=== PATIENT | female | born 1940 | race Caucasian/White ===

== ENCOUNTER 2017-02-22 09:25 | Inpatient (IN) | payer MEDICARE, OTHER ==
[2017-02-22 10:38] LABS: #Eosinphils 0.2 thou/uL (0.0-0.7); #Monocytes 0.7 thou/uL (0.11-0.59); #Neutrophils 6.8 thou/uL (1.40-6.50); %Basophils 0.4 % (0.0-1.0); %Eosinophils 1.9 % (0.0-10.0); %Lymphocytes 20.3 % (21.0-51.0); %Monocytes 7.4 % (0.0-10.0); Hemoglobin 12.8 g/dL (12.0-16.0); Mean Corpuscular HGB CONC 33.4 g/dL (32.0-36.0); Mean Corpuscular Hemoglobin 31.9 pg (27.0-31.0); Mean Corpuscular Volume 95.6 fl (81.0-99.0); Mean Platelet Volume 7.5 fL (7.4-10.4); Platelet Count 266 thou/uL (130-400); RBC Distribution Width 11.1 % (11.5-14.5); Red Blood Cell (RBC) Count 4.02 mill/uL (4.20-5.40); White Blood Cell (WBC) Count 9.7 thou/uL (4.8-10.8)
[2017-02-22] MEDS ORDERED: Ketorolac Tromethamine 30 MG/ML VIAL ONE (10:38)
[2017-02-22 10:54] LABS: Troponin I 0.017 ng/mL (< 0.028)
[2017-02-22 10:55] LABS: Prothrombin Time 13.7 SEC (12.0-14.7)
[2017-02-22 11:04] LABS: Lipase 3304 U/L (8-78)
[2017-02-22 11:10] LABS: PTT Less than 17.0 SEC (22.9-36.1)
[2017-02-22 11:24] LABS: Albumin 3.8 g/dL (3.4-4.8)
[2017-02-22 11:25] LABS: Chloride 108 mmol/L (98-107); Sodium 137 mmol/L (136-145)
[2017-02-22 11:26] LABS: Calcium 10.5 mg/dL (7.8-10.44); Glucose 256 mg/dL (83-110)
[2017-02-22 11:27] LABS: Globulin 3.2 g/dL (2.4-3.5)
[2017-02-22 11:28] LABS: Anion Gap 18 mmol/L (10-20); Bilirubin, Total 1.4 mg/dL (0.2-1.2); Carbon Dioxide 16 mmol/L (23-31)
[2017-02-22 11:29] LABS: Alkaline Phosphatase 72 U/L (40-150)
[2017-02-22 11:30] LABS: Calc. Creatinine Clearance 0 mL/min (70-130); Estimated GFR-MDRD 31
[2017-02-22 11:31] LABS: BUN (Urea Nitrogen) 43 mg/dL (9.8-20.1)
[2017-02-22 11:32] LABS: ALT (SGPT) 38 U/L (8-55); AST (SGOT) 70 U/L (5-34); CKMB 1.3 ng/mL (0-6.6)
[2017-02-22 11:33] LABS: CK (CPK) 33 U/L (29-168)
[2017-02-22 11:35] LABS: Bilirubin Negative (Negative); Blood, Urine Negative (Negative); Glucose, Urine (Dipstick) Negative (Negative); Leukocyte Trace (Negative); Nitrite Positive (Negative); Protein, Urine (Dipstick) 30 mg/dL (Neg-Trace); Specific Gravity, Urine 1.025 (1.005-1.030); Urobilinogen 0.2 mg/dL (0.2-1.0); pH, Urine 5.5 (5.0-9.0)
[2017-02-22 11:37] LABS: Clarity Clear (Clear)
[2017-02-22 11:47] LABS: RBC/HPF None Seen HPF (0-3)
[2017-02-22 11:48] LABS: Bacteria/HPF 4+ HPF (None Seen); Hyaline Casts/LPF 0-3 HYALINE CAST LPF (0-3 Hyaline)
--- NOTE | 2017-02-22 11:55 | RAD ---
PORTABLE UPRIGHT FRONTAL CHEST: Date: 02/22/17 COMPARISON: 06/30/16. HISTORY: Hemoptysis, hypoxia, right upper lobe pneumonia, or bronchoscopy. FINDINGS: Lungs are clear. Heart and mediastinal contours unremarkable. Stable transvenous pacing device. IMPRESSION: No acute findings. POS: [facility]
[2017-02-22] MEDS ORDERED: Iopamidol 370 76% 50 ML VIAL FS ONE (12:30)
[2017-02-22] MEDS ORDERED: ISOVUE-370 76%-LOCM 1 ML ONE (12:30)
--- NOTE | 2017-02-22 13:02 | CT ---
CT OF ABDOMEN AND PELVIS: Date: 02/22/17 COMPARISON: 07/02/16. HISTORY: Back pain and abdominal pain radiating into the legs. TECHNIQUE: Serial axial CT imaging at 5 mm intervals from lung bases through pubic symphysis with IV and oral co ntrast. Coronal reformatted imaging obtained. FINDINGS: The imaged lung bases are unremarkable. Cardiac silhouette is prominent. Incompletely imaged transven ous pacing device in place. No free intraperitoneal air or fluid. Mild intrahepatic biliary prominence is noted. The patient is status post cholecystectomy, likely acc ounting for this intrahepatic biliary prominence. CBD is dilated, also likely associated to prior cholecystectomy. Clinical correlation is required. Spleen, pancreas, and adrenal glands are unremarkable. Both kidneys are relatively atrophic and demon strate cortical thinning, a stable finding. Punctate nonobstructing stone noted in mid pole of right kidney. Neither kidney is obstructed. Extensive diverticulosis of the descending colon and sigmoid colon noted with no evidence for diverti culitis. No evidence for bowel inflammatory change or bowel obstruction. The appendix appears unremarkable. There is scattered atherosclerotic calcification of the abdominal aorta, mild. There is no pelvic, retroperitoneal, or mesenteric lymphadenopathy seen. Review of the osseous structures demonstrates multilevel significant degenerative disc disease within the lumbar spine, including disc space narrowing, degenerative end plate change, osteophyte formatio n, and vacuum disc formation at L3-4, L4-5, and L5-S1. IMPRESSION: 1. Status post cholecystectomy with prominence of the intra and extrahepatic biliary tree, likely on the basis of reservoir effect associated with prior surgery. Correlation with LFTs may be beneficial . 2. No free intraperitoneal air or evidence of bowel obstruction. 3. Subcentimeter nonobstructing stone mid pole right kidney. 4. Lumbar spine degenerative change. 5. Extensive colonic diverticulosis without evidence for diverticulitis. POS: [facility]
[2017-02-22] MEDS ORDERED: Cefepime 2 GM/10 ML SYR ONE ×2 (13:20→13:25)
[2017-02-22] MEDS ORDERED: Cefepime 2 GM, Syringe 2.5 ML in Sterile Water 10 ML SLOW IVP SCH (13:45)
--- NOTE | 2017-02-22 14:33 | HP ---
PRIMARY CARE PHYSICIAN: Dr. Jaime Rogers. REASON FOR ADMISSION: Acute pancreatitis, urinary tract infection, dehydration , acute on chronic kidney failure. HISTORY OF PRESENT ILLNESS: A 76-year-old female with a history of hypertension , diabetes type 2, and obesity who came to emergency room with complaint of midepigastric abdominal pain which is radiating to back. Patient also has lower back pain and that pain radiates to right leg. The patient was also having nausea, but no vomiting. She was feeling subjective warm. She does report that her urine was very foul smelling and discolored, but she denies any hematuria. She denies any lower abdominal pain. The patient was not able to tolerate food and her appetite has also reduced. Her pain was in the epigastric region which was intermittent and sharp in nature, about 5/10 in intensity getting worse with food. Patient's daughter gave her Tylenol #3 this morning, but her pain has not improved. She denies any chest pain. She does report mild shortness of breath. She denies any chills. She denies any hematochezia or melena. She denies any focal motor symptoms. Today in the emergency room, she had routine blood test, which showed elevated creatine to 1.62. Her lipase was elevated to 3304. Her urinalysis was suggestive of urinary tract infection. CT of the abdomen and pelvis which was done in the emergency room which showed prominence of bile duct and diverticulosis without any significant acute finding. Chest x-ray was unremarkable. In the emergency room, patient has received cefepime, IV fluid, and Toradol 15 mg. Subsequently, we are admitting this patient to medical floor for treatment of pancreatitis, urinary tract infection. I spoke with patient's daughter, Ms. Antoine on [phone] and updated about patient's presentation as well as the diagnosis and treatment plan and also history obtained from her as well. PAST MEDICAL HISTORY: Diabetes type 2, coronary artery disease, morbid obesity , hypertension, hypothyroidism, dyslipidemia, and gastroesophageal reflux disease. PAST SURGICAL HISTORY: Pacemaker placement, bilateral knee replacement, cholecystectomy, and lumbar spine surgery. PAST PSYCHIATRIC HISTORY: Anxiety and depression. FAMILY HISTORY: Diabetes runs among several family members. Father had a history of leukemia. No strong family history of stroke or coronary artery disease. SOCIAL HISTORY: The patient lives with her daughter, Elina. She denies any tobacco, alcohol or illicit drug abuse. REVIEW OF SYSTEMS: The following complete review of systems was negative, unless otherwise mentioned in the HPI or below: Constitutional: Weight loss or gain, ability to conduct usual activities. Skin: Rash, itching. Eyes: Double vision, pain. ENT/Mouth: Nose bleeding, neck stiffness, pain, tenderness. Cardiovascular: Palpitations, dyspnea on exertion, orthopnea. Respiratory: Shortness of breath, wheezing, cough, hemoptysis, fever or night sweats. Gastrointestinal: Poor appetite, abdominal pain, heartburn, nausea, vomiting, constipation, or diarrhea. Genitourinary: Urgency, frequency, dysuria, nocturia. Musculoskeletal: Pain, swelling. Neurologic/Psychiatric: Anxiety, depression. Allergy/Immunologic: Skin rash, bleeding tendency. Please see my HPI for pertinent positives and negatives. All other review of systems reviewed and negative except as mentioned in the HPI. EMERGENCY ROOM COURSE: Patient has received cefepime 2 g, normal saline 1 liter and Toradol 15 mg. CURRENT HOME MEDICATIONS: Patient did not bring her home medications, so unable to verify her home medication, but based on our previous hospitalization , the patient is on following medications: Tylenol p.r.n. basis, vitamin D3 2000 units p.o. daily, Lexapro 20 mg p.o. daily, Synthroid 125 mcg p.o. daily, losartan 100 mg p.o. daily, metoprolol succinate 50 mg p.o. daily, ranitidine 150 mg p.o. b.i.d., Zocor 20 mg p.o. at bedtime, and trospium 20 mg p.o. b.i.d. ALLERGIES: HYDROCODONE, LEVOFLOXACIN, and MORPHINE. PHYSICAL EXAMINATION: VITAL SIGNS: On arrival, blood pressure 143/64, pulse 72, respiratory rate 28, saturation 98% on room air, temperature 97.6, weight 106.6 kilograms. GENERAL: Patient is currently alert, awake, no acute distress. HEAD: Normocephalic, atraumatic. EYES: Pupils round, reactive to light. Extraocular muscle intact. No nystagmus. ENT: Oropharynx within normal limits, somewhat dry appearing mucous membranes. No oral lesions. No pharyngeal erythema, no exudate. NECK: Supple, no JVD, no thyromegaly, no carotid bruit, no meningeal signs of irritation. LUNGS: Clear to auscultation without any rhonchi or rales. CARDIAC: S1, S2 regular. No murmur, no gallop, no rub. ABDOMEN: Patient does have epigastric tenderness, but no peritoneal sign, no organomegaly, no mass, no suprapubic tenderness, no distention. Bowel sounds present. BACK: Examination unremarkable, no CVA tenderness. EXTREMITIES: Upper extremity passive movements of all joints are normal. Lower extremities: No edema. Good peripheral pulsation. SKIN: No skin rash. HEMATOLOGICAL SYSTEM: No lymphadenopathy. PSYCHIATRIC: Normal affect. NEUROLOGIC: Nonfocal examination. Her speech is normal. She moves all 4 limbs. Plantar bilateral flexor. IMAGING DATA AND SIGNIFICANT LABORATORY DATA: 1. EKG showing pacemaker rhythm. 2. Chest x-ray based on my review, no acute cardiopulmonary process. 3. CT of the abdomen and pelvis showing nonobstructive nephrolithiasis on the right side, diverticulosis, cholecystectomy, degenerative spine, medical renal disease. 4. CBC: WBC 9.7, hemoglobin 12.8, platelet 266. INR 1.0. 5. BMP: Sodium 137, potassium 5.0, chloride 108, carbon dioxide 16, anion gap 18, BUN 43, creatinine 1.62, glucose 256, calcium 10.5. 6. LFT: AST 70, ALT 38, alkaline phosphatase 72, albumin 3.8, lipase 3304, CK- MB 1.3, CK 32, troponin I 0.010. 7. Urinalysis consistent with urinary tract infection. ASSESSMENT AND PLAN/IMPRESSION: 1. Acute pancreatitis. This patient has epigastric abdominal pain which radiates to back, associated with elevated lipase 3304. Patient's CT abdomen and pelvis with contrast not showing any inflammatory changes around pancreas, but she has mild intrahepatic biliary prominence. She has cholecystectomy done , possibility of choledocholithiasis is likely, but patient does not have any elevated alkaline phosphatase. I am not certain why her lipase is this much unlimited but clinically patient has pancreatitis. We will keep this patient n.p.o. We will hydrate her with IV fluid and we will repeat lipase tomorrow and we will advance her diet from tomorrow once lipase is improving. We will also do ultrasound of gallbladder for better evaluation of any biliary stones in the bile duct. 2. Urinary tract infection. Based on previous culture and sensitivity result, I will start Rocephin 1 gram q.24 hours. Patient had received cefepime in the emergency room, patient also has foul smelling urine, but she is not febrile. She does not have any clinical evidence of pyelonephritis. She does have right- sided nephrolithiasis which is not obstructive. 3. Acute on chronic kidney failure, likely due to prerenal etiology from dehydration. This patient has underlying diabetic nephropathy with chronic kidney disease stage 3. Currently, mild metabolic acidosis and worsening renal failure. Patient will be given IV fluid and will repeat BMP tomorrow. We will avoid nephrotoxin agent. This patient has diastolic dysfunction, so we will watch for any fluid overload status. 4. Hypercalcemia, likely related with dehydration. 5. Mild metabolic acidosis likely related with dehydration and we are expecting hypercalcemia and metabolic acidosis will improve with hydration. 6. Diabetes type 2. We will continue with insulin as per sliding scale per protocol given the patient will be n.p.o., so we will hold on any specific therapy. We will monitor Accu-Chek very closely. 7. Anxiety and depression. Continue Lexapro 20 mg p.o. daily and trospium 20 mg p.o. b.i.d. after verification of dose. 8. Hypothyroidism. We will continue Synthroid 125 mcg p.o. daily. 9. Hypertension. Currently, patient is hypertensive, so we will resume losartan 100 mg p.o. daily and Toprol-XL 50 mg p.o. daily. 10. Dyslipidemia. We will check lipid profile tomorrow morning because of pancreatitis and we will continue Zocor 20 mg p.o. at bedtime. 11. Deep venous thrombosis prophylaxis, heparin 5000 units subcu twice daily. 12. Gastrointestinal prophylaxis, Protonix 40 mg IV daily. 13. Code status: The patient is FULL CODE. Patient's daughter is surrogate decision maker. Disposition plan based on clinical course. We are expecting patient's stay in hospital more than p.o. b.i.d. Plan of care discussed with the patient's daughter on the phone. MARIO
[2017-02-22] MEDS ORDERED: Ondansetron ODT 4 MG TAB SL PRN (16:29)
[2017-02-22] MEDS ORDERED: Ondansetron HCl/PF 4 MG/2 ML Vial IVP PRN ×2 (16:29→16:38)
[2017-02-22] MEDS ORDERED: Acetaminophen 325 MG TAB PO PRN (16:29)
[2017-02-22] MEDS ORDERED: Sodium Chloride 0.9% 1,000 ML IV SCH (16:29)
[2017-02-22] MEDS ORDERED: HumaLOG 300 UNITS/3 ML VIAL SC PRN (16:38)
[2017-02-22] MEDS ORDERED: Dextrose 50% Abboject 50 ML SYRINGE SLOW IVP PRN (16:38)
[2017-02-22] MEDS ORDERED: Milk Of Magnesia 30 ML UDCUP PO PRN (16:38)
[2017-02-22] MEDS ORDERED: Mag-Al 1200 mg/1200 mg/30 ML UDCUP PO PRN (16:38)
[2017-02-22] MEDS ORDERED: Sodium Chloride 0.65% Nasal 44 ML BOT EA NARE PRN (16:38)
[2017-02-22] MEDS ORDERED: Diabetic Tussin 200 MG/10 ML UDCUP PO PRN (16:38)
[2017-02-22] MEDS ORDERED: Artificial Tears 18 DROP/0.9 ML EA EYE PRN (16:38)
[2017-02-22] MEDS ORDERED: cefTRIAXone\\ROCEPHIN 1 GM in Sodium Chloride 0.9% 100 ML IVPB SCH (16:38)
[2017-02-22] MEDS ORDERED: Chloraseptic Spray 180 ml Bottle PO PRN (16:38)
[2017-02-22] MEDS ORDERED: hydrALAZINE 20 MG/ML VIAL SLOW IVP PRN (16:38)
[2017-02-22] MEDS ORDERED: Ondansetron ODT 4 MG TAB PO PRN (16:38)
[2017-02-22] MEDS ORDERED: Loperamide HCl 2 MG CAP PO PRN (16:38)
[2017-02-22] MEDS ORDERED: Dextrose 5% in Water 1,000 ML IV PRN (16:38)
[2017-02-22] MEDS ORDERED: Nystatin Powder 15 GM BOT TOP PRN (16:38)
[2017-02-22] MEDS ORDERED: Loratadine 10 MG TAB PO PRN (16:38)
[2017-02-22] MEDS ORDERED: Eucerin (Mineral Oil/Petrolatum,White) 30 gm Jar TOP PRN (16:38)
[2017-02-22] MEDS ORDERED: Senokot 8.6 MG TAB PO PRN (16:38)
[2017-02-22] MEDS ORDERED: Fentanyl 100 MCG/2 ML VIAL SLOW IVP PRN (16:38)
[2017-02-22] MEDS: Sodium Chloride 0.45% 1,000 ML IV SCH (17:18)
[2017-02-22 17:28] VITALS: BMI 39.9
[2017-02-22] MEDS: cefTRIAXone\\ROCEPHIN 1 GM, Syringe 0.4 ML in Sterile Water 9.6 ML SLOW IVP SCH (18:19)
--- NOTE | 2017-02-22 19:46 | ULT ---
RIGHT UPPER QUADRANT ULTRASOUND: History: Acute pancreatitis. Comparison: CT same day. FINDINGS: Pancreas is not well seen. The main portal vein is patent with antegrade flow. Mild extrahepatic bili shima dilatation. Right kidney is 9.2 x 3.8 x 3.2 cm without abnormal calcification. Common bile duct m easures 1.6 cm. Gallbladder has been surgically removed. IMPRESSION: Intrahepatic and extrahepatic biliary dilatation. No choledocholithiasis is appreciated. Distal stone is possible versus papillary stenosis. ERCP recommended. POS: [facility]
[2017-02-22] MEDS: Heparin 5,000 UNITS/ML VIAL SC SCH (20:44)
[2017-02-22] MEDS: Simvastatin 20 MG TAB PO SCH (20:44)
[2017-02-23] MEDS: Acetaminophen 325 MG TAB PO PRN ×4 (02:45→21:03)
[2017-02-23] MEDS: Sodium Chloride 0.45% 1,000 ML IV SCH ×3 (03:00→21:05)
[2017-02-23 05:03] LABS: #Eosinphils 0.2 thou/uL (0.0-0.7); #Lymphocytes 1.7 thou/uL (1.20-3.40); #Monocytes 0.6 thou/uL (0.11-0.59); #Neutrophils 3.9 thou/uL (1.40-6.50); %Basophils 0.1 % (0.0-1.0); %Eosinophils 3.8 % (0.0-10.0); %Lymphocytes 26.8 % (21.0-51.0); %Neutrophils 60.3 % (42.0-75.0); Hemoglobin 11.8 g/dL (12.0-16.0); Mean Corpuscular HGB CONC 33.6 g/dL (32.0-36.0); Mean Corpuscular Hemoglobin 32.1 pg (27.0-31.0); Mean Corpuscular Volume 95.6 fl (81.0-99.0); Mean Platelet Volume 7.1 fL (7.4-10.4); Platelet Count 240 thou/uL (130-400); RBC Distribution Width 10.9 % (11.5-14.5); Red Blood Cell (RBC) Count 3.68 mill/uL (4.20-5.40); White Blood Cell (WBC) Count 6.4 thou/uL (4.8-10.8)
[2017-02-23 05:17] LABS: ALT (SGPT) 116 U/L (8-55); AST (SGOT) 103 U/L (5-34); Albumin 3.4 g/dL (3.4-4.8); Alkaline Phosphatase 80 U/L (40-150); Anion Gap 12 mmol/L (10-20); BUN (Urea Nitrogen) 36 mg/dL (9.8-20.1); Bilirubin, Total 0.8 mg/dL (0.2-1.2); CRP (Inflammatory) 0.93 mg/dL (= or < 0.5); Calc. Creatinine Clearance 60 mL/min (70-130); Calcium 9.3 mg/dL (7.8-10.44); Carbon Dioxide 20 mmol/L (23-31); Cardiac Risk 5.2 (Less than 4.5); Chloride 111 mmol/L (98-107); Cholesterol 145 mg/dl (< 200 Desired); Estimated GFR-MDRD 37; Globulin 2.5 g/dL (2.4-3.5); Glucose 181 mg/dL (83-110); HDL Cholesterol 28 mg/dL (>60 Neg Risk); LDL Cholesterol, Calculated 61 mg/dL; Lipase 618 U/L (8-78); Magnesium 1.7 mg/dL (1.6-2.6); Phosphorus 3.5 mg/dL (2.3-4.7); Potassium 4.3 mmol/L (3.5-5.1); Protein, Total 5.9 g/dL (6.0-8.3); Sodium 139 mmol/L (136-145); Triglycerides 278 mg/dL (Less than 150)
[2017-02-23] MEDS: Levothyroxine Sodium 125 MCG TAB PO SCH (05:29)
[2017-02-23] MEDS: Heparin 5,000 UNITS/ML VIAL SC SCH ×2 (07:48→21:04)
[2017-02-23] MEDS ORDERED: Escitalopram Oxalate 20 mg Tablet PO SCH (09:00)
--- NOTE | 2017-02-23 11:05 | PDOC.PN ---
- Subjective Encounter Start Date: 02/23/17 Encounter Start Time: 09:00 -: old records requested/rev Patient seen and examined. No new complaints. No overnight events has less abdominal pain, no fever - Objective Resuscitation Status: Resuscitation Status FULL:Full Resuscitation MAR Reviewed: Yes Vital Signs & Weight: Vital Signs (12 hours) Temp Pulse Pulse Resp BP Pulse Ox Pulse Ox 02/23/17 09:50 58 L 98 02/23/17 08:00 97.9 F 59 L 22 H 95 02/23/17 07:59 97.9 F 59 L 22 H 126/67 95 02/23/17 04:00 97.7 F 61 18 132/69 97 02/23/17 00:00 97.9 F 58 L 20 119/77 97 Weight Weight 240 lb Result Diagrams: 02/23/17 04:14 02/23/17 04:14 Additional Labs: Accuchecks 02/23/17 02/22/17 02/22/17 05:13 22:03 16:33 POC Glucose 176 H 155 H 140 H Radiology Reviewed by me: Yes Phys Exam - Physical Examination Constitutional: NAD HEENT: PERRLA, moist MMs, sclera anicteric Neck: no JVD, supple Respiratory: no wheezing, no rales, no rhonchi Cardiovascular: RRR, no significant murmur, no rub Gastrointestinal: soft, no distention, positive bowel sounds epigastric pain Musculoskeletal: no edema, pulses present Neurological: non-focal, normal sensation Lymphatic: no nodes Psychiatric: normal affect Skin: no rash, normal turgor Dx/Plan (1) Abnormal LFTs Code(s): R79.89 - OTHER SPECIFIED ABNORMAL FINDINGS OF BLOOD CHEMISTRY Status : Acute (2) Acute pancreatitis Code(s): K85.90 - ACUTE PANCREATITIS WITHOUT NECROSIS OR INFECTION, UNSP Status: Acute (3) Acute worsening of stage 3 chronic kidney disease Code(s): N18.3 - CHRONIC KIDNEY DISEASE, STAGE 3 (MODERATE) Status: Acute Comment: resolving, almost baseline creatinine now (4) Metabolic acidosis Code(s): E87.2 - ACIDOSIS Status: Acute (5) UTI (urinary tract infection) Status: Acute Qualifiers: Comment: klebsiella (6) Anemia, normocytic normochromic Code(s): D64.9 - ANEMIA, UNSPECIFIED Status: Chronic (7) Anxiety and depression Code(s): F41.9 - ANXIETY DISORDER, UNSPECIFIED; F32.9 - MAJOR DEPRESSIVE DISORDER, SINGLE EPISODE, UNSPECIFIED Status: Chronic (8) CAD (coronary artery disease) Code(s): I25.10 - ATHSCL HEART DISEASE OF [place] CORONARY ARTERY W/O ANG PCTRS Status: Chronic Qualifiers: (9) Diabetes type 2, controlled Code(s): E11.9 - TYPE 2 DIABETES MELLITUS WITHOUT COMPLICATIONS Status: Chronic Qualifiers: (10) Dyslipidemia Code(s): E78.5 - HYPERLIPIDEMIA, UNSPECIFIED Status: Chronic (11) Hypertension Code(s): I10 - ESSENTIAL (PRIMARY) HYPERTENSION Status: Chronic Qualifiers: (12) Hypothyroidism Code(s): E03.9 - HYPOTHYROIDISM, UNSPECIFIED Status: Chronic Qualifiers: (13) Obesity (BMI 30-39.9) Code(s): E66.9 - OBESITY, UNSPECIFIED Status: Chronic - Plan cont current plan of care, continue antibiotics, PT/OT * continue rocephin * GI consult * repeat labs tomorrow * medication reviewed as below * symptomatic treatment * follow culture. Review of Systems - Review of Systems ENT: negative: Ear Pain, Ear Discharge, Nose Pain, Nose Discharge, Nose Congestion, Mouth Pain, Mouth Swelling, Throat Pain, Throat Swelling, Other Respiratory: negative: Cough, Dry, Shortness of Breath, Hemoptysis, SOB with Excertion, Pleuritic Pain, Sputum, Wheezing Cardiovascular: negative: chest pain, palpitations, orthopnea, paroxysmal nocturnal dyspnea, edema, light headedness, other Gastrointestinal: Abdominal Pain. negative: Nausea, Vomiting, Diarrhea, Constipation, Melena, Hematochezia, Other Genitourinary: negative: Dysuria, Frequency, Incontinence, Hematuria, Retention , Other Musculoskeletal: negative: Neck Pain, Shoulder Pain, Arm Pain, Back Pain, Hand Pain, Leg Pain, Foot Pain, Other Skin: negative: Rash, Lesions, Jeov[place], Bruising, Other - Medications/Allergies Allergies/Adverse Reactions: Allergies Allergy/AdvReac Type Severity Reaction Status Date / Time hydrocodone Allergy loose Verified 05/23/15 11:04 memory levofloxacin [From Levaquin] Allergy Verified 07/01/16 20:16 morphine Allergy Verified 07/02/16 18:01 Medications: Current Medications Acetaminophen (Tylenol) 650 mg PO Q4H PRN PRN Reason: Headache/Fever or Pain Last Admin: 02/23/17 06:28 Dose: 650 mg Al Hydroxide/Mg Hydroxide (Maalox) 30 ml PO Q6H PRN PRN Reason: Heartburn or Indigestion Artificial Tears (Tears Naturale) 0 drop EA EYE PRN PRN PRN Reason: Dry Eyes Cholecalciferol (Vitamin D3) 1,000 units PO [facility] Dextrose/Water (Dextrose 50%) 25 gm SLOW IVP PRN PRN PRN Reason: Hypoglycemia Fentanyl (Sublimaze) 25 mcg SLOW IVP Q4H PRN PRN Reason: Pain Glucagon (Glucagon) 1 mg IM PRN PRN PRN Reason: Hypoglycemia Guaifenesin (Robitussin Sf) 200 mg PO Q4H PRN PRN Reason: Cough Heparin Sodium (Porcine) (Heparin) 5,000 units SC BID [facility] Last Admin: 02/23/17 07:48 Dose: 5,000 units Hydralazine HCl (Apresoline) 10 mg SLOW IVP Q4H PRN PRN Reason: Systolic BP > 180 Sodium Chloride (1/2 Normal Saline) 1,000 mls @ 100 mls/hr IV .Q10H [facility] Last Admin: 02/23/17 03:00 Dose: 1,000 mls Dextrose/Water (D5w) 1,000 mls @ 0 mls/hr IV .Q0M PRN; As Directed PRN Reason: Hypoglycemia Ceftriaxone Sodium 1 gm/ (Syringe 0.4 ml/ Sterile Water) 10 mls @ 120 mls/hr SLOW IVP 1800 [facility] Last Admin: 02/22/17 18:19 Dose: 10 mls Insulin Human Lispro (Humalog) 0 units SC .MODERATE SLIDING SC PRN PRN Reason: Moderate [place]al Scale Insulin Human Lispro (Humalog) 0 units SC .BEDTIME SLIDING SC PRN PRN Reason: Bedtime Correctional Scale Levothyroxine Sodium (Synthroid) 125 mcg PO 0600 [facility] Last Admin: 02/23/17 05:29 Dose: 125 mcg Loperamide HCl (Imodium) 2 mg PO PRN PRN PRN Reason: Diarrhea/Loose Stools Last Admin: 02/23/17 11:03 Dose: 2 mg Loratadine (Claritin) 10 mg PO DAILYPRN PRN PRN Reason: Sinus Symptoms Magnesium Hydroxide (Milk Of Magnesium) 30 ml PO DAILYPRN PRN PRN Reason: Constipation Mineral Oil/White Petrolatum (Eucerin Cream) 0 gm TOP BIDPRN PRN PRN Reason: Dry Skin Non-Formulary Medication (Insulin Glargine,Hum.Rec.Anlog [Lantus]) 12 units SQ BID [facility] Nystatin (Mycostatin Powder) 1 gm TOP BID PRN PRN Reason: Topical Irritations Ondansetron HCl (Zofran Odt) 4 mg PO Q6H PRN PRN Reason: Nausea/Vomiting Ondansetron HCl (Zofran) 4 mg IVP Q6H PRN PRN Reason: Nausea/Vomiting Last Admin: 02/23/17 11:03 Dose: 4 mg Pantoprazole Sodium (Protonix) 40 mg IVP 2100 [facility] Phenol (Chloraseptic [place] 180 Ml Bot) 0 ml PO PRN PRN PRN Reason: Sore Throat Senna (Senokot) 2 tab PO HSPRN PRN PRN Reason: Constipation Simvastatin (Zocor) 20 mg PO HS [facility]ITA Last Admin: 02/22/17 20:44 Dose: 20 mg Sodium Chloride ([place] Nasal [place] 0.65%) 0 ml EA NARE QIDPRN PRN PRN Reason: Nasal Congestion
--- NOTE | 2017-02-23 16:22 | CON ---
DATE OF CONSULTATION: 02/23/2017 NEPHROLOGY CONSULTATION REASON FOR CONSULTATION: Elevated creatinine. The patient is being seen per her request. HISTORY OF PRESENT ILLNESS: This is a 76-year-old female with a baseline creatinine of 1.3, presented to the hospital with UTI like symptoms and was noted to have a creatinine of 1.62 after hydration and appropriate antibiotic therapy, patient's creatinine has improved. The patient denies headache, numbness, tingling or weakness. Denies any nausea, vomiting or chest pain. PAST MEDICAL HISTORY: Significant for hypertension, acute kidney injury with CKD, anemia, history of nephrolithiasis, diabetes mellitus, morbid obesity, hypothyroidism, GERD, history of pacemaker, knee replacement, cholecystectomy, and lumbar spine surgery. SOCIAL HISTORY: No alcohol or drug use. FAMILY HISTORY: Negative for ESRD. ALLERGIES: Reviewed. HOME MEDICATIONS: List reviewed. REVIEW OF SYSTEMS: A 15 point review of systems was performed and was negative except for positives noted above. GENERAL: Weakness- HEAD: Headache- NECK: No swelling or lumps. NOSE: No epistaxis or discharge. EYES: No diplopia or pain. RESPIRATORY: Dyspnea- CARDIOVASCULAR: Chest pain- GASTROINTESTINAL: Nausea- /GIG TENDER: Hematuria- MUSCULOSKELETAL: No joint pain. NEUROPSYCHIATIC SYSTEMS: No suicidal ideation. No ideation. SKIN: Denies any rash or ulcer. CONSTITUTIONAL: No fever or chills. PHYSICAL EXAMINATION: GENERAL: Patient is awake, alert. VITAL SIGNS: Afebrile, pulse 75, breathing at 16, blood pressure 127/77. HEAD/NECK: Normocephalic. Atraumatic. EYES: EOMI. No deformity. EARS: Clear. No ulcers. NOSE: Intact. No lesions. MOUTH: Clear. No discharge. THROAT: Clear. No exudate. LUNGS: Clear. No crackles. CARDIAC: S1, S2. No rub. ABDOMEN: Benign. BS+. GENITALIA/RECTUM: Liang absent. BACK/EXTREMITIES: Edema 0+ Ulcer- NEUROLOGICAL: Alert and motor intact. SKIN: Rash- Bruise- LYMPHATICS: Edema- Ulcer- LABORATORY DATA: Show creatinine 1.3. ASSESSMENT AND RECOMMENDATIONS: 1. Acute kidney injury, resolved. 2. Hypertension, stable. 3. Anemia, stable. 4. Medications based on glomerular filtration rate are appropriate. 5. Back pain, I would recommend CT scan of the lumbosacral spine. [facility]
[2017-02-23] MEDS: cefTRIAXone\\ROCEPHIN 1 GM, Syringe 0.4 ML in Sterile Water 9.6 ML SLOW IVP SCH (18:02)
[2017-02-23] MEDS: Insulin Detemir 100 UNITS/ML 12 UNITS in Pre-Filled Syringe 1 EACH SC SCH (20:37)
[2017-02-23] MEDS ORDERED: INSULIN GLARGINE HUM REC ANLOG 12 UNIT SQ SCH (21:00)
[2017-02-23] MEDS: Pantoprazole 40 MG VIAL IVP SCH (21:04)
[2017-02-23] MEDS: Simvastatin 20 MG TAB PO SCH (21:04)
--- NOTE | 2017-02-23 22:52 | CON ---
DATE OF CONSULTATION: 02/23/2017 REASON FOR CONSULTATION: Pancreatitis. HISTORY OF PRESENT ILLNESS: Ms. Ford is a 76-year-old female, who was admitted to the hospital yest erday secondary to abdominal pain and was found to have acute pancreatitis. She reports she has not had any pancreatitis in the past. She does not recall a lot of her history. She has become more for getful recently she states. In any event, she reports that she became ill yesterday morning with piyush n in the epigastric and abdominal area to the right mid back. She also is complaining of back pain t hat was radiating to her legs, starting in her lumbar area and radiating to both the right and left l eg, but more so on the right. Also, she will get pain in her left arm at times. Her back pain has b een chronic on and off since last year, but the abdominal pain was new on the day of admission yester day. It started around when she got up. She also was found to have elevated lipase over 1000, mildl y elevated LFTs. An ultrasound showed ductal dilatation, but no gallstones, and she had no gallbladd er. She states she has never had pancreatitis before. She denies alcohol use and her lipase is norm al. Now, she is feeling a little bit better, although still complains of her back pain and her leg p ain and nurses note she is voiding. She is n.p.o. PAST MEDICAL HISTORY: Notable for cardiomyopathy and she has a pacemaker. This apparently had been placed in [place], where she lived prior in 2016. She has type 2 diabetes, possible coronary artery disease, obesity, hypertension, hypothyroidism, dyslipidemia, and reflux. PAST SURGICAL HISTORY: Includes pacemaker placement, bilateral knee replacement, cholecystectomy, an d lumbar spine surgery. PAST PSYCHIATRIC HISTORY: Includes anxiety and depression. FAMILY HISTORY: No pancreatitis. SOCIAL HISTORY: The patient lives with daughter, Elina. She does not smoke, drink, or use drugs. I t ried to call Elina this evening, but I was not able to get through. Apparently, the hospitalist did ta lk to them. HOME MEDICATIONS: The patient has a bag of medicines here and she is on p.r.n. Tylenol, B12 complex, simvastatin, losartan, levothyroxine, insulin, docusate, vitamin D, and Tylenol p.r.n. PRESENT MEDICATIONS: Tylenol, hydrocortisone, Rocephin, D5W, fentanyl, glucagon, heparin, hydralazin e, insulin, levothyroxine, loperamide, magnesium, mineral oil, Zofran, Protonix, half normal saline a t 100 an hour. PHYSICAL EXAMINATION: GENERAL: The patient knows she is in the hospital. She does not have much recall for distant memory . She does not know her sister's or daughter's number. VITAL SIGNS: Temperature is 97, blood pressure is 126/67, pulse 58. She is a little bit anxious. P ulse is palpable, probably about in the 60s or 70s. LUNGS: Clear. HEART: Regular rate and rhythm without clicks or murmurs. ABDOMEN: Has positive bowel sounds. There is no rebound. There is no guarding. EXTREMITIES: No clubbing, cyanosis, or edema. She has got scars over both knees. Reflexes are norm al. SKIN: There is no rash or lesions. There is no ecchymosis around the umbilicus or flanks. LABORATORY STUDIES: White count is 6.4, it was 9.7 yesterday; hemoglobin was 12.8 yesterday, it is 1 1.8 today; platelet count was 266 yesterday and 240 today. Chemistry is notable for a BUN and creati nine of 36 and 1.39. She is about her baseline. She has a creatinine of 1.62 yesterday and a BUN of 43 yesterday. Sodium was 139, potassium 3.4. Bilirubin is 0.8, it was 1.4 yesterday. AST and ALT are 103 and 116, they were 70 and 38 yesterday. Alkaline phosphatase is 80. C-reactive protein is 0 .93. Triglycerides 278. Lipase is 618 today, yesterday it was 3304. An ultrasound was performed, showed intrahepatic and extrahepatic ductal dilatation with no choledoch olithiasis appreciated and no gallbladder. CAT scan showed the same with no notation of pancreatitis or pancreatic inflammation in the radiologist's report. Chest x-ray was normal. My review of radiologic films or CAT scan, I see no definite pancreatic mass, possibly some inflammat ion around the head of the pancreas. Tail of the pancreas appears clear. Pancreas was generally mil dly atrophic. ASSESSMENT: Suspected pancreatitis. Etiology is unclear. She could have passed a small stone or sl udge. She has had a previous cholecystectomy. She does not drink. She started no new medication re cently. She has had no viral illnesses recently and her lipase was normal. PLAN: I agree with continuing IV fluids. She does not need any antibiotics. These were not indicat ed in acute pancreatitis. We would repeat a liver function test and lipase tomorrow. If she continu es to improve, we can start to advance diet tomorrow and consider an MRCP to rule out any signs of ch oledocholithiasis if LFTs did not return to normal.
[2017-02-24 05:12] LABS: #Eosinphils 0.2 thou/uL (0.0-0.7); #Monocytes 0.7 thou/uL (0.11-0.59); #Neutrophils 5.4 thou/uL (1.40-6.50); %Basophils 0.2 % (0.0-1.0); %Lymphocytes 24.2 % (21.0-51.0); %Monocytes 7.9 % (0.0-10.0); %Neutrophils 64.8 % (42.0-75.0); Hemoglobin 12.2 g/dL (12.0-16.0); Mean Corpuscular HGB CONC 35.3 g/dL (32.0-36.0); Mean Corpuscular Hemoglobin 33.6 pg (27.0-31.0); Mean Corpuscular Volume 95.2 fl (81.0-99.0); Mean Platelet Volume 7.2 fL (7.4-10.4); Platelet Count 248 thou/uL (130-400); RBC Distribution Width 10.9 % (11.5-14.5); Red Blood Cell (RBC) Count 3.62 mill/uL (4.20-5.40); White Blood Cell (WBC) Count 8.4 thou/uL (4.8-10.8)
[2017-02-24 05:23] LABS: ALT (SGPT) 81 U/L (8-55); AST (SGOT) 42 U/L (5-34); Albumin 3.5 g/dL (3.4-4.8); Alkaline Phosphatase 82 U/L (40-150); Anion Gap 12 mmol/L (10-20); BUN (Urea Nitrogen) 28 mg/dL (9.8-20.1); Bilirubin, Total 0.6 mg/dL (0.2-1.2); Calc. Creatinine Clearance 60 mL/min (70-130); Calcium 9.5 mg/dL (7.8-10.44); Carbon Dioxide 21 mmol/L (23-31); Chloride 110 mmol/L (98-107); Estimated GFR-MDRD 37; Globulin 2.8 g/dL (2.4-3.5); Glucose 162 mg/dL (83-110); Lipase 137 U/L (8-78); Potassium 4.5 mmol/L (3.5-5.1); Protein, Total 6.3 g/dL (6.0-8.3); Sodium 138 mmol/L (136-145)
[2017-02-24] MEDS: Levothyroxine Sodium 125 MCG TAB PO SCH (05:35)
[2017-02-24] MEDS: Acetaminophen 325 MG TAB PO PRN (05:35)
[2017-02-24] MEDS: Insulin Detemir 100 UNITS/ML 12 UNITS in Pre-Filled Syringe 1 EACH SC SCH ×2 (07:40→20:09)
[2017-02-24] MEDS: Heparin 5,000 UNITS/ML VIAL SC SCH ×2 (07:40→20:00)
--- NOTE | 2017-02-24 10:22 | PDOC.PN ---
- Subjective Encounter Start Date: 02/24/17 Encounter Start Time: 08:40 Patient seen and examined. No new complaints. No overnight events - Objective Resuscitation Status: Resuscitation Status FULL:Full Resuscitation MAR Reviewed: Yes Vital Signs & Weight: Vital Signs (12 hours) Temp Pulse Resp BP Pulse Ox 02/24/17 08:00 97.5 F L 59 L 16 97 02/24/17 07:39 97.5 F L 59 L 16 145/74 H 97 02/24/17 04:00 97.4 F L 59 L 20 127/62 93 L 02/24/17 00:00 97.7 F 60 20 145/79 H 97 Weight Weight 240 lb Result Diagrams: 02/24/17 04:44 02/24/17 04:44 Additional Labs: Accuchecks 02/24/17 02/23/17 02/23/17 04:12 19:58 16:40 POC Glucose 148 H 164 H 173 H 02/23/17 11:21 POC Glucose 194 H Phys Exam - Physical Examination Constitutional: NAD HEENT: PERRLA, moist MMs, sclera anicteric Neck: no JVD, supple Respiratory: no wheezing, no rales, no rhonchi Cardiovascular: RRR, no significant murmur, no rub Gastrointestinal: soft, non-tender, no distention, positive bowel sounds Musculoskeletal: no edema, pulses present Neurological: non-focal, normal sensation Psychiatric: normal affect, A&O x 3 Skin: no rash, normal turgor Dx/Plan (1) Abnormal LFTs Code(s): R79.89 - OTHER SPECIFIED ABNORMAL FINDINGS OF BLOOD CHEMISTRY Status : Acute (2) Acute pancreatitis Code(s): K85.90 - ACUTE PANCREATITIS WITHOUT NECROSIS OR INFECTION, UNSP Status: Acute (3) Acute worsening of stage 3 chronic kidney disease Code(s): N18.3 - CHRONIC KIDNEY DISEASE, STAGE 3 (MODERATE) Status: Acute Comment: resolving, almost baseline creatinine now (4) Metabolic acidosis Code(s): E87.2 - ACIDOSIS Status: Acute (5) UTI (urinary tract infection) Status: Acute Qualifiers: Comment: klebsiella (6) Anemia, normocytic normochromic Code(s): D64.9 - ANEMIA, UNSPECIFIED Status: Chronic (7) Anxiety and depression Code(s): F41.9 - ANXIETY DISORDER, UNSPECIFIED; F32.9 - MAJOR DEPRESSIVE DISORDER, SINGLE EPISODE, UNSPECIFIED Status: Chronic (8) CAD (coronary artery disease) Code(s): I25.10 - ATHSCL HEART DISEASE OF [place] CORONARY ARTERY W/O ANG PCTRS Status: Chronic Qualifiers: (9) Diabetes type 2, controlled Code(s): E11.9 - TYPE 2 DIABETES MELLITUS WITHOUT COMPLICATIONS Status: Chronic Qualifiers: (10) Dyslipidemia Code(s): E78.5 - HYPERLIPIDEMIA, UNSPECIFIED Status: Chronic (11) Hypertension Code(s): I10 - ESSENTIAL (PRIMARY) HYPERTENSION Status: Chronic Qualifiers: (12) Hypothyroidism Code(s): E03.9 - HYPOTHYROIDISM, UNSPECIFIED Status: Chronic Qualifiers: (13) Obesity (BMI 30-39.9) Code(s): E66.9 - OBESITY, UNSPECIFIED Status: Chronic - Plan cont current plan of care, continue antibiotics * today MRCP * based on culture result, will change to meropenam * pt is on antibiotics for UTI * will consult dr kulkarni to decide about treatment for MDR UTI vs colonization * medication reviewed as below * symptomatic treatment. Review of Systems - Review of Systems ENT: negative: Ear Pain, Ear Discharge, Nose Pain, Nose Discharge, Nose Congestion, Mouth Pain, Mouth Swelling, Throat Pain, Throat Swelling, Other Respiratory: negative: Cough, Dry, Shortness of Breath, Hemoptysis, SOB with Excertion, Pleuritic Pain, Sputum, Wheezing Cardiovascular: negative: chest pain, palpitations, orthopnea, paroxysmal nocturnal dyspnea, edema, light headedness, other Gastrointestinal: negative: Nausea, Vomiting, Abdominal Pain, Diarrhea, Constipation, Melena, Hematochezia, Other Genitourinary: negative: Dysuria, Frequency, Incontinence, Hematuria, Retention , Other Musculoskeletal: negative: Neck Pain, Shoulder Pain, Arm Pain, Back Pain, Hand Pain, Leg Pain, Foot Pain, Other - Medications/Allergies Allergies/Adverse Reactions: Allergies Allergy/AdvReac Type Severity Reaction Status Date / Time hydrocodone Allergy loose Verified 05/23/15 11:04 memory levofloxacin [From Levaquin] Allergy Verified 07/01/16 20:16 morphine Allergy Verified 07/02/16 18:01 Medications: Current Medications Acetaminophen (Tylenol) 650 mg PO Q4H PRN PRN Reason: Headache/Fever or Pain Last Admin: 02/24/17 05:35 Dose: 650 mg Al Hydroxide/Mg Hydroxide (Maalox) 30 ml PO Q6H PRN PRN Reason: Heartburn or Indigestion Artificial Tears (Tears Naturale) 0 drop EA EYE PRN PRN PRN Reason: Dry Eyes Cholecalciferol (Vitamin D3) 1,000 units PO HS [facility] Last Admin: 02/23/17 21:03 Dose: 1,000 units Dextrose/Water (Dextrose 50%) 25 gm SLOW IVP PRN PRN PRN Reason: Hypoglycemia Fentanyl (Sublimaze) 25 mcg SLOW IVP Q4H PRN PRN Reason: Pain Glucagon (Glucagon) 1 mg IM PRN PRN PRN Reason: Hypoglycemia Guaifenesin (Robitussin Sf) 200 mg PO Q4H PRN PRN Reason: Cough Heparin Sodium (Porcine) (Heparin) 5,000 units SC BID [facility] Last Admin: 02/24/17 07:40 Dose: 5,000 units Hydralazine HCl (Apresoline) 10 mg SLOW IVP Q4H PRN PRN Reason: Systolic BP > 180 Sodium Chloride (1/2 Normal Saline) 1,000 mls @ 100 mls/hr IV .Q10H [facility] Last Admin: 02/23/17 21:05 Dose: 1,000 mls Dextrose/Water (D5w) 1,000 mls @ 0 mls/hr IV .Q0M PRN; As Directed PRN Reason: Hypoglycemia Insulin Detemir 12 units/ (Miscellaneous Medication) 0.12 mls @ 0 mls/hr SC BID [facility] Last Admin: 02/24/17 07:40 Dose: Not Given Meropenem 1 gm/ Sterile Water 20 mls @ 240 mls/hr SLOW IVP Q8HR [facility] Insulin Human Lispro (Humalog) 0 units SC .MODERATE SLIDING SC PRN PRN Reason: Moderate Correctional Scale Insulin Human Lispro (Humalog) 0 units SC .BEDTIME SLIDING SC PRN PRN Reason: Bedtime Correctional Scale Levothyroxine Sodium (Synthroid) 125 mcg PO 0600 [facility] Last Admin: 02/24/17 05:35 Dose: 125 mcg Loperamide HCl (Imodium) 2 mg PO PRN PRN PRN Reason: Diarrhea/Loose Stools Last Admin: 02/23/17 11:03 Dose: 2 mg Loratadine (Claritin) 10 mg PO DAILYPRN PRN PRN Reason: Sinus Symptoms Magnesium Hydroxide (Milk Of Magnesium) 30 ml PO DAILYPRN PRN PRN Reason: Constipation Mineral Oil/White Petrolatum (Eucerin Cream) 0 gm TOP BIDPRN PRN PRN Reason: Dry Skin Nystatin (Mycostatin Powder) 1 gm TOP BID PRN PRN Reason: Topical Irritations Ondansetron HCl (Zofran Odt) 4 mg PO Q6H PRN PRN Reason: Nausea/Vomiting Ondansetron HCl (Zofran) 4 mg IVP Q6H PRN PRN Reason: Nausea/Vomiting Last Admin: 02/23/17 11:03 Dose: 4 mg Pantoprazole Sodium (Protonix) 40 mg IVP 2100 [facility] Last Admin: 02/23/17 21:04 Dose: 40 mg Phenol (Chloraseptic [place] 180 Ml Bot) 0 ml PO PRN PRN PRN Reason: Sore Throat Senna (Senokot) 2 tab PO HSPRN PRN PRN Reason: Constipation Simvastatin (Zocor) 20 mg PO HS [facility] Last Admin: 02/23/17 21:04 Dose: 20 mg Sodium Chloride ([place] Nasal [place] 0.65%) 0 ml EA NARE QIDPRN PRN PRN Reason: Nasal Congestion
[2017-02-24] MEDS: Sodium Chloride 0.45% 1,000 ML IV SCH ×2 (10:59→20:08)
--- NOTE | 2017-02-24 12:29 | PRG ---
DATE OF SERVICE: 02/24/2017 Ms. Ford states she feels about the way she did yesterday. She is in no distress. PHYSICAL EXAMINATION: VITAL SIGNS: She was afebrile overnight. Temperature is 97.5, pulse 69, blood pressure 145/74. LUNGS: Clear. HEART: Regular rate and rhythm. ABDOMEN: Soft, nontender. LABORATORY STUDIES: White count 8.4, hemoglobin 12.2, platelet count 248. BUN and creatinine are 28 and 1.4, AST and ALT now down to 42 and 81, lipase down to 137. ASSESSMENT: 1. Pancreatitis, unclear etiology. The possibility of choledocholithiasis or passed stone is someth ing to be considered. She has had a previous cholecystectomy and did have transient elevation of tina er function test. 2. Normal renal function. 3. No signs of fever or infection. RECOMMENDATIONS: I would get an MRCP and if she has any signs of filling defects she will need an ER CP later. I will go ahead and order this. Dr. Espinoza to return and resume management from a GI standp oint tomorrow.
[2017-02-24] MEDS ORDERED: Meropenem 1 GM in Sodium Chloride 0.9% 100 ML IVPB SCH (14:00)
[2017-02-24] MEDS ORDERED: Meropenem 1 GM in Sterile Water 20 ML SLOW IVP SCH (14:00)
--- NOTE | 2017-02-24 16:00 | CON ---
DATE OF CONSULTATION: 02/24/2017 REASON FOR CONSULTATION: Abdominal pain, elevated lipase and right lower extremity pain. HISTORY OF PRESENT ILLNESS: A 76-year-old who has history of some form of cardiomyopathy with prior pacemaker placement, type 2 diabetes mellitus, and hypertension who has moved from [place] to live with family members, I believe in 2015. She had an admission in May because of hypoglycemia a nd confusional state. She underwent colonoscopy which only demonstrated diverticulosis. The patient had another admission one year later in 2017 because of nausea and vomiting, and diarrhea, mostly li quid. She also had cramps and diffuse abdominal pain. Reportedly, other family members had similar symptoms at that time. The discharge diagnoses included gastroenteritis, presumably infectious. She also had a positive urine culture for Klebsiella pneumonia with a very broad susceptibility profile. At that time, the urinalysis showed greater than 50 wbcs. This time, patient was admitted with new onset of upper abdominal pain in a band-like fashion from right to left side across the epigastrium. She at this time denies any referral pain from this original site, although in the admitting physic patricia's note reported that she did have back radiation of the pain. She also was having some nausea, b ut no episodes of vomiting. She does not recall any respiratory symptoms, no headaches, sore throat, odynophagia, or dysphagia. A little bit of neck pain. She also has this chronic recurring pain in the right pelvic/paravertebral/hip region which has been recurring for the past few months reportedly . Upon the development of this abdominal pain, the patient was brought to the emergency room by her daughter. Initial findings included BP 140/64, pulse 72, respirations 28, O2 saturation 98%, tempera ture 97.6. Initial exam, Neck supple. Lungs clear. Heart exam normal. Abdomen with some epigastri c tenderness, but no evidence of peritonitis. Initial lab results included white cell count 9.7, hemoglobin 12.8, MCV 95, platelets 266, and 70% ne utrophils. Sodium 137, creatinine 1.62 which is a bit higher than her baseline. Carbon dioxide 16 a nd calcium 10.5. Bilirubin 1.4, AST was 70, albumin 3.8. Lipase was elevated at 3300. Urinalysis w ith 7-10 wbcs. Currently, Ms. Ford is in the room. She was a bit confused. She has quite signific ant cognitive impairment, particularly in reference to memory and she has a hard time remembering seq uence of events. She could not remember the name of the city where she came from and so on. REVIEW OF SYSTEMS: A 10-point review of systems is as above. PAST MEDICAL HISTORY: She has some form of cardiomyopathy, probably ischemic, prior pacemaker placem ent, type 2 diabetes, hypothyroidism, obesity, and bilateral knee replacements. ALLERGIES: HYDROCODONE, LEVAQUIN, and MORPHINE. CURRENT MEDICATIONS: Include Tylenol, Maalox, vitamin D, Sublimaze, glucagon, Robitussin, heparin, A presoline, insulin, Synthroid, Imodium, meropenem, ondansetron, and pantoprazole. PHYSICAL EXAMINATION: VITAL SIGNS: T-max 98, blood pressure 140/70, pulse 59, respirations 16, O2 sat 97%. GENERAL: Appears somewhat bewildered, but no acute distress. SKIN: Essentially normal. She has a peripheral IV access. No Liang catheter. No lymphadenopathy. HEENT: Ocular movements are conjugate. Oral cavity normal. NECK: Supple. LUNGS: With symmetric clear breath sounds. HEART: S1, S2, regular rate. ABDOMEN: Soft. Pacer pocket site normal abdomen and there is some tenderness which is moderate acro ss the upper abdomen. She has quite a bit of tenderness in the right sacroiliac area and lower lumbo sacral spine area. Range of motion of right and left hip does not elicit any pain. No edema. Pulse s 1+ in dorsalis pedis. NEUROLOGIC: Plantar responses are flexor. She moves all extremities equally. Cognitive function ap pears to be somewhat impaired, particularly in reference to memory and short and long-term recall. LABORATORY DATA AND X-RAY FINDINGS: Subsequent labs with a white cell count 8.4, hemoglobin 12, and platelets 248. Creatinine has come down to 1.39 and AST up to 103, ALT 116. CRP is 0.93. Lipase do wn to 618. Abdomen and pelvis CT from admission, there is prominence of intrahepatic and extrahepati c biliary tree. No evidence of bowel obstruction. Chest x-ray with no acute findings. ASSESSMENT: 1. Type 2 diabetes. 2. Ischemic cardiomyopathy with pacemaker. 3. Fairly sudden onset of abdominal pain, which has improved, associated with elevation in lipase, w hich seems to be receding at this time. 4. Abnormal urinalysis with positive urine culture. DISCUSSION: Differential diagnoses include choledocholithiasis with transient obstruction associated with elevation of lipase, possibly from residual stone in the biliary tree. There is no evidence of pancreatitis in the imaging study. Other possibility would include ischemic bowel disease, which is not yet ruled out, although less likely. I do not believe that the urinary findings are responsible for the clinical presentation. I would recommend discontinuation of antimicrobial therapy at this p oint in time.
[2017-02-24] MEDS: HumaLOG 300 UNITS/3 ML VIAL SC PRN (17:21)
[2017-02-24] MEDS: Simvastatin 20 MG TAB PO SCH (20:01)
[2017-02-24] MEDS: Pantoprazole 40 MG VIAL IVP SCH (20:01)
[2017-02-25] MEDS: Levothyroxine Sodium 125 MCG TAB PO SCH (05:39)
[2017-02-25] MEDS: Sodium Chloride 0.45% 1,000 ML IV SCH (05:39)
[2017-02-25] MEDS: Insulin Detemir 100 UNITS/ML 12 UNITS in Pre-Filled Syringe 1 EACH SC SCH (08:54)
[2017-02-25] MEDS: Heparin 5,000 UNITS/ML VIAL SC SCH (08:56)
--- NOTE | 2017-02-25 10:07 | PRG ---
DATE OF SERVICE: 02/25/2017. GI INPATIENT DAILY PROGRESS NOTE SUBJECTIVE: Mrs. Ford says she is doing well. She has no further abdominal pain. No nausea or vom iting. She tolerated the solid food yesterday evening. OBJECTIVE: VITAL SIGNS: Temperature 97.9, pulse 58, blood pressure 146/76, 98% oxygen saturation on room air. GENERAL: No acute distress. HEART: Regular rate and rhythm. LUNGS: Clear to auscultation bilaterally. ABDOMEN: Soft and nontender to palpation throughout. EXTREMITIES: No peripheral edema. LABORATORY STUDIES: From this morning, glucose 147. Yesterday's CMP showed LFT improvement with tot al bilirubin 0.6, alkaline phosphatase 82, AST 42, ALT 81. Lipase down to 137. ASSESSMENT AND PLAN: 1. Acute pancreatitis, mild, clinically resolved. 2. Elevated liver function tests, transient, improving. Clinically, her pancreatitis appears to hav e resolved. I discussed with her again possible etiologies of pancreatitis. Imaging on admission di d show biliary dilation, but she is post-cholecystectomy. There was no clear stone or sludge in the bile duct based on CT or ultrasound. Dr. Magallon ordered an MRCP and I agree with this. This is stil l pending. If for some reason, the MRCP is unable to be performed today, I think she could be safely discharged from the hospital for outpatient followup. Please call any time with questions or concerns. ADDENDUM: It came to my attention that Ms. Ford is not going to be able to have an MRCP because she has a pace maker. That being the case, I would advise that she could be discharged from the hospital from a GI standpoint. We will follow up with her in a few weeks in clinic to see how she is doing. At that ti me, we could consider outpatient referral for endoscopic ultrasound to rule out biliary sludge in the bile duct. No plan for ERCP at this time given her clinical improvement and downtrend of the LFTs.
--- NOTE | 2017-02-25 10:35 | PDOC.PN ---
- Subjective Encounter Start Date: 02/25/17 Encounter Start Time: 08:10 Patient seen and examined. No new complaints. No overnight events - Objective Resuscitation Status: Resuscitation Status FULL:Full Resuscitation MAR Reviewed: Yes Vital Signs & Weight: Vital Signs (12 hours) Temp Pulse Resp BP Pulse Ox 02/25/17 07:26 97.9 F 58 L 16 146/76 H 98 02/25/17 05:07 97.7 F 59 L 20 143/70 H 97 Weight Weight 240 lb I&O: 02/24/17 02/25/17 02/26/17 06:59 06:59 06:59 Intake Total 1650 Balance 1650 Result Diagrams: 02/24/17 04:44 02/24/17 04:44 Additional Labs: Accuchecks 02/25/17 02/24/17 02/24/17 05:07 20:08 16:46 POC Glucose 147 H 161 H 240 H 02/24/17 11:48 POC Glucose 137 H Phys Exam - Physical Examination Constitutional: NAD HEENT: PERRLA, moist MMs, sclera anicteric Neck: no JVD, supple Respiratory: no wheezing, no rales, no rhonchi Cardiovascular: RRR, no significant murmur, no rub Gastrointestinal: soft, non-tender, no distention, positive bowel sounds Musculoskeletal: no edema, pulses present Neurological: non-focal, normal sensation Lymphatic: no nodes Psychiatric: normal affect, A&O x 3 Skin: no rash, normal turgor Dx/Plan (1) Abnormal LFTs Code(s): R79.89 - OTHER SPECIFIED ABNORMAL FINDINGS OF BLOOD CHEMISTRY Status : Acute (2) Acute pancreatitis Code(s): K85.90 - ACUTE PANCREATITIS WITHOUT NECROSIS OR INFECTION, UNSP Status: Acute (3) Acute worsening of stage 3 chronic kidney disease Code(s): N18.3 - CHRONIC KIDNEY DISEASE, STAGE 3 (MODERATE) Status: Acute Comment: resolving, almost baseline creatinine now (4) Metabolic acidosis Code(s): E87.2 - ACIDOSIS Status: Acute (5) UTI (urinary tract infection) Status: Acute Qualifiers: Comment: klebsiella (6) Anemia, normocytic normochromic Code(s): D64.9 - ANEMIA, UNSPECIFIED Status: Chronic (7) Anxiety and depression Code(s): F41.9 - ANXIETY DISORDER, UNSPECIFIED; F32.9 - MAJOR DEPRESSIVE DISORDER, SINGLE EPISODE, UNSPECIFIED Status: Chronic (8) CAD (coronary artery disease) Code(s): I25.10 - ATHSCL HEART DISEASE OF [place] CORONARY ARTERY W/O ANG PCTRS Status: Chronic Qualifiers: (9) Diabetes type 2, controlled Code(s): E11.9 - TYPE 2 DIABETES MELLITUS WITHOUT COMPLICATIONS Status: Chronic Qualifiers: (10) Dyslipidemia Code(s): E78.5 - HYPERLIPIDEMIA, UNSPECIFIED Status: Chronic (11) Hypertension Code(s): I10 - ESSENTIAL (PRIMARY) HYPERTENSION Status: Chronic Qualifiers: (12) Hypothyroidism Code(s): E03.9 - HYPOTHYROIDISM, UNSPECIFIED Status: Chronic Qualifiers: (13) Obesity (BMI 30-39.9) Code(s): E66.9 - OBESITY, UNSPECIFIED Status: Chronic - Plan cont current plan of care * as per ID-no need of antibiotics * MRCP not possible due to pacemaker * GI will arrange EUS * pt does not need SNU * medication reviewed as below * symptomatic treatment * will dc home * see discharge conner. Review of Systems - Review of Systems ENT: negative: Ear Pain, Ear Discharge, Nose Pain, Nose Discharge, Nose Congestion, Mouth Pain, Mouth Swelling, Throat Pain, Throat Swelling, Other Respiratory: negative: Cough, Dry, Shortness of Breath, Hemoptysis, SOB with Excertion, Pleuritic Pain, Sputum, Wheezing Cardiovascular: negative: chest pain, palpitations, orthopnea, paroxysmal nocturnal dyspnea, edema, light headedness, other Gastrointestinal: negative: Nausea, Vomiting, Abdominal Pain, Diarrhea, Constipation, Melena, Hematochezia, Other Genitourinary: negative: Dysuria, Frequency, Incontinence, Hematuria, Retention , Other Musculoskeletal: negative: Neck Pain, Shoulder Pain, Arm Pain, Back Pain, Hand Pain, Leg Pain, Foot Pain, Other - Medications/Allergies Allergies/Adverse Reactions: Allergies Allergy/AdvReac Type Severity Reaction Status Date / Time hydrocodone Allergy loose Verified 05/23/15 11:04 memory levofloxacin [From Levaquin] Allergy Verified 07/01/16 20:16 morphine Allergy Verified 07/02/16 18:01 Medications: Current Medications Acetaminophen (Tylenol) 650 mg PO Q4H PRN PRN Reason: Headache/Fever or Pain Last Admin: 02/24/17 05:35 Dose: 650 mg Al Hydroxide/Mg Hydroxide (Maalox) 30 ml PO Q6H PRN PRN Reason: Heartburn or Indigestion Artificial Tears (Tears Naturale) 0 drop EA EYE PRN PRN PRN Reason: Dry Eyes Cholecalciferol (Vitamin D3) 1,000 units PO HS [facility] Last Admin: 02/24/17 20:19 Dose: 1,000 units Dextrose/Water (Dextrose 50%) 25 gm SLOW IVP PRN PRN PRN Reason: Hypoglycemia Fentanyl (Sublimaze) 25 mcg SLOW IVP Q4H PRN PRN Reason: Pain Glucagon (Glucagon) 1 mg IM PRN PRN PRN Reason: Hypoglycemia Guaifenesin (Robitussin Sf) 200 mg PO Q4H PRN PRN Reason: Cough Heparin Sodium (Porcine) (Heparin) 5,000 units SC BID [facility] Last Admin: 02/25/17 08:56 Dose: 5,000 units Hydralazine HCl (Apresoline) 10 mg SLOW IVP Q4H PRN PRN Reason: Systolic BP > 180 Sodium Chloride (1/2 Normal Saline) 1,000 mls @ 100 mls/hr IV .Q10H [facility] Last Admin: 02/25/17 05:39 Dose: 1,000 mls Dextrose/Water (D5w) 1,000 mls @ 0 mls/hr IV .Q0M PRN; As Directed PRN Reason: Hypoglycemia Insulin Detemir 12 units/ (Miscellaneous Medication) 0.12 mls @ 0 mls/hr SC BID [facility] Last Admin: 02/25/17 08:54 Dose: 0.12 mls Insulin Human Lispro (Humalog) 0 units SC .MODERATE SLIDING SC PRN PRN Reason: Moderate Correctional Scale Last Admin: 02/24/17 17:21 Dose: 4 unit Insulin Human Lispro (Humalog) 0 units SC .BEDTIME SLIDING SC PRN PRN Reason: Bedtime Correctional Scale Levothyroxine Sodium (Synthroid) 125 mcg PO 0600 [facility] Last Admin: 02/25/17 05:39 Dose: 125 mcg Loperamide HCl (Imodium) 2 mg PO PRN PRN PRN Reason: Diarrhea/Loose Stools Last Admin: 02/23/17 11:03 Dose: 2 mg Loratadine (Claritin) 10 mg PO DAILYPRN PRN PRN Reason: Sinus Symptoms Magnesium Hydroxide (Milk Of Magnesium) 30 ml PO DAILYPRN PRN PRN Reason: Constipation Mineral Oil/White Petrolatum (Eucerin Cream) 0 gm TOP BIDPRN PRN PRN Reason: Dry Skin Nystatin (Mycostatin Powder) 1 gm TOP BID PRN PRN Reason: Topical Irritations Ondansetron HCl (Zofran Odt) 4 mg PO Q6H PRN PRN Reason: Nausea/Vomiting Ondansetron HCl (Zofran) 4 mg IVP Q6H PRN PRN Reason: Nausea/Vomiting Last Admin: 02/23/17 11:03 Dose: 4 mg Pantoprazole Sodium (Protonix) 40 mg IVP 2100 RITA Last Admin: 02/24/17 20:01 Dose: 40 mg Phenol (Chloraseptic [place] 180 Ml Bot) 0 ml PO PRN PRN PRN Reason: Sore Throat Senna (Senokot) 2 tab PO HSPRN PRN PRN Reason: Constipation Simvastatin (Zocor) 20 mg PO HS RITA Last Admin: 02/24/17 20:01 Dose: 20 mg Sodium Chloride ([place] Nasal [place] 0.65%) 0 ml EA NARE QIDPRN PRN PRN Reason: Nasal Congestion
--- NOTE | 2017-02-25 11:43 | DIS ---
PRIMARY CARE PHYSICIAN: Dr. Jaime Rogers DATE OF ADMISSION: 02/22/2017 DATE OF DISCHARGE: 02/25/2017 DISCHARGE DISPOSITION: Home. PRIMARY DISCHARGE DIAGNOSES: 1. Acute pancreatitis. 2. Abnormal liver function tests. 3. Acute on chronic kidney disease stage 3. 4. Metabolic acidosis. 5. Urinary tract infection ruled out. SECONDARY DISCHARGE DIAGNOSES: Obesity, with a BMI of 39, hypothyroidism, hypertension, dyslipidemia, diabetes type 2, coronary artery disease, anxiety and depression. PRIMARY PROCEDURE/OPERATION: None. RADIOLOGICAL INVESTIGATION: Chest x-ray showed no acute cardiopulmonary process. Abdomen and pelvis CT scan showed cholecystectomy, prominence of the intra and extrahepatic biliary tree, diverticulosis, degenerative spine changes. Abdominal ultrasound showed distal stone is possible with suspected early stenosis. SIGNIFICANT LABORATORY DATA: WBC 8.4, hemoglobin 12.2, platelet 248. INR 1.0. Sodium 138, potassium 4.5, BUN 28, creatinine 1.40, calcium 9.5, AST 42, ALT 81, alkaline phosphatase 82, albumin 3.5, lipase 137. Urinalysis suspected for UTI. Urine culture grew E. coli. DISCHARGE MEDICATIONS: Tylenol 1 gram p.o. b.i.d. p.r.n., vitamin D3 1000 units p.o. daily, Colace 100 mg p.o. b.i.d., Lantus insulin 12 units subq b.i.d. , Synthroid 125 mcg p.o. daily, Losartan 100 mg p.o. daily, Zocor 40 mg p.o. at bedtime, vitamin B complex 1 tablet p.o. daily. CONTRAINDICATIONS: None. CODE STATUS: Full code. INPATIENT CONSULTANTS: Dr. To saw this patient while in hospital. Dr. Magallon was consulted for pancreatitis. Dr. Sanders was consulted for MDR UTI. TEST RESULTS PENDING ON DISCHARGE: None. ALLERGIES: HYDROCODONE, LEVAQUIN and MORPHINE. DISCHARGE PLAN: Post hospital, the patient will follow up with primary care physician, Dr. Magallon and Dr. Sanders as instructed. HOSPITAL COURSE: A 76-year-old female who was admitted by me on 02/23/2016. Please see my HPI for further details. She presented to the emergency room with acute abdominal pain. She had elevated lipase. She was clinically diagnosed with acute pancreatitis. Initially her LFTs were normal, but the next day, her LFTs got abnormal, but over time LFTs were improving. Dr. Magallon was consulted. We did ultrasound of gallbladder which suspected distal stone versus papillary stenosis. An ERCP was recommended. Dr. Magallon was planning to do MRCP, but this patient has pacemaker and that is why MRCP was not possible. Dr. Espinoza saw this patient and he recommended that the ERCP is not needed at this point given the improving LFTs, but the patient will need an endoscopic ultrasound which will be arranged by them after discharge on an outpatient basis. While in the hospital, she had CT of the abdomen and pelvis which was unremarkable. Regarding urinary tract infection, initially was started with Rocephin, but based on culture results, we changed to meropenem. She never had any fever or leukocytosis while in hospital and that is why suspicion for UTI was very low and that is why we consulted Dr. Sanders. He also recommended not to give her any antibiotic therapy upon discharge. While in hospital, the patient was hydrated with IV fluid and her acute on chronic kidney failure was improved. Overall, this patient is doing very well. She does not want to go for any kind of correction home or any rehab, rather she wanted to go home. All consultants cleared her for discharge. The patient is seen and examined at bedside today. Please see my progress note from today for further details. walker is prescribed as per PT recommendation, Total time spent on discharge more than 30 minutes. MTDD
[2017-02-25] MEDS: HumaLOG 300 UNITS/3 ML VIAL SC PRN (11:56)
[2017-02-25 15:24] VITALS: BP 165/84; TEMP 97.3
== END 2017-02-25 14:23 | disposition home or self-care (01) | DRG 439 ==
LOC: ERS 09:25 → T4-A 13:28
PROVIDERS: ADMIT Internal Medicine; ATTEND Internal Medicine
DX: K85.90 Acute pancreatitis without necrosis or infection, unspecified (principal); N17.9 Acute kidney failure, unspecified; E87.2 Acidosis; E11.22 Type 2 diabetes mellitus with diabetic chronic kidney disease; E66.01 Morbid (severe) obesity due to excess calories; K91.86 Retained cholelithiasis following cholecystectomy; N18.3 Chronic kidney disease, stage 3 (moderate); I12.9 Hypertensive chronic kidney disease with stage 1 through stage 4 chronic kidney disease, or unspecified chronic kidney disease; E03.9 Hypothyroidism, unspecified; Z68.39 Body mass index [BMI] 39.0-39.9, adult; F41.9 Anxiety disorder, unspecified; F32.9 Major depressive disorder, single episode, unspecified; I25.10 Atherosclerotic heart disease of native coronary artery without angina pectoris; E78.5 Hyperlipidemia, unspecified; R79.89 Other specified abnormal findings of blood chemistry; Z95.0 Presence of cardiac pacemaker; I25.5 Ischemic cardiomyopathy; D64.9 Anemia, unspecified; E86.0 Dehydration; E83.52 Hypercalcemia; Z53.09 Procedure and treatment not carried out because of other contraindication
CPT/HCPCS: 36415; 36416; 71045; 74177; 76705; 80053; 80061; 81003; 81015; 82553; 83690; 83735; 84100; 84484; 85025; 85610; 85730; 86140; 87077; 87086; 87186; 93005; 96361; 96374; 96375; A4216; C9113; G8978-GP-CK; G8979-GP-CJ; G8987-GO-CI; G8988-GO-CI; G8989-GO-CI; J0692; J0696; J1644; J1815; J1885; J2405

== ENCOUNTER 2017-03-04 09:46 | Outpatient (CLI) | payer MEDICARE, OTHER | END 2017-03-04 09:47 | disposition home or self-care (01) | LOC: EEG 09:46 | PROVIDERS: ATTEND Student in an Organized Health Care Education/Training Program | DX: R41.3 Other amnesia (principal) | CPT/HCPCS: 95816 ==

== ENCOUNTER 2017-06-22 14:35 | Emergency (ER) | payer MEDICARE, OTHER ==
[2017-06-22 17:56] LABS: Bilirubin Negative (Negative); Blood, Urine Negative (Negative); Clarity CLEAR (Clear); Glucose, Urine (Dipstick) Negative (Negative); Leukocyte Small (Negative); Nitrite Positive (Negative); Protein, Urine (Dipstick) 30 mg/dL (Neg-Trace); Specific Gravity, Urine 1.019 (1.002-1.036); Urobilinogen 0.2 mg/dL (0.2-1.0); pH, Urine 5.5 (5.0-9.0)
[2017-06-22 17:57] LABS: Bacteria/HPF 4+ HPF (None Seen); Hyaline Casts/LPF 0-3 HYALINE CAST LPF (0-3 Hyaline); Pathc Cast-AUWi Flag 0.29 (0-2.49); RBC/HPF 0-3 HPF (0-3); Squamous Epithelial None Seen HPF (0-3)
== END 2017-06-22 18:34 | disposition home or self-care (01) ==
LOC: ERS 14:35
DX: N39.0 Urinary tract infection, site not specified (principal); E11.9 Type 2 diabetes mellitus without complications; E78.5 Hyperlipidemia, unspecified; I10 Essential (primary) hypertension; E66.9 Obesity, unspecified
CPT/HCPCS: 81003; 81015; 87077; 87086; 87186; 99283

== ENCOUNTER 2018-03-07 12:50 | Emergency (ER) | payer MEDICARE, OTHER ==
[2018-03-07 14:58] LABS: #Basophils 0.1 thou/uL (0.0-0.2); #Eosinphils 0.3 thou/uL (0.0-0.7); #Lymphocytes 2.8 thou/uL (1.20-3.40); #Monocytes 0.7 thou/uL (0.11-0.59); #Neutrophils 6.9 thou/uL (1.40-6.50); %Basophils 0.8 % (0.0-1.0); %Eosinophils 2.7 % (0.0-10.0); %Lymphocytes 26.1 % (21.0-51.0); %Monocytes 6.6 % (0.0-10.0); %Neutrophils 63.9 % (42.0-75.0); Hemoglobin 12.8 g/dL (12.0-16.0); Mean Corpuscular HGB CONC 33.3 g/dL (32.0-36.0); Mean Corpuscular Volume 93.2 fL (78.0-98.0); Mean Platelet Volume 7.3 fL (7.4-10.4); Platelet Count 304 thou/uL (130-400); RBC Distribution Width 11.9 % (11.5-14.5); Red Blood Cell (RBC) Count 4.13 mill/uL (4.20-5.40); White Blood Cell (WBC) Count 10.9 thou/uL (4.8-10.8)
[2018-03-07 15:19] LABS: Bilirubin Negative (Negative); Blood, Urine Trace (Negative); Clarity CLOUDY (Clear); Glucose, Urine (Dipstick) 100 mg/dL (Negative); Leukocyte Small (Negative); Nitrite Positive (Negative); Protein, Urine (Dipstick) 300 mg/dL (Neg-Trace); Specific Gravity, Urine 1.023 (1.002-1.036); Urobilinogen 0.2 mg/dL (0.2-1.0)
[2018-03-07 15:21] LABS: Bacteria/HPF 4+ HPF (None Seen); Pathc Cast-AUWi Flag 0.79 (0-2.49); RBC/HPF 0-3 HPF (0-3)
[2018-03-07 15:24] LABS: ALT (SGPT) 10 U/L (8-55); AST (SGOT) 14 U/L (5-34); Alkaline Phosphatase 79 U/L (40-150); Anion Gap 12 mmol/L (10-20); BUN (Urea Nitrogen) 29 mg/dL (9.8-20.1); Bilirubin, Total 0.4 mg/dL (0.2-1.2); Calc. Creatinine Clearance 0 mL/min (70-130); Calcium 9.7 mg/dL (7.8-10.44); Carbon Dioxide 25 mmol/L (23-31); Chloride 108 mmol/L (98-107); Estimated GFR-MDRD 28; Globulin 3.4 g/dL (2.4-3.5); Glucose 143 mg/dL (83-110); Potassium 3.9 mmol/L (3.5-5.1); Protein, Total 7.4 g/dL (6.0-8.3); Sodium 141 mmol/L (136-145)
[2018-03-07 15:30] LABS: Hyaline Casts/LPF 0-3 HYALINE CAST LPF (0-3 Hyaline)
[2018-03-07 15:31] LABS: Transitional Epithelial 0-3 HPF (0-3)
--- NOTE | 2018-03-07 17:51 | CT ---
CT HEAD NONCONTRAST: History: Fall. Head injury. Weakness. FINDINGS: No comparison. There is no evidence of acute intracranial hemorrhage or infarct. Diffuse cortical atr ophy and chronic ischemic small vessel disease. No mass effect or shift of midline structures. Promin ent mucosal thickening right maxillary sinus. IMPRESSION: 1. Prominent chronic ischemic small vessel disease. 2. Right maxillary sinusitis. POS: [facility]
== END 2018-03-07 18:24 | disposition home or self-care (01) ==
LOC: ERS 12:50
DX: M54.5 Low back pain (principal); R53.1 Weakness; N39.0 Urinary tract infection, site not specified; E11.9 Type 2 diabetes mellitus without complications; E78.5 Hyperlipidemia, unspecified; I10 Essential (primary) hypertension; E66.9 Obesity, unspecified; W19.XXXA Unspecified fall, initial encounter
CPT/HCPCS: 36415; 51701; 70450; 80053; 81003; 81015; 84484; 85025; 87077; 87086; 87186; 93005; A4353

== ENCOUNTER 2018-04-23 17:20 | Emergency (ER) | payer MEDICARE, OTHER ==
[2018-04-23 18:09] LABS: Bilirubin Negative (Negative); Blood, Urine Small (Negative); Clarity CLOUDY (Clear); Glucose, Urine (Dipstick) Negative (Negative); Leukocyte Small (Negative); Nitrite Negative (Negative); Protein, Urine (Dipstick) 300 mg/dL (Neg-Trace); Specific Gravity, Urine 1.021 (1.002-1.036); Urobilinogen 0.2 mg/dL (0.2-1.0)
[2018-04-23 18:11] LABS: Bacteria/HPF 4+ HPF (None Seen); Hyaline Casts/LPF 4-6 HYALINE CAST LPF (0-3 Hyaline); Pathc Cast-AUWi Flag 0.27 (0-2.49); RBC/HPF 0-3 HPF (0-3); Squamous Epithelial None Seen HPF (0-3); WBC/HPF 21-50 HPF (0-3)
[2018-04-23 20:23] LABS: #Eosinphils 0.3 thou/uL (0.0-0.7); #Lymphocytes 2.6 thou/uL (1.20-3.40); #Monocytes 0.8 thou/uL (0.11-0.59); #Neutrophils 9.4 thou/uL (1.40-6.50); %Basophils 0.3 % (0.0-1.0); %Monocytes 6.1 % (0.0-10.0); %Neutrophils 71.6 % (42.0-75.0); Mean Corpuscular HGB CONC 33.3 g/dL (32.0-36.0); Mean Corpuscular Hemoglobin 30.9 pg (27.0-31.0); Mean Corpuscular Volume 92.8 fL (78.0-98.0); Mean Platelet Volume 7.4 fL (7.4-10.4); Platelet Count 298 thou/uL (130-400); RBC Distribution Width 12.2 % (11.5-14.5); Red Blood Cell (RBC) Count 4.19 mill/uL (4.20-5.40); White Blood Cell (WBC) Count 13.2 thou/uL (4.8-10.8)
[2018-04-23 20:41] LABS: ALT (SGPT) 14 U/L (8-55); AST (SGOT) 23 U/L (5-34); Alkaline Phosphatase 74 U/L (40-150); Anion Gap 11 mmol/L (10-20); BUN (Urea Nitrogen) 50 mg/dL (9.8-20.1); Bilirubin, Total 0.7 mg/dL (0.2-1.2); Calc. Creatinine Clearance 0 mL/min (70-130); Carbon Dioxide 27 mmol/L (23-31); Chloride 105 mmol/L (98-107); Estimated GFR-MDRD 24; Globulin 3.2 g/dL (2.4-3.5); Glucose 108 mg/dL (83-110); Potassium 3.9 mmol/L (3.5-5.1); Protein, Total 7.2 g/dL (6.0-8.3); Sodium 139 mmol/L (136-145)
[2018-04-23] MEDS ORDERED: Sulfameth/Trimethoprim DS 800-160mg TAB ONE (22:16)
== END 2018-04-23 22:40 | disposition home or self-care (01) ==
LOC: ERS 17:20
DX: E86.0 Dehydration (principal); R19.7 Diarrhea, unspecified; R11.2 Nausea with vomiting, unspecified; N39.0 Urinary tract infection, site not specified; E03.9 Hypothyroidism, unspecified; E11.9 Type 2 diabetes mellitus without complications; E78.5 Hyperlipidemia, unspecified; I10 Essential (primary) hypertension; E66.9 Obesity, unspecified; Z79.899 Other long term (current) drug therapy; Z79.4 Long term (current) use of insulin
CPT/HCPCS: 36415; 80053; 81003; 81015; 85025; 87077; 87086; 87186; 99284

== ENCOUNTER 2018-06-27 13:16 | Emergency (ER) | payer MEDICARE, OTHER ==
[2018-06-27 14:19] LABS: #Basophils 0.1 thou/uL (0.0-0.2); #Eosinphils 0.1 thou/uL (0.0-0.7); #Lymphocytes 2.4 thou/uL (1.20-3.40); #Monocytes 0.8 thou/uL (0.11-0.59); #Neutrophils 8.8 thou/uL (1.40-6.50); %Basophils 0.5 % (0.0-1.0); %Eosinophils 1.1 % (0.0-10.0); %Lymphocytes 19.5 % (21.0-51.0); %Monocytes 6.5 % (0.0-10.0); %Neutrophils 72.4 % (42.0-75.0); Hemoglobin 12.1 g/dL (12.0-16.0); Mean Corpuscular HGB CONC 32.9 g/dL (32.0-36.0); Mean Corpuscular Hemoglobin 30.7 pg (27.0-31.0); Mean Corpuscular Volume 93.4 fL (78.0-98.0); Mean Platelet Volume 7.2 fL (7.4-10.4); Platelet Count 334 thou/uL (130-400); RBC Distribution Width 11.7 % (11.5-14.5); Red Blood Cell (RBC) Count 3.94 mill/uL (4.20-5.40); White Blood Cell (WBC) Count 12.1 thou/uL (4.8-10.8)
[2018-06-27 14:23] LABS: Actual Bicarbonate (HCO3a) 17.7 mEq/L (22-28); Analyzer IN Cardio ER; Calcium, Ionized 1.21 mmol/L (1.12-1.30); Carboxyhemoglobin (COHb) 0.3 gm% (0.0-3.0); Hemoglobin (Hb) 12.6 g/dL (12.0-16.0); O2 Tension (PaO2) 101.1 mmHg (> 70.0); Potassium - ABG Lab 4.09 mmol/L (3.70-5.30)
[2018-06-27 14:24] LABS: CO2 Tension 19.4 mmHg (35.0-45.0); Puncture Site LBA; pH, Arterial 7.58 (7.35-7.45)
[2018-06-27 14:40] LABS: ALT (SGPT) 9 U/L (8-55); AST (SGOT) 15 U/L (5-34); Acetaminophen Less than 6.0 mcg/mL (10.0-30.0); Alcohol Less than 10 mg/dL (Less than 10); Alkaline Phosphatase 70 U/L (40-150); Anion Gap 14 mmol/L (10-20); BUN (Urea Nitrogen) 37 mg/dL (9.8-20.1); Bilirubin, Total 0.6 mg/dL (0.2-1.2); CK (CPK) 70 U/L (29-168); Calc. Creatinine Clearance 0 mL/min (70-130); Calcium 9.9 mg/dL (7.8-10.44); Carbon Dioxide 23 mmol/L (23-31); Chloride 110 mmol/L (98-107); Estimated GFR-MDRD 28; Globulin 3.1 g/dL (2.4-3.5); Glucose 127 mg/dL (83-110); Potassium 4.3 mmol/L (3.5-5.1); Protein, Total 7.1 g/dL (6.0-8.3); Salicylate Less than 8.0 mg/dL (15.0-30.0); Sodium 143 mmol/L (136-145)
--- NOTE | 2018-06-27 14:43 | RAD ---
PORTABLE CHEST: HISTORY: Mental status change. COMPARISON: 02/22/2017. FINDINGS: Lung fry are clear5. Heart size upper normal and stable. Pacemaker leads unchanged. IMPRESSION: No acute process. POS: OFF
--- NOTE | 2018-06-27 14:49 | CT ---
CT HEAD WITHOUT CONTRAST: Multiple axial tomograms obtained through the head without IV enhancement. HISTORY: Mental status change. COMPARISON: Head CT of 03/07/2018. FINDINGS: Cortical volume loss is again noted, especially prominent in the left temporal region. Chronic ische jennifer white matter changes again noted. No evidence of mass, edema, or acute infarct. Sinuses and mas toids remain aerated and clear. IMPRESSION: No acute finding. Stable head CT when compared to prior studies. POS: OFF
[2018-06-27 15:01] LABS: Bilirubin Negative (Negative); Blood, Urine Trace (Negative); Clarity CLEAR (Clear); Glucose, Urine (Dipstick) 100 mg/dL (Negative); Leukocyte Small (Negative); Nitrite Positive (Negative); Protein, Urine (Dipstick) 300 mg/dL (Neg-Trace); Urobilinogen 0.2 mg/dL (0.2-1.0)
[2018-06-27 15:03] LABS: Bacteria/HPF 4+ HPF (None Seen); Hyaline Casts/LPF 7-10 HYALINE CAST LPF (0-3 Hyaline); Pathc Cast-AUWi Flag 1.76 (0-2.49); RBC/HPF 0-3 HPF (0-3); Squamous Epithelial 0-3 HPF (0-3)
[2018-06-27 15:10] LABS: Amphetamine Not Detected (NotDetected); Barbiturates Screen Not Detected (NotDetected); Benzodiazepine Screen Not Detected (NotDetected); Cocaine Metabolite Screen Not Detected (NotDetected); Medtox Control Line Valid? VALID (VALID); Medtox Reader # READER 4; Methadone Not Detected (NotDetected); Methamphetamine Not Detected (NotDetected); Opiate Screen Detected (NotDetected); Oxycodone Screen Not Detected (NotDetected); Phencyclidine (PCP) Not Detected (NotDetected); THC/Cannabinoid Screen Not Detected (NotDetected); Tricyclic Screen Not Detected (NotDetected)
[2018-06-27] MEDS ORDERED: hydrALAZINE 20 MG/ML VIAL ONE (16:41)
[2018-06-27] MEDS ORDERED: cloNIDine 0.1 MG TAB ONE (17:41)
[2018-06-27] MEDS ORDERED: Sulfameth/Trimethoprim DS 800-160mg TAB ONE (17:41)
== END 2018-06-27 18:45 | disposition home or self-care (01) ==
LOC: ERS 13:16
DX: N39.0 Urinary tract infection, site not specified (principal); R41.82 Altered mental status, unspecified; E03.9 Hypothyroidism, unspecified; E11.9 Type 2 diabetes mellitus without complications; E78.5 Hyperlipidemia, unspecified; E66.9 Obesity, unspecified; I10 Essential (primary) hypertension; Z86.19 Personal history of other infectious and parasitic diseases; Z79.899 Other long term (current) drug therapy
CPT/HCPCS: 70450; 71045; 80053; 80306; 80307; 81003; 81015; 82550; 82805; 83605; 83880; 84484; 85025; 87077; 87086; 87186; 93005; 96374; J0360

== ENCOUNTER 2018-07-07 16:06 | Inpatient (IN) | payer MEDICARE, OTHER ==
[2018-07-07 16:55] LABS: #Basophils 0.1 thou/uL (0.0-0.2); #Eosinphils 0.5 thou/uL (0.0-0.7); #Lymphocytes 2.4 thou/uL (1.20-3.40); #Monocytes 0.8 thou/uL (0.11-0.59); #Neutrophils 6.2 thou/uL (1.40-6.50); %Basophils 0.9 % (0.0-1.0); %Eosinophils 4.6 % (0.0-10.0); %Lymphocytes 23.8 % (21.0-51.0); %Monocytes 7.6 % (0.0-10.0); Mean Corpuscular HGB CONC 33.2 g/dL (32.0-36.0); Mean Corpuscular Volume 93.3 fL (78.0-98.0); Mean Platelet Volume 7.8 fL (7.4-10.4); Platelet Count 303 thou/uL (130-400); RBC Distribution Width 11.7 % (11.5-14.5); Red Blood Cell (RBC) Count 3.86 mill/uL (4.20-5.40); White Blood Cell (WBC) Count 9.9 thou/uL (4.8-10.8)
[2018-07-07 17:24] LABS: ALT (SGPT) 12 U/L (8-55); AST (SGOT) 13 U/L (5-34); Albumin 3.8 g/dL (3.4-4.8); Alkaline Phosphatase 75 U/L (40-150); Anion Gap 13 mmol/L (10-20); BUN (Urea Nitrogen) 32 mg/dL (9.8-20.1); Bilirubin, Total 0.3 mg/dL (0.2-1.2); Calc. Creatinine Clearance 0 mL/min (70-130); Calcium 9.6 mg/dL (7.8-10.44); Carbon Dioxide 21 mmol/L (23-31); Chloride 108 mmol/L (98-107); Estimated GFR-MDRD 27; Globulin 3.3 g/dL (2.4-3.5); Glucose 218 mg/dL (83-110); Potassium 5.1 mmol/L (3.5-5.1); Protein, Total 7.1 g/dL (6.0-8.3); Sodium 137 mmol/L (136-145)
[2018-07-07] MEDS ORDERED: Meropenem 2 GM in Sodium Chloride 0.9% 100 ML IVPB SCH (17:30)
[2018-07-07] MEDS ORDERED: Ondansetron PF 4 MG/2 ML Vial IVP PRN (18:35)
[2018-07-07] MEDS ORDERED: Acetaminophen 650 MG Suppository PR PRN (18:35)
[2018-07-07] MEDS ORDERED: Ondansetron ODT 4 MG TAB PO PRN (18:35)
[2018-07-07] MEDS ORDERED: Acetaminophen 325 MG TAB PO PRN (18:35)
[2018-07-07] MEDS ORDERED: Dextrose 50% Abboject 50 ML SYRINGE SLOW IVP PRN (18:38)
[2018-07-07] MEDS ORDERED: Dextrose 5% in Water 1,000 ML IV PRN (18:38)
[2018-07-07] MEDS ORDERED: HumaLOG 300 UNITS/3 ML VIAL SC PRN ×2 (18:38)
[2018-07-07] MEDS ORDERED: Meropenem 1 GM in Sodium Chloride 0.9% 100 ML IVPB SCH (19:30)
[2018-07-07] MEDS: Sodium Chloride 0.9% 1,000 ML IV SCH (19:54)
[2018-07-07 20:32] LABS: Bilirubin Negative (Negative); Blood, Urine Negative (Negative); Clarity CLEAR (Clear); Glucose, Urine (Dipstick) Negative (Negative); Leukocyte Negative (Negative); Nitrite Positive (Negative); Protein, Urine (Dipstick) 100 mg/dL (Neg-Trace); Specific Gravity, Urine 1.014 (1.002-1.036); Urobilinogen 0.2 mg/dL (0.2-1.0)
[2018-07-07 20:45] LABS: Bacteria/HPF Rare-Few HPF (None Seen); Hyaline Casts/LPF 0-3 HYALINE CAST LPF (0-3 Hyaline); RBC/HPF 0-3 HPF (0-3); Squamous Epithelial 0-3 HPF (0-3); WBC/HPF 0-3 HPF (0-3)
[2018-07-07 20:47] LABS: Urine Culture Reflex Yes Yes
[2018-07-07] MEDS: MEROPENEM 1 GM/50 ML 1 GM in Premix Bag 1 BAG IVPB SCH (20:47)
[2018-07-07] MEDS ORDERED: Famotidine/PF 20 mg/2ml Vial SLOW IVP SCH (21:00)
[2018-07-07 21:10] VITALS: BMI 35.1
--- NOTE | 2018-07-07 22:08 | HP ---
CHIEF COMPLAINT: Confusion. HISTORY OF PRESENT ILLNESS: Ms. Ford is a pleasant 77-year-old woman, who was recently seen earlier this month and treated for a urinary tract infection. She was given a prescription for ciprofloxacin. The patient has developed some increased confusion in recent days. Upon review of previous urine culture and sensitivities, the ER physician has noted that she in fact has multidrug-resistant UTI with culture positive for E coli. She also has acute on chronic renal insufficiency. Her renal function is worse than baseline and her creatinine is currently 1.86. The only oral antibiotic she is sensitive to is nitrofurantoin. She was started on meropenem in the ER and admitted for IV antibiotics and gentle hydration. The patient is pleasantly confused. She is able to answer questions appropriately in regard to her review of systems. She denies having any nausea or vomiting. Denies having any headaches or dizziness. She denies having any recent fevers, chills, or sweats. No cough or hemoptysis. She has not had any abdominal pain. She does report urinary frequency, but denies any dysuria. She has not had any changes with her bowels. No other complaints. PAST MEDICAL HISTORY: 1. Hypothyroidism. 2. Hepatitis A. 3. Coronary artery disease. 4. Pacemaker. 5. Diabetes. 6. Hyperlipidemia. 7. Hypertension. 8. Obesity. 9. Frequent UTIs. PAST SURGICAL HISTORY: 1. Bilateral knee surgery. 2. Carpal tunnel surgery. 3. Spinal surgery. 4. Lumbar spine surgery. 5. Pacemaker replaced in June 2018. SOCIAL HISTORY: She denies any alcohol use or tobacco use. Denies any illicit drug use. ALLERGIES: NO KNOWN DRUG ALLERGIES. CURRENT MEDICATIONS: 1. Memantine. 2. Gabapentin. 3. Cephalexin. 4. Benzonatate. 5. Levothyroxine. 6. Simvastatin. 7. Zyrtec. 8. Tylenol with Codeine. PHYSICAL EXAMINATION: GENERAL: The patient appears obese, well developed and in no acute distress. VITAL SIGNS: Temperature 97.7, pulse 60, respirations 18, O2 saturation 95% on room air. HEENT: Normocephalic and atraumatic. Pupils are equal, round, and reactive to light. Sclerae are without icterus. Extraocular movements intact. Oropharynx is clear. NECK: Supple. LUNGS: Clear to auscultation bilaterally without any wheezes, rales, or rhonchi. CARDIAC: Regular rate and rhythm. ABDOMEN: Soft, nontender, nondistended. Normoactive bowel sounds present. No guarding or rigidity. No renal angle tenderness. EXTREMITIES: Without any lower leg edema or swelling. No calf tenderness. NEUROLOGIC: Alert and oriented x2, very pleasant, able to answer most questions appropriately; however, with difficulty recalling events that brought her to the hospital. She does know where she is. Able to follow commands appropriately. Speech normal. SKIN: No rash or jaundice. LABORATORY DATA: White blood count 9.9, hemoglobin 12, hematocrit 36, platelets 303. Sodium 137, potassium 5.1, chloride 108, carbon dioxide 21, anion gap 13, BUN 32, creatinine 1.84, GFR 27, glucose 218, calcium 9.6. LFTs unremarkable. Urinalysis, protein 100, nitrite positive. Previous urine culture done on 06/27/2018, positive for E coli. Resistant to multiple drugs. Sensitive to amikacin, gentamicin, meropenem, nitrofurantoin, and tobramycin. IMAGING DATA: None. IMPRESSION AND PLAN: Ms. Ford is a very pleasant 77-year-old woman, who is being admitted for management of the following. 1. Confusion. The patient does have underlying dementia. We will resume home medications and continue to monitor. No focal neurology. Likely exacerbated by underlying urinary tract infection. 2. Multidrug-resistant urinary tract infection. Culture done on 06/27/2018, positive for Escherichia coli and resistant to cephalosporins, which she was discharged on. Has been started on meropenem in the ER. We will continue. Repeat UA and urine culture are pending. The patient is asymptomatic at present. 3. Diabetes. Initiate insulin sliding scale. Monitor glucose. 4. Hypothyroidism. Resume home medication. 5. Hypertension. Monitor blood pressure and resume home medications. 6. Gastrointestinal prophylaxis. 7. Deep venous thrombosis prophylaxis with mechanical SCDs. 8. Full code status. Surrogate decision maker is her daughter, Laura Ford. The patient's case was discussed with Dr. Astorga, who agrees with plan of care as described above. Job ID: [id number]
[2018-07-08] MEDS: MEROPENEM 1 GM/50 ML 1 GM in Premix Bag 1 BAG IVPB SCH ×3 (04:10→19:34)
[2018-07-08] MEDS: Levothyroxine Sodium 125 MCG TAB PO SCH (05:31)
[2018-07-08 05:54] LABS: #Basophils 0.1 thou/uL (0.0-0.2); #Eosinphils 0.6 thou/uL (0.0-0.7); #Lymphocytes 2.6 thou/uL (1.20-3.40); #Monocytes 0.7 thou/uL (0.11-0.59); %Basophils 0.7 % (0.0-1.0); %Eosinophils 6.3 % (0.0-10.0); %Monocytes 8.2 % (0.0-10.0); %Neutrophils 55.9 % (42.0-75.0); Hemoglobin 11.1 g/dL (12.0-16.0); Mean Corpuscular HGB CONC 32.5 g/dL (32.0-36.0); Mean Corpuscular Hemoglobin 30.5 pg (27.0-31.0); Mean Corpuscular Volume 93.8 fL (78.0-98.0); Mean Platelet Volume 7.5 fL (7.4-10.4); Platelet Count 257 thou/uL (130-400); RBC Distribution Width 11.6 % (11.5-14.5); Red Blood Cell (RBC) Count 3.64 mill/uL (4.20-5.40); White Blood Cell (WBC) Count 8.9 thou/uL (4.8-10.8)
[2018-07-08 06:14] LABS: Anion Gap 11 mmol/L (10-20); BUN (Urea Nitrogen) 27 mg/dL (9.8-20.1); Calc. Creatinine Clearance 47 mL/min (70-130); Calcium 9.4 mg/dL (7.8-10.44); Carbon Dioxide 25 mmol/L (23-31); Chloride 110 mmol/L (98-107); Estimated GFR-MDRD 33; Glucose 140 mg/dL (83-110); Potassium 4.5 mmol/L (3.5-5.1); Sodium 141 mmol/L (136-145)
[2018-07-08] MEDS: Losartan 25 MG TAB PO SCH (07:32)
[2018-07-08] MEDS: Gabapentin 300 MG CAP PO SCH ×3 (07:33→19:40)
[2018-07-08] MEDS: Cetirizine HCl 10 MG TAB PO SCH (08:25)
--- NOTE | 2018-07-08 10:40 | PDOC.PN ---
- Subjective Encounter Start Date: 07/08/18 Encounter Start Time: 10:38 Patient reports she has been "exposed to some things" and has difficulty walking as a result. Denies any specific concerns except being cold. - Objective Resuscitation Status - Order Detail: 07/07/18 18:35 Resuscitation Status Routine Co-Sign Provider: Resuscitation Status: FULL: Full Resuscitation Vital Signs & Weight: Vital Signs (12 hours) Temp Pulse Resp BP Pulse Ox 07/08/18 08:00 96 07/08/18 07:46 97.4 F L 60 16 164/82 H 96 07/08/18 05:55 97.5 F L 61 20 183/93 H 96 07/07/18 23:32 98.2 F 60 20 142/72 H 97 Weight Weight 211 lb I&O: 07/07/18 07/08/18 07/09/18 06:59 06:59 06:59 Intake Total 400 Balance 400 Result Diagrams: 07/08/18 05:32 07/08/18 05:32 Additional Labs: Accuchecks 07/08/18 07/07/18 05:56 20:29 POC Glucose 166 H 165 H Phys Exam - Physical Examination Constitutional: NAD Respiratory: no wheezing, no rales, no rhonchi, clear to auscultation bilateral Cardiovascular: RRR, no significant murmur, no rub Gastrointestinal: soft, non-tender, no distention, positive bowel sounds Musculoskeletal: no edema Neurological: non-focal, normal sensation, moves all 4 limbs Psychiatric: normal affect Skin: no rash, normal turgor, cap refill <2 seconds Dx/Plan (1) Encephalopathy Code(s): G93.40 - ENCEPHALOPATHY, UNSPECIFIED Status: Acute (2) Dementia Code(s): F03.90 - UNSPECIFIED DEMENTIA WITHOUT BEHAVIORAL DISTURBANCE Status: Acute (3) Acute worsening of stage 3 chronic kidney disease Code(s): N18.3 - CHRONIC KIDNEY DISEASE, STAGE 3 (MODERATE) Status: Acute Comment: resolving, almost baseline creatinine now (4) UTI (urinary tract infection) Status: Acute Qualifiers: Comment: klebsiella (5) CAD (coronary artery disease) Code(s): I25.10 - ATHSCL HEART DISEASE OF [place] CORONARY ARTERY W/O ANG PCTRS Status: Chronic Qualifiers: (6) Diabetes type 2, controlled Code(s): E11.9 - TYPE 2 DIABETES MELLITUS WITHOUT COMPLICATIONS Status: Chronic Qualifiers: (7) Dyslipidemia Code(s): E78.5 - HYPERLIPIDEMIA, UNSPECIFIED Status: Chronic (8) Hypertension Code(s): I10 - ESSENTIAL (PRIMARY) HYPERTENSION Status: Chronic Qualifiers: - Plan * Was seen in the ED on the with AMS. Had evidence of UTI and was treated with po Bactrim as OP. * Has apparently become more confused over several days. * Urine culture grew MDR E. coli not sensitive to Bactrim. * Admitted for treatment of MDR E. coli UTI, but UA does not look bad. * On meropenem. * Has hx of dementia based on home meds. * Not clear that the AMS is related to UTI or that UTI currently exists. * She has grown MDR E. coli several times in the past and may be colonized. * No fever, but borderline hypothermic (as she has been before). * No leukocytosis. * Will get an opinion from ID.
[2018-07-08] MEDS: Sodium Chloride 0.9% 1,000 ML IV SCH (12:07)
[2018-07-08] MEDS ORDERED: ALPRAZolam 0.25 MG TAB PO PRN (16:01)
[2018-07-08] MEDS ORDERED: Lorazepam 2 MG/ML VIAL SLOW IVP PRN (16:01)
[2018-07-08] MEDS ORDERED: Donepezil HCl 5 MG TAB PO SCH (21:00)
[2018-07-08] MEDS ORDERED: Simvastatin 20 MG TAB PO SCH (21:00)
[2018-07-08] MEDS ORDERED: Famotidine/PF 20 mg/2ml Vial SLOW IVP SCH (21:00)
--- NOTE | 2018-07-08 23:52 | CON ---
DATE OF CONSULTATION: 07/08/2018 REASON FOR CONSULTATION: Resistant Escherichia coli urinary tract infection. HISTORY OF PRESENT ILLNESS: A 77-year-old with history of hypertension, renal insufficiency stage 4, 2 diabetes mellitus, and one previous episode of acute pancreatitis, admitted because of altered mental status. She had previously been treated for bacteriuria with ciprofloxacin, was found to have an ESBL E coli, so therefore she was admitted. She is described as pleasantly confused on admission. Review of systems was negative. Initial findings; temperature 97.7, pulse 60, respirations 18, O2 saturation 95%. The exam was fairly unremarkable except for neurological exam when she was oriented to self and place, but no time orientation. Initial labs; white cell count 9.9, hemoglobin 12, platelets 303 with a normal differential. Sodium 137, creatinine 1.84 and now 1.54. Liver profile normal. Urinalysis with 0 to 3 wbc's. Initial impression was confusional state with underlying dementia and urinary tract infection with resistant pathogen. Thus far in the hospital, she has remained afebrile, elevation in systolic blood pressure. Currently, Ms. Ford is awake. She does not appear in distress, a bit confused, but better than before. No headaches. No respiratory symptoms. No abdominal pain. She did report some dysuria earlier. No diarrhea. No joint symptoms. PAST MEDICAL HISTORY: Type 2 diabetes, coronary artery disease with pacemaker placement, hyperlipidemia, hypertension, obesity, previous urinary tract infections. PAST SURGICAL HISTORY: Knee replacements, lumbar spine laminectomy, pacemaker. SOCIAL HISTORY: Never smoker. Lives at home with family. ALLERGIES: NONE. CURRENT MEDICATIONS: 1. Tylenol. 2. Xanax. 3. Zyrtec. 4. . 5. Pepcid. 6. Neurontin. 7. Glucagon insulin. 8. Lorazepam. 9. Cozaar. 10. Namenda. PHYSICAL EXAMINATION: VITAL SIGNS: Normal except for elevation of systolic blood pressure. SKIN: Normal. The patient is voiding in the toilet. No lymphadenopathy. HEENT: Ocular movements conjugate. Oral cavity with no remarkable findings. NECK: Supple. No jugular vein distention. LUNGS: Symmetric. Clear breath sounds. HEART: S1 and S2. Regular rate. No S3 or S4. ABDOMEN: Soft, not distended or tender. No ascites. No bladder distention. EXTREMITIES: Moves extremities equally. Plantar responses are flexor. NEURO: Awake, oriented, follows commands, could not tell me the date though. DIAGNOSTIC STUDIES: White cell count has been reviewed above. Urine culture, repeat, no growth at 12 hours. Chest x-ray, no acute process. Abdomen ultrasound from February, biliary dilatation. Her liver functions were normal. ASSESSMENT: Type 2 diabetes with coronary artery disease, episode of confusional state, bacteriuria without symptoms. DISCUSSION: The patient did have some dysuria, but I am not sure about the reliability of the report. Even in that case, a short course treatment for cystitis would be sufficient. She has received meropenem since the . I think tomorrow she can be sent home off antimicrobial therapy. Verify postvoid residual. In her case, it would be important to avoid over treating asymptomatic bacteriuria in the future. Job ID: [id number]
[2018-07-09] MEDS: MEROPENEM 1 GM/50 ML 1 GM in Premix Bag 1 BAG IVPB SCH ×2 (03:45→11:47)
[2018-07-09] MEDS: Levothyroxine Sodium 125 MCG TAB PO SCH (05:44)
[2018-07-09] MEDS: Sodium Chloride 0.9% 1,000 ML IV SCH (08:07)
[2018-07-09] MEDS: Losartan 25 MG TAB PO SCH (08:25)
[2018-07-09] MEDS: Gabapentin 300 MG CAP PO SCH ×2 (08:25→15:17)
[2018-07-09] MEDS ORDERED: Trospium 20 MG TAB PO SCH (09:00)
[2018-07-09] MEDS: Cetirizine HCl 10 MG TAB PO SCH (10:21)
--- NOTE | 2018-07-09 11:12 | PQF ---
VADIM CENTENO DAVID R MD [id number] CLINICAL DOCUMENTATION IMPROVEMENT CLARIFICATION FORM: ICD-10 Updated PLEASE DO AN ADDENDUM TO THE PROGRESS NOTE WITH ANY DOCUMENTATION UPDATES OR ADDITIONS AND CARRY THROUGH TO DC SUMMARY. THANK YOU. DATE: 07/09 ATTN: DR. VICENTE CROW Please exercise your independent, professional judgment in responding to the clarification form. Clinical indicators are provided on the bottom of this form for your review. Please check appropriate box(s): [ ] Acute Renal Failure (ARF) / Acute Kidney Injury (PAOLA) [ x ] Acute on Chronic Renal Failure Stage 3 [ ] CKD 3 without ARF/PAOLA [ ] Other diagnosis [ ] Unable to determine In addition, please specify: Present on Admission (POA): [ x ] Yes [ ] No [ ] Unable to determine National Kidney Foundation Guidelines for CKD Staging Stage I Kidney damage with normal or increased GFR GFR > 90 Stage II Kidney damage with mildly decreased GFR GFR 60-89 Stage III Kidney damage with moderately decreased GFR GFR 30-59 Stage IV Kidney damage with severely decreased GFR GFR 16-29 Stage V Kidney failure GFR<15 ESRD End Stage Renal Disease On dialysis For continuity of documentation, please document condition throughout progress notes and discharge summary. Thank You. CLINICAL INDICATORS - SIGNS / SYMPTOMS / LABS H&P 07/07 (KIANA): HX OF PRESENT ILLNESS: ...SHE ALSO HAS ACUTE ON CHRONIC RENAL INSUFFICIENCY. HER RENAL FUNCTION IS WORSE THAN BASELINE & HER CREATININE IS CURRENTLY 1.86 PN 07/08 (TRISTIN): DX/PLAN: 3) ACUTE WORSENING OF STAGE 3 CKD, RESOLVING, ALMOST BASELINE CREATININE NOW BUN: 32 CR: 1.84 GFR: 27 (07/07) 27 1.54 33 (07/08) RISKS: CKD 3 MDR UTI TREATMENT: IVF (NS 07/07 - PRESENT) IV MEROPENEM (07/07 - PRESENT) THANK YOU! Evelin (This form is maintained as a part of the permanent medical record) 2014 [employer]. All Rights Reserved Evelin Crews RN, BSN [email or web address] Office: [phone] [facility]
[2018-07-09 18:04] VITALS: BP 171/69; TEMP 97.3
--- NOTE | 2018-07-10 01:49 | DIS ---
DATE OF ADMISSION: 07/07/2018 DATE OF DISCHARGE: 07/09/2018 DISCHARGE DIAGNOSES: 1. Possible urinary tract infection. 2. Acute encephalopathy. 3. Diabetes. 4. Hypothyroidism. 5. Hypertension. 6. Chronic dementia. HISTORY OF PRESENT ILLNESS: This patient is a 77-year-old female with a history of dementia and recurrent urinary tract infections by history. The patient had recently been seen in the emergency department with decreased mental status and thought to be related to urinary tract infection. She had been given a prescription of p.o. antibiotics and subsequently was discharged to home. The patient apparently had some progressive mental status issues and was subsequently brought back to the emergency department. At that time, culture from the previous visit indicated a multidrug resistant Escherichia coli and the patient was therefore admitted to the hospital and started on IV meropenem. HOSPITAL COURSE: The patient's cultures remain negative. She continued on the meropenem the following day. There was no leukocytosis. The patient remained afebrile. Her mental status appeared to be at baseline. Given the recurrent nature of multidrug resistance and lack of supporting evidence for infection, Dr. Sanders was consulted. He felt the patient was okay to discharge on the day of discharge with no additional antibiotics and recommended a postvoid residual. This was performed and the residual was around 175, which was felt to be borderline but within reasonable normal range for the patient of her age with that. The patient's temperature was 97.5, pulse 60, respirations 18, O2 saturation 100% on room air , BP 160/85. She appeared to be age appropriate. She was in no distress. She was awake, alert and conversant, but slightly confused. HEART: Regular rate and rhythm. LUNGS: Clear. ABDOMEN: Benign. DISPOSITION: The patient is discharged to home. ACTIVITY: As tolerated. DIET: She will remain on a diabetic diet. DISCHARGE MEDICATIONS: She will be on: 1. Levothyroxine. 2. Zocor. 3. Losartan. 4. Acetaminophen. 5. Lantus. 6. Tylenol No. 3. 7. Memantine. 8. Gabapentin. 9. Cetirizine. 10. Benzonatate. 11. Donepezil. FOLLOWUP: She is to follow up with Josr Toth, her PCP, in 7 days and she can return to the hospital should she have any problems prior to that time. Time spent in discharge activities, including face to face time with the patient , was 35 min. Job ID: [id number] MTDD
== END 2018-07-09 18:19 | DRG 690 ==
LOC: ERS 16:06 → T4-B 19:22
PROVIDERS: ADMIT Emergency Medicine; ATTEND Emergency Medicine
DX: N39.0 Urinary tract infection, site not specified (principal); G93.40 Encephalopathy, unspecified; N17.9 Acute kidney failure, unspecified; E03.9 Hypothyroidism, unspecified; I25.10 Atherosclerotic heart disease of native coronary artery without angina pectoris; E78.5 Hyperlipidemia, unspecified; E66.9 Obesity, unspecified; F03.90 Unspecified dementia, unspecified severity, without behavioral disturbance, psychotic disturbance, mood disturbance, and anxiety; I12.9 Hypertensive chronic kidney disease with stage 1 through stage 4 chronic kidney disease, or unspecified chronic kidney disease; E11.22 Type 2 diabetes mellitus with diabetic chronic kidney disease; N18.3 Chronic kidney disease, stage 3 (moderate); B96.20 Unspecified Escherichia coli [E. coli] as the cause of diseases classified elsewhere; Z96.653 Presence of artificial knee joint, bilateral; Z95.0 Presence of cardiac pacemaker; Z98.890 Other specified postprocedural states; Z68.35 Body mass index [BMI] 35.0-35.9, adult
CPT/HCPCS: 36415; 36416; 80048; 80053; 81001; 85025; 87040; 87086; 96374; J2060; J2185; J3490; S0028

== ENCOUNTER 2018-07-13 04:08 | Inpatient (IN) | payer MEDICARE, OTHER ==
[2018-07-13 05:03] LABS: Hemoglobin 13.9 g/dL (12.0-16.0); Mean Corpuscular Hemoglobin 30.8 pg (27.0-31.0); Mean Corpuscular Volume 93.2 fL (78.0-98.0); Mean Platelet Volume 8.3 fL (7.4-10.4); Platelet Count 214 thou/uL (130-400); RBC Distribution Width 11.8 % (11.5-14.5); Red Blood Cell (RBC) Count 4.51 mill/uL (4.20-5.40); White Blood Cell (WBC) Count 14.6 thou/uL (4.8-10.8)
[2018-07-13 05:16] LABS: ALT (SGPT) 17 U/L (8-55); AST (SGOT) 16 U/L (5-34); Albumin 4.4 g/dL (3.4-4.8); Alkaline Phosphatase 84 U/L (40-150); Anion Gap 18 mmol/L (10-20); BUN (Urea Nitrogen) 35 mg/dL (9.8-20.1); Bilirubin, Total 0.6 mg/dL (0.2-1.2); Calc. Creatinine Clearance 0 mL/min (70-130); Calcium 10.9 mg/dL (7.8-10.44); Carbon Dioxide 17 mmol/L (23-31); Chloride 109 mmol/L (98-107); Estimated GFR-MDRD 22; Globulin 3.8 g/dL (2.4-3.5); Glucose 296 mg/dL (83-110); Magnesium 1.9 mg/dL (1.6-2.6); Potassium 4.4 mmol/L (3.5-5.1); Protein, Total 8.2 g/dL (6.0-8.3); Sodium 140 mmol/L (136-145)
[2018-07-13 05:21] LABS: Band 3 % (5-11); Lymphocytes 12 % (21-51); MDiff Complete? YES; Monocytes 3 % (0-10); Neutrophil 82 % (42-75); Platelet Morphology Comment Appears Adequate
[2018-07-13 07:29] LABS: Bilirubin Negative (Negative); Blood, Urine Trace (Negative); Clarity CLOUDY (Clear); Glucose, Urine (Dipstick) 250 mg/dL (Negative); Leukocyte Negative (Negative); Nitrite Negative (Negative); Protein, Urine (Dipstick) > or equal to 300 mg/dL (Neg-Trace); Specific Gravity, Urine 1.024 (1.002-1.036); Urobilinogen 0.2 mg/dL (0.2-1.0); pH, Urine 5.5 (5.0-9.0)
[2018-07-13 07:32] LABS: RBC/HPF 0-3 HPF (0-3)
[2018-07-13 07:36] LABS: Pathc Cast-AUWi Flag 5.03 (0-2.49); Yeast-AUWi Flag 33.8 (0-25.0)
[2018-07-13 07:46] LABS: Bacteria/HPF 1+ HPF (None Seen)
[2018-07-13 07:47] LABS: Yeast-All Forms 1+ HPF (None Seen)
[2018-07-13 07:49] LABS: Other Casts/LPF 0-3 FINELY GRAN LPF (0-3 Hyaline)
[2018-07-13 08:14] LABS: Troponin I 0.017 ng/mL (< 0.028)
[2018-07-13] MEDS ORDERED: HumaLOG 300 UNITS/3 ML VIAL SC PRN ×2 (09:42)
[2018-07-13] MEDS ORDERED: Ondansetron ODT 4 MG TAB PO PRN (09:42)
[2018-07-13] MEDS ORDERED: Dextrose 50% Abboject 50 ML SYRINGE SLOW IVP PRN (09:42)
[2018-07-13] MEDS ORDERED: Dextrose 5% in Water 1,000 ML IV PRN (09:42)
[2018-07-13] MEDS ORDERED: Ondansetron PF 4 MG/2 ML Vial IVP PRN (09:42)
[2018-07-13] MEDS ORDERED: Acetaminophen 325 MG TAB PO PRN (09:42)
[2018-07-13] MEDS ORDERED: hydrALAZINE 20 MG/ML VIAL SLOW IVP PRN (10:09)
[2018-07-13] MEDS ORDERED: hydrALAZINE 20 MG/ML VIAL ONE (10:34)
--- NOTE | 2018-07-13 10:59 | HP ---
PRIMARY CARE PHYSICIAN: Dr. Josr Toth. CHIEF COMPLAINT: Frequent loose stools and worsening confusion. HISTORY OF PRESENT ILLNESS: A 77-year-old female with known history of dementia, hypothyroidism, recurrent UTIs, who was recently discharged from the hospital on July 09 after admission for acute encephalopathy due to UTI. The patient reportedly was noted by daughter to be weak as well as having worsening confusion. The patient was noted to be defecating around the house. She also was noted to have frequent loose stools. The patient was unable to provide any history due to her mental status as well as chronic dementia. The patient and daughter were unable to provide the acuity to tell us when the diarrhea started. There was no history of fever, bloody stool, nausea, vomiting, chest pain, abdominal pain, or leg swelling. The patient was treated with IV fluid in the ER and was subsequently admitted for further evaluation and treatment. PAST MEDICAL HISTORY: 1. Hypothyroidism. 2. Coronary artery disease. 3. Type 2 diabetes. 4. Hyperlipidemia. 5. Hypertension. 6. Obesity. 7. Recurrent UTI. 8. Dementia. PAST SURGICAL HISTORY: 1. Bilateral knee surgery. 2. Carpal tunnel release. 3. Spinal surgery. 4. Pacemaker placement and replacement in 2019. FAMILY HISTORY: This could not be obtained due to the patient's condition. SOCIAL HISTORY: The patient lives with daughter. Denied alcohol, tobacco, or recreational drug use. ALLERGIES: HYDROCODONE, LEVOFLOXACIN, AND MORPHINE, WHICH IS NOTED TO BE ADVERSE REACTION RELATED TO THE PATIENT'S DEMENTIA. CURRENT HOME MEDICATIONS: 1. Tylenol 1000 mg p.o. b.i.d. 2. Acetaminophen with codeine 300/30 mg tablet, one tablet t.i.d. p.r.n. 3. Benzonatate 100 mg t.i.d. p.r.n. for cough. 4. Zyrtec 10 mg p.o. daily. 5. Aricept 5 mg p.o. daily at p.m. 6. Gabapentin 300 mg p.o. t.i.d. 7. Insulin 12 units subcutaneously b.i.d. 8. Levothyroxine 125 mcg p.o. daily. 9. Losartan 100 mg p.o. daily. 10. Memantine 10 mg p.o. b.i.d. 11. Simvastatin 20 mg p.o. daily at bedtime. REVIEW OF SYSTEMS: Pertinent positives and negatives included in the history of present illness. This was greatly limited due to the patient's condition. However, other components were negative. PHYSICAL EXAMINATION: VITAL SIGNS: BP 144/85, pulse 92, respiratory rate 18, SpO2 of 97 on room air, and temperature 97.8. GENERAL: Obese, elderly female, in no obvious distress. Afebrile. Anicteric. Acyanotic. HEENT: Normocephalic and atraumatic. Pupils are reacting to light. Oral mucosa is moist. NECK: Supple, nontender with full range of motion. No obvious masses were appreciated. CARDIOVASCULAR: Regular rhythm and rate with normal heart sounds 1 and 2. RESPIRATORY: Good air entry bilaterally with no obvious crackle or rhonchi or use of accessory muscles. GI: Abdomen is obese, soft, nontender, nondistended with normal bowel sounds. EXTREMITIES: Grossly normal looking, atraumatic, with no obvious edema, erythema, or cyanosis. Distal pulses are palpable. The patient has rather thick legs, but no obvious edema could be discerned. NEUROLOGIC: Conscious and alert. Oriented to person at least. Memory lapses noted. The patient was unable to provide any significant history due to memory lapses. Obeys simple commands. Moves all extremities. DIAGNOSTIC DATA: CBC showed WBC count of 14.6, hemoglobin of 13.9, platelets of 214, MCV of 93. Of note, on July 08, 2018, hemoglobin was 11.1. CMP showed sodium of 140, potassium 4.4, chloride 109, CO2 of 17, anion gap 18, BUN 35, creatinine 2.16, glucose 296, calcium 10.9, total bilirubin 0.6, AST 16, ALT 19, alkaline phosphatase 84, total protein 8.2, albumin 4.4, globulin 3.8. TSH is 2.5. Cardiac enzymes showed troponin less than 0.01 on initial assay with repeat of 0.017. Of note, creatinine was 1.54 on July 08, 2018. Urinalysis today showed yellow cloudy urine with pH of 5.5 and specific gravity of 1.024. Glucose and protein were positive, while blood was trace. Ketones, nitrite, bilirubin, and leukocyte esterase were negative. Microscopy showed 0 to 3 red blood cells, 7 to 10 white blood cells, as well as 7 to 10 squamous epithelial cells. EKG showed normal sinus rhythm with rate of 77. No obvious ischemic changes were noted. ASSESSMENT: 1. Acute encephalopathy: This most likely is due to metabolic from acute kidney injury, metabolic acidosis, and diarrhea illness as well as dehydration. 2. Acute mental status change: Due to acute encephalopathy superimposed on baseline dementia. 3. Frequent loose stools: Etiology is unclear, but Clostridium difficile is a concern, given recent antibiotic therapy for urinary tract infection. 4. Dehydration: Moderate. The patient has clear evidence of hemoconcentration. Hemoglobin was 11.1 on July 08 and is currently 13.9. The patient also has features of acute kidney injury with creatinine going up from 1.54 on July 08 to 2.16. 5. Acute kidney injury superimposed on chronic kidney disease, stage 3: This is most likely due to volume depletion and dehydration. 6. Anion gap metabolic acidosis: Due to alkaline losses in diarrhea illness. 7. Hypercalcemia: Mild. This is most likely due to dehydration. 8. Physical deconditioning. PLAN: 1. We will admit the patient to medical floor. 2. We will start IV fluid therapy with bicarb containing IV fluid. 3. We get C diff assay. 4. We will also continue the patient on insulin therapy. 5. Carb controlled diet will be commenced. 6. Fall precaution as well as PT and OT will be started. We will also restart the patient on dementia medications. 7. Further treatment and recommendation to follow depending on hospital course. 8. Code status: Full code for now. We will discuss with the patient's daughter when she is available. The patient is currently altered and cannot provide any significant history, hence considered incompetent. 9. The patient will be made inpatient, given acute medical problems which unlikely will be resolved in less than 48 hours. Job ID: [id number]
[2018-07-13] MEDS: Amlodipine 5 MG TAB PO SCH ×2 (11:26→11:32)
[2018-07-13] MEDS: Sodium Bicarbonate 75 MEQ in Sodium Chloride 0.45% 1,000 ML IV SCH ×2 (11:32→22:15)
[2018-07-13 12:14] VITALS: BMI 38.9
[2018-07-13 12:18] LABS: Troponin I 0.021 ng/mL (< 0.028)
[2018-07-13] MEDS ORDERED: Prevnar 13-Val Conj/PF 0.5 ML SYRINGE IM ONE (12:45)
[2018-07-13] MEDS: HumaLOG 300 UNITS/3 ML VIAL SC SCH ×2 (13:56→16:31)
[2018-07-13] MEDS: Atorvastatin Calcium 10 MG TAB PO SCH (20:09)
[2018-07-13] MEDS: Donepezil HCl 5 MG TAB PO SCH (20:09)
[2018-07-14] MEDS: Levothyroxine Sodium 125 MCG TAB PO SCH (05:21)
[2018-07-14 06:47] LABS: #Basophils 0.1 thou/uL (0.0-0.2); #Eosinphils 0.4 thou/uL (0.0-0.7); #Lymphocytes 2.6 thou/uL (1.20-3.40); #Monocytes 0.5 thou/uL (0.11-0.59); #Neutrophils 5.2 thou/uL (1.40-6.50); %Basophils 0.6 % (0.0-1.0); %Eosinophils 4.5 % (0.0-10.0); %Lymphocytes 30.1 % (21.0-51.0); %Monocytes 5.6 % (0.0-10.0); %Neutrophils 59.2 % (42.0-75.0); Mean Corpuscular HGB CONC 34.5 g/dL (32.0-36.0); Mean Corpuscular Hemoglobin 31.2 pg (27.0-31.0); Mean Corpuscular Volume 90.4 fL (78.0-98.0); Mean Platelet Volume 7.4 fL (7.4-10.4); Platelet Count 246 thou/uL (130-400); RBC Distribution Width 11.7 % (11.5-14.5); Red Blood Cell (RBC) Count 3.84 mill/uL (4.20-5.40); White Blood Cell (WBC) Count 8.7 thou/uL (4.8-10.8)
[2018-07-14 07:06] LABS: Albumin 3.6 g/dL (3.4-4.8); Anion Gap 14 mmol/L (10-20); BUN (Urea Nitrogen) 26 mg/dL (9.8-20.1); BUN/Creatinine Ratio 18.18; Calc. Creatinine Clearance 53 mL/min (70-130); Calcium 9.1 mg/dL (7.8-10.44); Carbon Dioxide 22 mmol/L (23-31); Chloride 107 mmol/L (98-107); Estimated GFR-MDRD 36; Glucose 138 mg/dL (83-110); Phosphorus 3.6 mg/dL (2.3-4.7); Potassium 3.7 mmol/L (3.5-5.1); Sodium 139 mmol/L (136-145)
[2018-07-14] MEDS: Amlodipine 5 MG TAB PO SCH (08:24)
[2018-07-14] MEDS: Enoxaparin Sodium 40 MG/0.4 ML SYRINGE SC SCH (08:25)
[2018-07-14] MEDS: Loratadine 10 MG TAB PO SCH (08:25)
[2018-07-14] MEDS: HumaLOG 300 UNITS/3 ML VIAL SC SCH ×3 (08:25→17:01)
--- NOTE | 2018-07-14 12:40 | PDOC.PN ---
- Subjective Encounter Start Date: 07/14/18 Encounter Start Time: 12:38 Subjective: alert, no complaints, oriented to person - Objective Resuscitation Status - Order Detail: 07/13/18 09:42 Resuscitation Status Routine Resuscitation Status: FULL: Full Resuscitation MAR Reviewed: Yes Vital Signs & Weight: Vital Signs (12 hours) Temp Pulse Resp BP BP Pulse Ox 07/14/18 08:39 97.5 F L 85 20 171/101 H 95 07/14/18 08:24 85 171/101 H 07/14/18 08:00 95 07/14/18 04:00 97.6 F 69 20 148/78 H 100 Weight Weight 219 lb 15.988 oz I&O: 07/13/18 07/14/18 07/15/18 06:59 06:59 06:59 Intake Total 1979 240 Balance 1979 240 Result Diagrams: 07/14/18 06:11 07/14/18 06:11 Additional Labs: Accuchecks 07/14/18 07/14/18 07/13/18 11:24 04:32 19:26 POC Glucose 128 H 141 H 105 07/13/18 12:57 POC Glucose 186 H Phys Exam - Physical Examination Neck: no JVD Respiratory: clear to auscultation bilateral Cardiovascular: RRR, no significant murmur Gastrointestinal: soft, positive bowel sounds Musculoskeletal: edema present Dx/Plan (1) Metabolic encephalopathy Code(s): G93.41 - METABOLIC ENCEPHALOPATHY Status: Acute (2) Dementia Code(s): F03.90 - UNSPECIFIED DEMENTIA WITHOUT BEHAVIORAL DISTURBANCE Status: Chronic Qualifiers: Alzheimer's disease onset: unspecified onset (3) Metabolic acidosis Code(s): E87.2 - ACIDOSIS Status: Resolved (4) UTI (urinary tract infection) Status: Acute Qualifiers: Comment: klebsiella (5) Anxiety and depression Code(s): F41.9 - ANXIETY DISORDER, UNSPECIFIED; F32.9 - MAJOR DEPRESSIVE DISORDER, SINGLE EPISODE, UNSPECIFIED Status: Chronic (6) CAD (coronary artery disease) Code(s): I25.10 - ATHSCL HEART DISEASE OF [place] CORONARY ARTERY W/O ANG PCTRS Status: Chronic Qualifiers: Coronary Disease-Associated Artery/Lesion type: [place] artery [place] vs. transplanted heart: [place] heart Associated angina: without angina Qualified Code(s): I25.10 - Atherosclerotic heart disease of [place] coronary artery without angina pectoris (7) Diabetes type 2, controlled Code(s): E11.9 - TYPE 2 DIABETES MELLITUS WITHOUT COMPLICATIONS Status: Chronic Qualifiers: Diabetes mellitus snf insulin use: with snf use Diabetes mellitus complication status: with kidney complications (8) Dyslipidemia Code(s): E78.5 - HYPERLIPIDEMIA, UNSPECIFIED Status: Chronic (9) Hypertension Code(s): I10 - ESSENTIAL (PRIMARY) HYPERTENSION Status: Chronic Qualifiers: (10) Hypothyroidism Code(s): E03.9 - HYPOTHYROIDISM, UNSPECIFIED Status: Chronic Qualifiers: - Plan more alert, acodosis resolved, renal fcn improved -: no results from stool or urine C&S -: cont accu/ss -: cont off ARB, serial lab -: reduce IV fluida * .
[2018-07-14] MEDS: Sodium Chloride 0.9% 1,000 ML IV SCH ×2 (13:03→20:42)
[2018-07-14] MEDS: Donepezil HCl 5 MG TAB PO SCH (20:32)
[2018-07-14] MEDS: Atorvastatin Calcium 10 MG TAB PO SCH (20:32)
[2018-07-15] MEDS: Levothyroxine Sodium 125 MCG TAB PO SCH (05:06)
[2018-07-15 05:40] LABS: Anion Gap 14 mmol/L (10-20); BUN (Urea Nitrogen) 24 mg/dL (9.8-20.1); Calc. Creatinine Clearance 55 mL/min (70-130); Calcium 8.9 mg/dL (7.8-10.44); Carbon Dioxide 18 mmol/L (23-31); Chloride 110 mmol/L (98-107); Estimated GFR-MDRD 38; Glucose 142 mg/dL (83-110); Potassium 3.4 mmol/L (3.5-5.1); Sodium 139 mmol/L (136-145)
[2018-07-15] MEDS: Amlodipine 5 MG TAB PO SCH (08:20)
[2018-07-15] MEDS: Loratadine 10 MG TAB PO SCH (08:20)
[2018-07-15] MEDS: Enoxaparin Sodium 40 MG/0.4 ML SYRINGE SC SCH (08:21)
[2018-07-15] MEDS: HumaLOG 300 UNITS/3 ML VIAL SC SCH ×3 (08:23→17:14)
--- NOTE | 2018-07-15 10:38 | PDOC.PN ---
- Subjective Encounter Start Date: 07/15/18 Encounter Start Time: 10:36 Subjective: feels well, no nausea, diarrhea - Objective Resuscitation Status - Order Detail: 07/13/18 09:42 Resuscitation Status Routine Resuscitation Status: FULL: Full Resuscitation MAR Reviewed: Yes Vital Signs & Weight: Vital Signs (12 hours) Temp Pulse Resp BP BP Pulse Ox 07/15/18 08:20 68 189/77 H 07/15/18 08:14 97.8 F 68 20 189/77 H 95 07/15/18 08:07 95 07/15/18 05:00 98.6 F 18 170/71 H 94 L Weight Weight 219 lb 15.988 oz I&O: 07/14/18 07/15/18 07/16/18 06:59 06:59 06:59 Intake Total 1979 1959 240 Balance 1979 1959 240 Result Diagrams: 07/14/18 06:11 07/15/18 05:11 Additional Labs: Accuchecks 07/15/18 07/14/18 07/14/18 05:50 19:43 11:24 POC Glucose 138 H 135 H 128 H Phys Exam - Physical Examination Neck: no JVD Respiratory: clear to auscultation bilateral Cardiovascular: RRR, no significant murmur Gastrointestinal: soft, positive bowel sounds Musculoskeletal: no edema Dx/Plan (1) Metabolic encephalopathy Code(s): G93.41 - METABOLIC ENCEPHALOPATHY Status: Resolved (2) Dementia Code(s): F03.90 - UNSPECIFIED DEMENTIA WITHOUT BEHAVIORAL DISTURBANCE Status: Chronic Qualifiers: Alzheimer's disease onset: unspecified onset (3) UTI (urinary tract infection) Status: Acute Qualifiers: Comment: E coli (4) Anxiety and depression Code(s): F41.9 - ANXIETY DISORDER, UNSPECIFIED; F32.9 - MAJOR DEPRESSIVE DISORDER, SINGLE EPISODE, UNSPECIFIED Status: Chronic (5) CAD (coronary artery disease) Code(s): I25.10 - ATHSCL HEART DISEASE OF [place] CORONARY ARTERY W/O ANG PCTRS Status: Chronic Qualifiers: Coronary Disease-Associated Artery/Lesion type: [place] artery [place] vs. transplanted heart: [place] heart Associated angina: without angina Qualified Code(s): I25.10 - Atherosclerotic heart disease of [place] coronary artery without angina pectoris (6) Diabetes type 2, controlled Code(s): E11.9 - TYPE 2 DIABETES MELLITUS WITHOUT COMPLICATIONS Status: Chronic Qualifiers: Diabetes mellitus termite control servicer insulin use: with termite control servicer use Diabetes mellitus complication status: with kidney complications Chronic kidney disease stage: stage 3 (moderate) (7) Dyslipidemia Code(s): E78.5 - HYPERLIPIDEMIA, UNSPECIFIED Status: Chronic (8) Hypertension Code(s): I10 - ESSENTIAL (PRIMARY) HYPERTENSION Status: Chronic Qualifiers: (9) Hypothyroidism Code(s): E03.9 - HYPOTHYROIDISM, UNSPECIFIED Status: Chronic Qualifiers: Hypothyroidism type: unspecified - Plan omnicef po for UTI -: BP uncontrolled , add metoprolol -: renal fcn at baseline -: placement * .
[2018-07-15] MEDS: Cefdinir 300 MG CAP PO SCH (20:15)
[2018-07-15] MEDS: Donepezil HCl 5 MG TAB PO SCH (20:15)
[2018-07-15] MEDS: Atorvastatin Calcium 10 MG TAB PO SCH (20:15)
[2018-07-15] MEDS: Metoprolol Tartrate 25 MG TAB PO SCH (20:16)
[2018-07-16 05:19] LABS: Anion Gap 13 mmol/L (10-20); BUN (Urea Nitrogen) 27 mg/dL (9.8-20.1); Calc. Creatinine Clearance 51 mL/min (70-130); Calcium 9.3 mg/dL (7.8-10.44); Carbon Dioxide 20 mmol/L (23-31); Chloride 110 mmol/L (98-107); Estimated GFR-MDRD 34; Glucose 145 mg/dL (83-110); Sodium 139 mmol/L (136-145)
[2018-07-16] MEDS: Levothyroxine Sodium 125 MCG TAB PO SCH (05:53)
[2018-07-16] MEDS: Metoprolol Tartrate 25 MG TAB PO SCH (08:02)
[2018-07-16] MEDS: Loratadine 10 MG TAB PO SCH (08:02)
[2018-07-16] MEDS: Cefdinir 300 MG CAP PO SCH (08:02)
[2018-07-16] MEDS: Enoxaparin Sodium 40 MG/0.4 ML SYRINGE SC SCH (08:03)
[2018-07-16] MEDS: Amlodipine 5 MG TAB PO SCH (08:03)
[2018-07-16] MEDS: HumaLOG 300 UNITS/3 ML VIAL SC SCH ×2 (08:07→12:51)
[2018-07-16 10:41] LABS: HIV (1/2) Antibody/Antigen Non-Reactive (NonReactive); HIV 1/2 INDEX 0.15 S/CO (<1.00); Hep C IgG Ab Non-Reactive (NonReactive); Hep C Index 0.07 S/CO (0-0.79)
--- NOTE | 2018-07-16 11:07 | PDOC.PN ---
- Subjective Encounter Start Date: 07/16/18 Encounter Start Time: 11:20 -: old records requested/rev Patient seen and examined. No new complaints. No overnight events - Objective Resuscitation Status - Order Detail: 07/13/18 09:42 Resuscitation Status Routine Resuscitation Status: FULL: Full Resuscitation MAR Reviewed: Yes Vital Signs & Weight: Vital Signs (12 hours) Temp Pulse Resp BP BP BP Pulse Ox 07/16/18 10:02 98.1 F 60 20 135/79 96 07/16/18 08:03 60 152/74 H 07/16/18 08:01 98 F 60 20 152/74 H 99 07/16/18 07:59 99 07/16/18 05:01 97.4 F L 60 20 166/85 H 95 07/16/18 00:30 97.5 F L 60 16 147/78 H 94 L Weight Weight 219 lb 15.988 oz I&O: 07/15/18 07/16/18 07/17/18 06:59 06:59 06:59 Intake Total 1959 2059 240 Balance 1959 2059 240 Result Diagrams: 07/14/18 06:11 07/16/18 04:07 Additional Labs: Accuchecks 07/16/18 07/15/18 07/15/18 04:49 20:18 16:44 POC Glucose 140 H 201 H 103 07/15/18 11:56 POC Glucose 105 Phys Exam - Physical Examination Constitutional: NAD HEENT: PERRLA, moist MMs, sclera anicteric Neck: no JVD, supple Respiratory: no wheezing, no rales, no rhonchi Cardiovascular: RRR, no significant murmur, no rub Gastrointestinal: soft, non-tender, no distention, positive bowel sounds Musculoskeletal: no edema, pulses present Neurological: non-focal, normal sensation, moves all 4 limbs Lymphatic: no nodes Psychiatric: normal affect Skin: no rash, normal turgor Dx/Plan (1) Acute worsening of stage 3 chronic kidney disease Code(s): N18.3 - CHRONIC KIDNEY DISEASE, STAGE 3 (MODERATE) Status: Acute Comment: resolving, almost baseline creatinine now (2) UTI (urinary tract infection) Status: Acute Qualifiers: Comment: E coli (3) Anemia, normocytic normochromic Code(s): D64.9 - ANEMIA, UNSPECIFIED Status: Chronic (4) Anxiety and depression Code(s): F41.9 - ANXIETY DISORDER, UNSPECIFIED; F32.9 - MAJOR DEPRESSIVE DISORDER, SINGLE EPISODE, UNSPECIFIED Status: Chronic (5) CAD (coronary artery disease) Code(s): I25.10 - ATHSCL HEART DISEASE OF [place] CORONARY ARTERY W/O ANG PCTRS Status: Chronic Qualifiers: Coronary Disease-Associated Artery/Lesion type: [place] artery [place] vs. transplanted heart: [place] heart Associated angina: without angina Qualified Code(s): I25.10 - Atherosclerotic heart disease of [place] coronary artery without angina pectoris (6) Dementia Code(s): F03.90 - UNSPECIFIED DEMENTIA WITHOUT BEHAVIORAL DISTURBANCE Status: Chronic Qualifiers: Alzheimer's disease onset: unspecified onset (7) Diabetes type 2, controlled Code(s): E11.9 - TYPE 2 DIABETES MELLITUS WITHOUT COMPLICATIONS Status: Chronic Qualifiers: Diabetes mellitus penitentiary insulin use: with penitentiary use Diabetes mellitus complication status: with kidney complications Chronic kidney disease stage: stage 3 (moderate) (8) Dyslipidemia Code(s): E78.5 - HYPERLIPIDEMIA, UNSPECIFIED Status: Chronic (9) Hypertension Code(s): I10 - ESSENTIAL (PRIMARY) HYPERTENSION Status: Chronic Qualifiers: (10) Hypothyroidism Code(s): E03.9 - HYPOTHYROIDISM, UNSPECIFIED Status: Chronic Qualifiers: Hypothyroidism type: unspecified Qualified Code(s): E03.9 - Hypothyroidism , unspecified (11) Obesity (BMI 30-39.9) Code(s): E66.9 - OBESITY, UNSPECIFIED Status: Chronic (12) Metabolic encephalopathy Code(s): G93.41 - METABOLIC ENCEPHALOPATHY Status: Resolved - Plan cont current plan of care, continue antibiotics * macrobid on discharge * medication reviewed as below * symptomatic treatment * see discharge summertiff. Review of Systems - Review of Systems ENT: negative: Ear Pain, Ear Discharge, Nose Pain, Nose Discharge, Nose Congestion, Mouth Pain, Mouth Swelling, Throat Pain, Throat Swelling, Other Respiratory: negative: Cough, Dry, Shortness of Breath, Hemoptysis, SOB with Excertion, Pleuritic Pain, Sputum, Wheezing Cardiovascular: negative: chest pain, palpitations, orthopnea, paroxysmal nocturnal dyspnea, edema, light headedness, other Gastrointestinal: negative: Nausea, Vomiting, Abdominal Pain, Diarrhea, Constipation, Melena, Hematochezia, Other Genitourinary: negative: Dysuria, Frequency, Incontinence, Hematuria, Retention , Other Musculoskeletal: negative: Neck Pain, Shoulder Pain, Arm Pain, Back Pain, Hand Pain, Leg Pain, Foot Pain, Other - Medications/Allergies Allergies/Adverse Reactions: Allergies Allergy/AdvReac Type Severity Reaction Status Date / Time hydrocodone Allergy lose memory Verified 07/15/18 10:41 levofloxacin [From Levaquin] Allergy Verified 07/01/16 20:16 morphine Allergy Verified 07/02/16 18:01 Medications: Current Medications Acetaminophen (Tylenol) 650 mg PO Q4H PRN PRN Reason: Headache/Fever/Mild Pain (1-3) Last Admin: 07/13/18 16:31 Dose: 650 mg Amlodipine Besylate (Norvasc) 5 mg PO DAILY [facility] Last Admin: 07/16/18 08:03 Dose: 5 mg Atorvastatin Calcium (Lipitor) 10 mg PO HS [facility] Last Admin: 07/15/18 20:15 Dose: 10 mg Cefdinir (Omnicef) 300 mg PO BID [facility] Last Admin: 07/16/18 08:02 Dose: 300 mg Dextrose/Water (Dextrose 50%) 25 gm SLOW IVP PRN PRN PRN Reason: Hypoglycemia Donepezil HCl (Aricept) 5 mg PO QPM [facility] Last Admin: 07/15/18 20:15 Dose: 5 mg Enoxaparin Sodium (Lovenox) 40 mg SC 0900 [facility] Last Admin: 07/16/18 08:03 Dose: 40 mg Glucagon (Glucagon) 1 mg IM PRN PRN PRN Reason: Hypoglycemia Hydralazine HCl (Apresoline) 10 mg SLOW IVP Q4H PRN PRN Reason: SBP > 180 and/or DBP > 100 Dextrose/Water (D5w) 1,000 mls @ 0 mls/hr IV .Q0M PRN PRN Reason: Hypoglycemia Insulin Human Lispro (Humalog) 3 units SC 0800 [facility] Last Admin: 07/16/18 08:07 Dose: 3 unit Insulin Human Lispro (Humalog) 3 units SC 1200 [facility] Last Admin: 07/15/18 12:35 Dose: 3 unit Insulin Human Lispro (Humalog) 3 units SC 1700 [facility] Last Admin: 07/15/18 17:14 Dose: 3 unit Insulin Human Lispro (Humalog) 0 units SC .MILD SLIDING SCALE PRN PRN Reason: Mild Correctional Scale Insulin Human Lispro (Humalog) 0 units SC .BEDTIME SLIDING SC PRN PRN Reason: Bedtime Correctional Scale Levothyroxine Sodium (Synthroid) 125 mcg PO 0600 [facility] Last Admin: 07/16/18 05:53 Dose: 125 mcg Loratadine (Claritin) 10 mg PO DAILY [facility] Last Admin: 07/16/18 08:02 Dose: 10 mg Memantine (Namenda) 10 mg PO BID [facility] Last Admin: 07/16/18 08:02 Dose: 10 mg Metoprolol Tartrate (Lopressor) 25 mg PO BID [facility] Last Admin: 07/16/18 08:02 Dose: 25 mg Ondansetron HCl (Zofran Odt) 4 mg PO Q6H PRN PRN Reason: Nausea/Vomiting Ondansetron HCl (Zofran) 4 mg IVP Q6H PRN PRN Reason: Nausea/Vomiting Quetiapine Fumarate (Seroquel) 12.5 mg PO HS [facility] Last Admin: 07/15/18 20:16 Dose: 12.5 mg Sodium Chloride (Flush - Normal Saline) 10 ml IVF Q12HR [facility] Last Admin: 07/16/18 08:05 Dose: 10 ml Sodium Chloride (Flush - Normal Saline) 10 ml IVF PRN PRN PRN Reason: Saline Flush
--- NOTE | 2018-07-16 11:21 | DIS ---
DATE OF ADMISSION: 07/13/2018 DATE OF DISCHARGE: 07/16/2018 PRIMARY CARE PHYSICIAN: Dr. Josr Toth. DISCHARGE DISPOSITION: [facility]. PRIMARY DISCHARGE DIAGNOSES: [id number] kidney failure; baseline chronic kidney disease, stage 3; urinary tract infection; acute metabolic encephalopathy , resolved. SECONDARY DISCHARGE DIAGNOSES: Obesity with BMI 33; hypertension; hypothyroidism; dyslipidemia; diabetes, type 2; dementia; coronary artery disease; anxiety and depression; normocytic normochromic anemia; and chronic kidney disease, stage 3. PRIMARY PROCEDURE/OPERATION: None. RADIOLOGICAL INVESTIGATION: None. SIGNIFICANT LABORATORY DATA: WBC 8.7, hemoglobin 12.0, platelet 246. Sodium 139, potassium 4.0, BUN 27, creatinine 1.49, calcium 9.3. LFT, normal. HIV and hepatitis, negative. Urine culture grew E. coli. DISCHARGE MEDICATIONS: 1. Cetirizine 10 mg p.o. daily. 2. Aricept 5 mg p.o. daily. 3. Gabapentin 300 mg p.o. t.i.d. 4. Lantus 12 units subcutaneously b.i.d. 5. Synthroid 125 mcg p.o. daily. 6. Losartan 100 mg p.o. daily. 7. Namenda 10 mg b.i.d. 8. Zocor 20 mg p.o. at bedtime. 9. Omnicef 300 mg p.o. b.i.d. 10. Florastor 250 mg p.o. daily for 7 days. CONTRAINDICATION: None. CODE STATUS: Full code. INPATIENT CASER: None. ALLERGIES: 1. HYDROCODONE. 2. LEVOFLOXACIN. 3. MORPHINE. DISCHARGE PLAN: Posthospital, the patient is discharged to [facility]. Subsequently, the patient will follow up with primary care physician. HOSPITAL COURSE: A 77-year-old female, who was admitted by Dr. Chamberlain. Please see his H and P for further details. The patient was admitted on July 13, 2018. At that time, the patient was having worsening confusion and loose stool. She was found with urinary tract infection. She was also found with acute kidney injury. She was dehydrated. She was given IV fluid. Her mental status improved back to normal and baseline level. Hepatitis C and HIV were negative. The patient was treated with antibiotic therapy with Rocephin and on discharge changed to Omnicef therapy. The patient's diarrhea resolved, and her renal function improved to normal, to baseline level. Her urine culture is growing E. coli. The patient has already responded to Omnicef therapy, and that is why we continued Omnicef therapy. The patient was having physical weakness, and that is why family member interested in sending her to snf home, and that is why with help of correctional case records supervisor, we arranged snf home upon discharge. Paperwork for discharge done. Discharge medication reconciliation done. Overall, the patient is medically stable for discharge today. Plan of care discussed with the patient. Total time spent on discharge day 31 minutes Job ID: [id number] MTDD
--- NOTE | 2018-07-16 11:32 | DIS ---
DATE OF ADMISSION: 07/13/2018 DATE OF DISCHARGE: 07/16/2018 ADDENDUM: This patient was discharged initially when I dictated. At that time, she was given Omnicef 300 mg p.o. b.i.d., but today, we got culture result after dictation. Though the patient has responded to Omnicef, we decided to change to appropriate antibiotic therapy upon discharge with Macrobid for 7 days. At this point, the patient is doing clinically much better. I have seen and examined the patient at bedside today. PHYSICAL EXAMINATION: VITAL SIGNS: Currently, temperature 98.1, pulse 60, respiratory rate 20, saturation 96% on room air, blood pressure 135/79, and weight 219 pounds. GENERAL: The patient is currently alert, awake, no obvious acute distress. HEENT: Head, normocephalic and atraumatic. Eyes; pupils round and reactive to light. Extraocular muscles intact. ENT, oropharynx within normal limits. Moist mucous membranes. No oral lesion. No pharyngeal erythema. No exudate. NECK: Supple. No JVD. No thyromegaly. No carotid bruit. LUNGS: Clear to auscultation without any rhonchi. CARDIAC: S1 and S2, regular without any murmur. ABDOMEN: Soft and benign. EXTREMITIES: No edema. NEUROLOGIC: Nonfocal examination. Paper work for discharge done. Discharge medication reconciliation done. The patient is medically stable for discharge today. time spent total 31 minutes Job ID: [id number] MTDD
[2018-07-16 11:48] LABS: HBSAg Index 0.28 S/CO (0-0.99); Hep B Surf Ag NonReactive S/CO (NonReactive)
[2018-07-16 14:15] VITALS: BP 168/78; TEMP 97.6
== END 2018-07-16 14:25 | DRG 682 ==
LOC: ERS 04:08 → ERHOLD 06:52 → OBSVTOIN 09:42 → T4-B 11:08
PROVIDERS: ADMIT Internal Medicine; ATTEND Internal Medicine
DX: N17.9 Acute kidney failure, unspecified (principal); G93.41 Metabolic encephalopathy; E87.2 Acidosis; N39.0 Urinary tract infection, site not specified; E11.22 Type 2 diabetes mellitus with diabetic chronic kidney disease; I12.9 Hypertensive chronic kidney disease with stage 1 through stage 4 chronic kidney disease, or unspecified chronic kidney disease; N18.3 Chronic kidney disease, stage 3 (moderate); E86.0 Dehydration; E78.5 Hyperlipidemia, unspecified; B18.2 Chronic viral hepatitis C; E66.9 Obesity, unspecified; E03.9 Hypothyroidism, unspecified; E83.52 Hypercalcemia; F03.90 Unspecified dementia, unspecified severity, without behavioral disturbance, psychotic disturbance, mood disturbance, and anxiety; I25.10 Atherosclerotic heart disease of native coronary artery without angina pectoris; F41.9 Anxiety disorder, unspecified; F32.9 Major depressive disorder, single episode, unspecified; B96.20 Unspecified Escherichia coli [E. coli] as the cause of diseases classified elsewhere; Z79.4 Long term (current) use of insulin; Z95.0 Presence of cardiac pacemaker; Z79.899 Other long term (current) drug therapy; Z68.33 Body mass index [BMI] 33.0-33.9, adult; Z88.1 Allergy status to other antibiotic agents; Z88.5 Allergy status to narcotic agent; Z88.8 Allergy status to other drugs, medicaments and biological substances
CPT/HCPCS: 36415; 36416; 80048; 80053; 80069; 81003; 81015; 83735; 84443; 84484; 85025; 86803; 87077; 87086; 87186; 87340; 87389; 93005; J0360; J1650

== ENCOUNTER 2018-08-07 16:47 | Inpatient (IN) | payer MEDICARE, OTHER ==
--- NOTE | 2018-08-07 17:15 | RAD ---
Exam: Chest one view HISTORY:Altered mental status Comparison: 06/27/2018 FINDINGS: Cardiac silhouette:Enlarged. Stable right-sided defibrillator. Pulmonary vessels: Mildly prominent Costophrenic angles: Clear LUNGS: No masses or consolidation. Chronic changes of the lung parenchyma are noted. Pneumothorax: None Osseous abnormalities: None IMPRESSION: 1. Cardiomegaly, with pulmonary vascular prominence. Correlate for volume overload.
[2018-08-07] MEDS ORDERED: Piperacillin/Tazobactam 3.375 GM VIAL ONE ×2 (17:45→18:54)
[2018-08-07 18:03] LABS: #Eosinphils 0.1 thou/uL (0.0-0.7); #Lymphocytes 0.7 thou/uL (1.20-3.40); #Monocytes 0.7 thou/uL (0.11-0.59); #Neutrophils 9.8 thou/uL (1.40-6.50); %Basophils 0.4 % (0.0-1.0); %Eosinophils 0.7 % (0.0-10.0); %Lymphocytes 6.3 % (21.0-51.0); %Monocytes 6.6 % (0.0-10.0); %Neutrophils 86.1 % (42.0-75.0); Hemoglobin 11.9 g/dL (12.0-16.0); Mean Corpuscular HGB CONC 33.3 g/dL (32.0-36.0); Mean Corpuscular Hemoglobin 31.3 pg (27.0-31.0); Mean Platelet Volume 7.6 fL (7.4-10.4); Platelet Count 237 thou/uL (130-400); RBC Distribution Width 12.2 % (11.5-14.5); White Blood Cell (WBC) Count 11.3 thou/uL (4.8-10.8)
[2018-08-07 18:24] LABS: ALT (SGPT) 22 U/L (8-55); AST (SGOT) 20 U/L (5-34); Albumin 3.8 g/dL (3.4-4.8); Alkaline Phosphatase 98 U/L (40-150); Anion Gap 14 mmol/L (10-20); BUN (Urea Nitrogen) 27 mg/dL (9.8-20.1); Bilirubin, Total 0.8 mg/dL (0.2-1.2); Calc. Creatinine Clearance 0 mL/min (70-130); Calcium 9.7 mg/dL (7.8-10.44); Carbon Dioxide 24 mmol/L (23-31); Chloride 107 mmol/L (98-107); Estimated GFR-MDRD 31; Globulin 3.4 g/dL (2.4-3.5); Glucose 157 mg/dL (83-110); Magnesium 1.6 mg/dL (1.6-2.6); Potassium 4.5 mmol/L (3.5-5.1); Protein, Total 7.2 g/dL (6.0-8.3); Sodium 140 mmol/L (136-145)
[2018-08-07 20:16] LABS: Bilirubin Negative (Negative); Blood, Urine Moderate (Negative); Clarity CLEAR (Clear); Glucose, Urine (Dipstick) Negative (Negative); Leukocyte Negative (Negative); Nitrite Negative (Negative); Protein, Urine (Dipstick) 300 mg/dL (Neg-Trace); Urobilinogen 0.2 mg/dL (0.2-1.0)
[2018-08-07 20:19] LABS: Bacteria/HPF Rare-Few HPF (None Seen); Hyaline Casts/LPF 0-3 HYALINE CAST LPF (0-3 Hyaline); RBC/HPF 0-3 HPF (0-3); Squamous Epithelial 0-3 HPF (0-3); WBC/HPF 0-3 HPF (0-3)
[2018-08-07] MEDS ORDERED: cefTRIAXone\\ROCEPHIN 1 GM VIAL ONE (21:28)
[2018-08-07] MEDS ORDERED: Lidocaine 1% PF 5 ML VIAL ONE (21:29)
--- NOTE | 2018-08-07 22:21 | CT ---
CHEST CT WITHOUT CONTRAST ABDOMEN CT WITHOUT CONTRAST PELVIC CT WITHOUT CONTRAST 08/07/18 HISTORY: Evaluate for infection. Urinary tract infection. COMPARISON: Abdomen and pelvic CT 02/22/17. FINDINGS: CHEST CT: Limited evaluation of the mediastinum due to lack of IV contrast. No mass, lymphadenopathy, or hemat carlos. Heart is enlarged. Small amount of pericardial fluid. The visualized aorta has a normal caliber. No periaortic fat stranding. Dependent atelectatic changes in the lung bases. No suspicious masses or consolidation. No pneumothor ax or pleural effusion. Trachea and central bronchi are patent. ABDOMEN CT: Limited evaluation of the solid organs due to lack of IV contrast. Right hepatic lobe is enlarged. Gr ossly, no abnormality in the solid organs. Gallbladder is surgically absent. Symmetric attenuation of the kidneys. Bilaterally, no obstructive u ropathy. Punctate nonobstructing 1 mm calculus in the right intrarenal collecting system. No gastrohepatic, retrocrural or periportal lymphadenopathy. No mesenteric mass, lymphadenopathy, free air or free fluid. Limited evaluation of the alimentary canal by the lack of oral contrast. There are a few slightly pro minent proximal small bowel loops which are nonspecific. Distal small bowel loops are decompressed. I leocecal junction is normal. There is a normal caliber appendix emanating from the cecal apex. Note, the cecal apex is somewhat medial in location. Scattered fecal material in a nondistended, nondilated colon. Diverticulosis, without evidence of diverticulitis. There is a grossly prominent common bile duct likely due to reservoir effect from previous cholecystectomy. CT PELVIS: Uterus and adnexal structures are unremarkable. Urinary bladder is unremarkable. No pelvic mass, lymp hadenopathy, free air or free fluid. There is mild stranding of the left inguinal fat with mild hypertrophy of the associated lymph nodes. Correlate for focal infection. No lytic or blastic lesions within the osseous structures. IMPRESSION: 1. No acute abnormality in the chest, abdomen or pelvis. 2. Nonobstructing punctate calculus in the right intrarenal collecting system. Bilaterally, no o bstructive uropathy. 3. Slightly prominent proximal small bowel loop. Correlate for early obstructive process versus a focal ileus. Normal caliber appendix. 4. Diverticulosis, without evidence of diverticulitis. 5. Inflammatory changes in the left inguinal region. POS: PPP
[2018-08-07 23:56] VITALS: BMI 36.8
[2018-08-08] MEDS ORDERED: Sodium Chloride 0.45% 1,000 ML IV SCH (00:15)
[2018-08-08] MEDS ORDERED: Senokot S 8.6-50 MG TAB PO PRN (01:42)
[2018-08-08] MEDS ORDERED: Acetaminophen 650 MG Suppository PR PRN (01:42)
[2018-08-08] MEDS: Sodium Chloride 0.9% 1,000 ML IV SCH ×2 (02:25→16:48)
[2018-08-08 02:26] LABS: Lactic Acid 1.2 mmol/L (0.5-2.2)
[2018-08-08] MEDS ORDERED: Dextrose 5% in Water 1,000 ML IV PRN (02:31)
[2018-08-08] MEDS ORDERED: Dextrose 50% Abboject 50 ML SYRINGE SLOW IVP PRN (02:31)
--- NOTE | 2018-08-08 02:48 | HP ---
CHIEF COMPLAINT: Abdominal pain. HISTORY OF PRESENT ILLNESS: Esther Ford is a 77-year-old woman who presents with abdominal pain, and per ED notes altered mental status. The patient was brought here from [facility] with a mention that she had altered mental status since this morning with no improvement. The patient recently treated for UTI. Difficulty obtaining history from the patient as she is not able to describe the pain. She states her discomfort is all over. At this time, she states her main complaint is feeling very cold and she is visibly shivering. Temperature checked by the nurse and is normal at 98.5. She had a temp of 101.5 in the ER. The room does feel very cold and additional blankets will be placed on her. Again, difficulty obtaining history from the patient. She is insisting that she is cold and not answering many questions. She did deny having any chest pain or shortness of breath. She also denies any vomiting. Patient started on IV Abx in ER for empiric coverage, as source unknown. PAST MEDICAL HISTORY: 1. Hepatitis C. 2. Hypothyroidism 3. Pacemaker 4. Diabetes 5. Hypertension 6. Obesity PAST SURGICAL HISTORY: 1. Bilateral knee replacement 2. Carpal tunnel surgery 3. Lumbar spine surgery 4. Pacemaker replaced 06/2018 SOCIAL HISTORY: Lives in [place]. No alcohol use, tobacco use or drug use. ALLERGIES: No known drug allergies. CURRENT MEDICATIONS: 1. Memantine. 2. Gabapentin. 3. Simvastatin. 4. Tylenol #3. 5. Norvasc. 6. Lactobacillus acidophilus. 7. Losartan. 8. Levothyroxine. LABORATORY STUDIES: Laboratories done in the emergency department were notable for white blood count of 11.3, hemoglobin 11.9, hematocrit 35.7. Her BUN slightly elevated from her baseline at 27 and creatinine at 1.62, GFR 31. Glucose was 157. LFTs unremarkable. Lipase not done. Urinalysis is notable for protein and blood with rare to few bacteria, negative nitrites, and negative leukocyte esterase. IMAGING DATA: CT imaging was done of the chest, abdomen, and pelvis showing no acute abnormality in the chest, abdomen, or pelvis. There was a nonobstructing punctate calculus in the right intrarenal collecting system, bilaterally no obstructive uropathy, slightly prominent proximal small bowel loop, to be correlated for early obstructive process versus focal ileus. Normal caliber appendix. Diverticulosis without evidence of diverticulitis. Inflammatory change in the left inguinal region. IMPRESSION/PLAN: Ms. Ford is being referred for management of the followin. Sepsis, unknown source. Patient recently treated for UTI. Started on IV Abx in ED. CXR clear. UA negative. Continue to monitor. 2. Abdominal pain. Diffuse, unable to localize. CT A/P showed possible ileus vs. early signs of obstruction. KUB in the morning. Unclear when last bowel movement was. No n/v. LFTs normal. Lipase added on as well as lactic acid. Consider general surgery consult if persists. 3. Hypertension. Resume home medications and monitor BP. 4. Diabetes Mellitus. Insulin sliding scale, monitor glucose. 5. CAD. Resume home medications. 6. GI Prophylaxis. 7. DVT Prophylaxis. Mechanical SCDs. 8. FULL CODE STATUS. Unable to verify surrogate decision maker. Patients case discussed with Dr. Mcclain who agrees with plan as above. Job ID: [id number] MTDD
[2018-08-08] MEDS: Acetaminophen 325 MG TAB PO PRN ×2 (04:26→12:32)
[2018-08-08] MEDS: Piperacillin/Tazobactam 3.375 GM in Sodium Chloride 0.9% 100 ML IVPB SCH ×4 (05:32→22:38)
[2018-08-08] MEDS: Levothyroxine Sodium 125 MCG TAB PO SCH (05:33)
[2018-08-08] MEDS: HumaLOG 300 UNITS/3 ML VIAL SC PRN ×4 (05:43→20:15)
[2018-08-08 07:04] LABS: #Lymphocytes 1.1 thou/uL (1.20-3.40); #Monocytes 0.9 thou/uL (0.11-0.59); #Neutrophils 10.5 thou/uL (1.40-6.50); %Basophils 0.1 % (0.0-1.0); %Eosinophils 0.1 % (0.0-10.0); %Lymphocytes 8.7 % (21.0-51.0); %Monocytes 7.2 % (0.0-10.0); Hemoglobin 10.8 g/dL (12.0-16.0); Mean Corpuscular HGB CONC 33.4 g/dL (32.0-36.0); Mean Corpuscular Hemoglobin 31.3 pg (27.0-31.0); Mean Corpuscular Volume 93.8 fL (78.0-98.0); Mean Platelet Volume 7.6 fL (7.4-10.4); Platelet Count 224 thou/uL (130-400); RBC Distribution Width 12.3 % (11.5-14.5); Red Blood Cell (RBC) Count 3.43 mill/uL (4.20-5.40); White Blood Cell (WBC) Count 12.5 thou/uL (4.8-10.8)
[2018-08-08 07:21] LABS: Anion Gap 12 mmol/L (10-20); BUN (Urea Nitrogen) 25 mg/dL (9.8-20.1); Calc. Creatinine Clearance 47 mL/min (70-130); Calcium 8.7 mg/dL (7.8-10.44); Carbon Dioxide 23 mmol/L (23-31); Chloride 107 mmol/L (98-107); Estimated GFR-MDRD 31; Glucose 194 mg/dL (83-110); Sodium 138 mmol/L (136-145)
--- NOTE | 2018-08-08 09:16 | RAD ---
Exam: Abdomen one view HISTORY: Evaluate for obstruction versus ileus. FINDINGS: Nonspecific bowel gas pattern. No evidence of bowel distention or dilatation. Air and scatt ered fecal material in a nondistended, nondilated colon. No pneumoperitoneum supine projection. Surgical clip in the left hemipelvis and right upper quadrant IMPRESSION: Nonspecific bowel gas pattern.
[2018-08-08] MEDS: Losartan 25 MG TAB PO SCH (09:48)
[2018-08-08] MEDS: cefTRIAXone\\ROCEPHIN 1 GM in Sodium Chloride 0.9% 100 ML IVPB SCH ×2 (09:49→20:56)
[2018-08-08] MEDS: Amlodipine 5 MG TAB PO SCH (09:49)
[2018-08-08] MEDS: Famotidine/PF 20 mg/2ml Vial SLOW IVP SCH (09:49)
--- NOTE | 2018-08-08 14:01 | PDOC.PN ---
- Subjective Encounter Start Date: 08/08/18 Encounter Start Time: 01:00 No significant abdominal pain. Complains of pain around the left side of her rastafari, pre-auricular area and occipital insertion. - Objective Resuscitation Status - Order Detail: 08/08/18 01:42 Resuscitation Status Routine Co-Sign Provider: Resuscitation Status: FULL: Full Resuscitation Vital Signs & Weight: Vital Signs (12 hours) Temp Pulse Resp BP BP Pulse Ox 08/08/18 09:49 60 150/73 H 08/08/18 08:00 98.3 F 60 16 150/73 H 150/73 H 92 L 08/08/18 05:42 172/70 H 08/08/18 04:26 100 F H 08/08/18 04:00 98.1 F 69 18 180/77 H 96 Weight Weight 221 lb 12.8 oz I&O: 08/07/18 08/08/18 08/09/18 06:59 06:59 06:59 Intake Total 1200 Output Total 350 Balance 850 Result Diagrams: 08/08/18 06:23 08/08/18 06:23 Additional Labs: Accuchecks 08/08/18 08/08/18 11:08 04:15 POC Glucose 219 H 217 H Phys Exam - Physical Examination Constitutional: NAD Appears to be more awake and alert than yesterday's records indicate TTP in the right temporalis area. Temporal artery does not feel abnormally firm to palp. Respiratory: no wheezing, no rales, no rhonchi Cardiovascular: RRR, no significant murmur, no rub Gastrointestinal: soft, non-tender, no distention, positive bowel sounds Musculoskeletal: no edema TTP at right post skull base a muscle insertion site. Neurological: non-focal Dx/Plan (1) Sepsis Code(s): A41.9 - SEPSIS, UNSPECIFIED ORGANISM Status: Acute (2) Abdominal pain Code(s): R10.9 - UNSPECIFIED ABDOMINAL PAIN Status: Acute (3) CAD (coronary artery disease) Code(s): I25.10 - ATHSCL HEART DISEASE OF [place] CORONARY ARTERY W/O ANG PCTRS Status: Chronic Qualifiers: Coronary Disease-Associated Artery/Lesion type: [place] artery [place] vs. transplanted heart: [place] heart Associated angina: without angina Qualified Code(s): I25.10 - Atherosclerotic heart disease of [place] coronary artery without angina pectoris (4) Dementia Code(s): F03.90 - UNSPECIFIED DEMENTIA WITHOUT BEHAVIORAL DISTURBANCE Status: Chronic Qualifiers: Alzheimer's disease onset: unspecified onset (5) Diabetes type 2, controlled Code(s): E11.9 - TYPE 2 DIABETES MELLITUS WITHOUT COMPLICATIONS Status: Chronic Qualifiers: Diabetes mellitus jail insulin use: with binder selector use Diabetes mellitus complication status: with kidney complications Chronic kidney disease stage: stage 3 (moderate) (6) Dyslipidemia Code(s): E78.5 - HYPERLIPIDEMIA, UNSPECIFIED Status: Chronic (7) Hypertension Code(s): I10 - ESSENTIAL (PRIMARY) HYPERTENSION Status: Chronic Qualifiers: (8) Hypothyroidism Code(s): E03.9 - HYPOTHYROIDISM, UNSPECIFIED Status: Chronic Qualifiers: Hypothyroidism type: unspecified Qualified Code(s): E03.9 - Hypothyroidism , unspecified Comment: Continue synthroid (9) Right facial pain Code(s): R51 - HEADACHE Status: Acute - Plan * No specific source of infection identified. * Abdominal pain appears to have resolved. * KUB normal this morning. * Continue abx and follow up cx at 48 hours. Currently only growing contam. * Right facial and bridgette pain. Check ESR to look for temporal arteritis. * Tyl did not help. Allergic to Morphine and hydrocodone. Trying tramadol.
[2018-08-08] MEDS: traMADol HCl 50 MG TAB PO PRN ×2 (14:12→20:32)
--- NOTE | 2018-08-08 15:09 | PDOC.EVN ---
Event Note - Event Note Event Note: ESR 70. Will add some prednisone. Monitor clinically. May need to consider temporal artery biopsy.
[2018-08-08] MEDS ORDERED: predniSONE 20 MG TAB PO SCH (15:15)
[2018-08-08] MEDS: Atorvastatin Calcium 10 MG TAB PO SCH (20:10)
[2018-08-08] MEDS ORDERED: Prevnar 13-Val Conj/PF 0.5 ML SYRINGE IM ONE (21:00)
[2018-08-09] MEDS: Piperacillin/Tazobactam 3.375 GM in Sodium Chloride 0.9% 100 ML IVPB SCH ×5 (04:31→23:52)
[2018-08-09] MEDS: Sodium Chloride 0.9% 1,000 ML IV SCH ×4 (04:33→23:52)
[2018-08-09] MEDS: HumaLOG 300 UNITS/3 ML VIAL SC PRN ×4 (05:05→21:17)
[2018-08-09] MEDS: Levothyroxine Sodium 125 MCG TAB PO SCH (05:05)
[2018-08-09] MEDS: Amlodipine 5 MG TAB PO SCH (08:27)
[2018-08-09] MEDS: Losartan 25 MG TAB PO SCH (08:27)
[2018-08-09] MEDS: predniSONE 20 MG TAB PO SCH (08:27)
[2018-08-09] MEDS: Famotidine/PF 20 mg/2ml Vial SLOW IVP SCH (08:30)
[2018-08-09 08:58] LABS: Lactic Acid 3.4 mmol/L (0.5-2.2)
[2018-08-09 09:03] LABS: ALT (SGPT) 20 U/L (8-55); AST (SGOT) 21 U/L (5-34); Albumin 3.3 g/dL (3.4-4.8); Alkaline Phosphatase 81 U/L (40-150); Bilirubin, Direct 0.2 mg/dL (0.1-0.3); Bilirubin, Total 0.3 mg/dL (0.2-1.2); Protein, Total 6.4 g/dL (6.0-8.3)
[2018-08-09] MEDS: cefTRIAXone\\ROCEPHIN 1 GM in Sodium Chloride 0.9% 100 ML IVPB SCH ×2 (10:05→21:09)
--- NOTE | 2018-08-09 10:34 | PDOC.PN ---
- Subjective Encounter Start Date: 08/09/18 Encounter Start Time: 10:32 Patient seen and examined, no new issues or complaints. Says hear headache is better, abdominal pain remains - Objective Resuscitation Status - Order Detail: 08/08/18 01:42 Resuscitation Status Routine Co-Sign Provider: Resuscitation Status: FULL: Full Resuscitation Vital Signs & Weight: Vital Signs (12 hours) Temp Pulse Resp BP BP Pulse Ox 08/09/18 08:27 60 144/76 H 08/09/18 08:25 144/76 H 08/09/18 08:00 97.3 F L 60 18 170/81 H 99 08/09/18 04:52 97.7 F 66 18 112/64 96 08/09/18 01:00 98.0 F 65 18 164/70 H 94 L Weight Weight 221 lb 12.8 oz I&O: 08/08/18 08/09/18 08/10/18 06:59 06:59 06:59 Intake Total 1200 2700 Output Total 350 2250 Balance 850 450 Result Diagrams: 08/08/18 06:23 08/08/18 06:23 Additional Labs: Accuchecks 08/09/18 08/08/18 08/08/18 04:52 20:04 16:12 POC Glucose 228 H 246 H 185 H 08/08/18 11:08 POC Glucose 219 H Phys Exam - Physical Examination Constitutional: NAD HEENT: PERRLA, moist MMs Neck: no nodes, no JVD, supple Respiratory: no wheezing, no rales, no rhonchi Cardiovascular: RRR, no significant murmur, no rub Gastrointestinal: soft, non-tender, no distention, positive bowel sounds Musculoskeletal: no edema, pulses present Dx/Plan (1) Abdominal pain Code(s): R10.9 - UNSPECIFIED ABDOMINAL PAIN Status: Acute (2) Right facial pain Code(s): R51 - HEADACHE Status: Acute (3) Acute worsening of stage 3 chronic kidney disease Code(s): N18.3 - CHRONIC KIDNEY DISEASE, STAGE 3 (MODERATE) Status: Acute Comment: resolving, almost baseline creatinine now (4) UTI (urinary tract infection) Status: Acute Qualifiers: Comment: E coli (5) Anxiety and depression Code(s): F41.9 - ANXIETY DISORDER, UNSPECIFIED; F32.9 - MAJOR DEPRESSIVE DISORDER, SINGLE EPISODE, UNSPECIFIED Status: Chronic (6) CAD (coronary artery disease) Code(s): I25.10 - ATHSCL HEART DISEASE OF [place] CORONARY ARTERY W/O ANG PCTRS Status: Chronic Qualifiers: Coronary Disease-Associated Artery/Lesion type: [place] artery [place] vs. transplanted heart: [place] heart Associated angina: without angina Qualified Code(s): I25.10 - Atherosclerotic heart disease of [place] coronary artery without angina pectoris (7) Diabetes type 2, controlled Code(s): E11.9 - TYPE 2 DIABETES MELLITUS WITHOUT COMPLICATIONS Status: Chronic Qualifiers: Diabetes mellitus ball ender insulin use: with ball ender use Diabetes mellitus complication status: with kidney complications Chronic kidney disease stage: stage 3 (moderate) (8) Dyslipidemia Code(s): E78.5 - HYPERLIPIDEMIA, UNSPECIFIED Status: Chronic (9) Hypertension Code(s): I10 - ESSENTIAL (PRIMARY) HYPERTENSION Status: Chronic Qualifiers: (10) Hypothyroidism Code(s): E03.9 - HYPOTHYROIDISM, UNSPECIFIED Status: Chronic Qualifiers: Hypothyroidism type: unspecified Qualified Code(s): E03.9 - Hypothyroidism , unspecified Comment: Continue synthroid (11) Obesity (BMI 30-39.9) Code(s): E66.9 - OBESITY, UNSPECIFIED Status: Chronic - Plan * I'm not sure if patient truly has temporal arteritis or the ESR is due to inflammation from infection * cont abx for now * sypmtoms improving, will continue prednisone for 24 hours more, reduce in dose for now * ISS for sugars * change to inpatient for abdominal pain * cont current plan of care otherwise
--- NOTE | 2018-08-09 11:22 | CT ---
Exam: Head CT without contrast HISTORY: Headache. Confusion. COMPARISON: 06/27/2018 FINDINGS: Hemorrhage: No intraparenchymal hemorrhage or extra-axial hematoma. Brain parenchyma: Cortical bar-white matter differentiation is preserved. No mass effect or midline shift. Basilar cisterns are patent.Stable white matter hypodensities due to chronic small vessel ischemic change. Ventricular system: Ventricles and sulci are patent and symmetric. Calvarium: Intact. Sinuses and mastoid air cells: Adequate aeration. IMPRESSION: No acute intracranial process.
[2018-08-09] MEDS: Acetaminophen 325 MG TAB PO PRN (14:59)
[2018-08-09] MEDS: Lorazepam 2 MG/ML VIAL SLOW IVP PRN (15:16)
[2018-08-09] MEDS: Atorvastatin Calcium 10 MG TAB PO SCH (21:11)
[2018-08-10] MEDS: Levothyroxine Sodium 125 MCG TAB PO SCH (05:51)
[2018-08-10] MEDS: Piperacillin/Tazobactam 3.375 GM in Sodium Chloride 0.9% 100 ML IVPB SCH ×4 (05:52→23:51)
[2018-08-10 06:59] LABS: #Eosinphils 0.1 thou/uL (0.0-0.7); #Lymphocytes 1.8 thou/uL (1.20-3.40); #Monocytes 0.5 thou/uL (0.11-0.59); #Neutrophils 4.8 thou/uL (1.40-6.50); %Basophils 0.4 % (0.0-1.0); %Eosinophils 1.2 % (0.0-10.0); %Monocytes 7.3 % (0.0-10.0); %Neutrophils 66.2 % (42.0-75.0); Hemoglobin 11.7 g/dL (12.0-16.0); Mean Corpuscular HGB CONC 33.4 g/dL (32.0-36.0); Mean Corpuscular Hemoglobin 31.5 pg (27.0-31.0); Mean Corpuscular Volume 94.2 fL (78.0-98.0); Mean Platelet Volume 7.5 fL (7.4-10.4); Platelet Count 243 thou/uL (130-400); Red Blood Cell (RBC) Count 3.71 mill/uL (4.20-5.40); White Blood Cell (WBC) Count 7.2 thou/uL (4.8-10.8)
[2018-08-10] MEDS: Losartan 25 MG TAB PO SCH (07:17)
[2018-08-10] MEDS: Lorazepam 2 MG/ML VIAL SLOW IVP PRN ×2 (07:18→14:24)
[2018-08-10] MEDS: traMADol HCl 50 MG TAB PO PRN (07:18)
[2018-08-10] MEDS: predniSONE 20 MG TAB PO SCH (07:19)
[2018-08-10] MEDS: Amlodipine 5 MG TAB PO SCH (07:19)
[2018-08-10] MEDS: cefTRIAXone\\ROCEPHIN 1 GM in Sodium Chloride 0.9% 100 ML IVPB SCH ×3 (07:20→21:02)
[2018-08-10] MEDS: Famotidine/PF 20 mg/2ml Vial SLOW IVP SCH (07:20)
[2018-08-10 07:22] LABS: Anion Gap 16 mmol/L (10-20); BUN (Urea Nitrogen) 28 mg/dL (9.8-20.1); Calc. Creatinine Clearance 47 mL/min (70-130); Calcium 9.8 mg/dL (7.8-10.44); Carbon Dioxide 20 mmol/L (23-31); Chloride 109 mmol/L (98-107); Estimated GFR-MDRD 31; Glucose 144 mg/dL (83-110); Potassium 4.1 mmol/L (3.5-5.1); Sodium 141 mmol/L (136-145)
--- NOTE | 2018-08-10 11:17 | PDOC.PN ---
- Subjective Encounter Start Date: 08/10/18 Encounter Start Time: 11:16 Patient seen and examined, no new issues. no family at bedside, all questions answered. - Objective Resuscitation Status - Order Detail: 08/08/18 01:42 Resuscitation Status Routine Co-Sign Provider: Resuscitation Status: FULL: Full Resuscitation Vital Signs & Weight: Vital Signs (12 hours) Temp Pulse Resp BP Pulse Ox 08/10/18 08:00 94 L 08/10/18 07:30 97.7 F 60 20 178/84 H 94 L 08/10/18 07:19 60 Weight Admit Weight 221 lb 12.8 oz Weight 221 lb 12.8 oz I&O: 08/09/18 08/10/18 08/11/18 06:59 06:59 06:59 Intake Total 2700 2540 Output Total 2250 2650 Balance 450 -110 Result Diagrams: 08/10/18 06:37 08/10/18 06:37 Additional Labs: Accuchecks 08/10/18 08/09/18 08/09/18 04:27 19:48 17:03 POC Glucose 145 H 272 H 355 H 08/09/18 12:16 POC Glucose 232 H Phys Exam - Physical Examination Constitutional: NAD HEENT: PERRLA, moist MMs, sclera anicteric Neck: no nodes, no JVD Respiratory: no wheezing, no rales, no rhonchi Cardiovascular: RRR, no significant murmur, no rub Gastrointestinal: soft, non-tender, no distention, positive bowel sounds Musculoskeletal: no edema, pulses present Dx/Plan (1) Abdominal pain Code(s): R10.9 - UNSPECIFIED ABDOMINAL PAIN Status: Acute (2) Right facial pain Code(s): R51 - HEADACHE Status: Acute (3) Acute worsening of stage 3 chronic kidney disease Code(s): N18.3 - CHRONIC KIDNEY DISEASE, STAGE 3 (MODERATE) Status: Acute Comment: resolving, almost baseline creatinine now (4) UTI (urinary tract infection) Status: Acute Qualifiers: Comment: E coli (5) Anxiety and depression Code(s): F41.9 - ANXIETY DISORDER, UNSPECIFIED; F32.9 - MAJOR DEPRESSIVE DISORDER, SINGLE EPISODE, UNSPECIFIED Status: Chronic (6) CAD (coronary artery disease) Code(s): I25.10 - ATHSCL HEART DISEASE OF [place] CORONARY ARTERY W/O ANG PCTRS Status: Chronic Qualifiers: Coronary Disease-Associated Artery/Lesion type: [place] artery [place] vs. transplanted heart: [place] heart Associated angina: without angina Qualified Code(s): I25.10 - Atherosclerotic heart disease of [place] coronary artery without angina pectoris (7) Diabetes type 2, controlled Code(s): E11.9 - TYPE 2 DIABETES MELLITUS WITHOUT COMPLICATIONS Status: Chronic Qualifiers: Diabetes mellitus hands assembler insulin use: with hands assembler use Diabetes mellitus complication status: with kidney complications Chronic kidney disease stage: stage 3 (moderate) (8) Dyslipidemia Code(s): E78.5 - HYPERLIPIDEMIA, UNSPECIFIED Status: Chronic (9) Hypertension Code(s): I10 - ESSENTIAL (PRIMARY) HYPERTENSION Status: Chronic Qualifiers: (10) Hypothyroidism Code(s): E03.9 - HYPOTHYROIDISM, UNSPECIFIED Status: Chronic Qualifiers: Hypothyroidism type: unspecified Qualified Code(s): E03.9 - Hypothyroidism , unspecified Comment: Continue synthroid (11) Obesity (BMI 30-39.9) Code(s): E66.9 - OBESITY, UNSPECIFIED Status: Chronic - Plan * +blood culture and urine cultures * patient on IV rocephin * consult ID * repeat blood cultures * labs in AM * case and plan d/w patient at length, she understood and agreed with this plan.
[2018-08-10] MEDS: HumaLOG 300 UNITS/3 ML VIAL SC PRN ×2 (16:37→21:05)
[2018-08-10] MEDS: Sodium Chloride 0.9% 1,000 ML IV SCH (20:56)
[2018-08-10] MEDS: Atorvastatin Calcium 10 MG TAB PO SCH (20:57)
--- NOTE | 2018-08-10 22:26 | CON ---
DATE OF CONSULTATION: 08/10/2018 REASON FOR CONSULTATION: Bacteremia. HISTORY OF PRESENT ILLNESS: A 77-year-old who has a history of cardiomyopathy with prior pacemaker placement, type 2 diabetes, who in 2016 moved to be with family from [place]. She then developed confusional state, had a colonoscopy, which showed diverticulosis. One year later in 2016, had nausea, vomiting, and diarrhea, mostly liquid with diffuse abdominal pain, was discharged with diagnosis of gastroenteritis, possibly infectious. Then in February 2017, she was admitted with upper abdominal pain across the epigastrium with nausea. She also complained of recurring pain in the right pelvic paravertebral hip region. Impression then was possibility of choledocholithiasis with transient obstruction. In June 2018, she was admitted with altered mental status with an ESBL E. coli in the urine. She did have some dysuria at that time, but no other evidence of invasive infection, specifically no obstruction of the urinary tract or stones. She received short course of antimicrobial therapy, which was then discontinued. Now, she again is with altered mental status and fever, transported by EMS from her fdc. Initial findings included BP 180/100, pulse 116, respirations 24, temperature was 100.3 and then 101, O2 saturation was 90 on room air and 100 on 2 L oxygen nasal cannula. The lung and heart exam was normal. The abdomen showed tenderness more prominent in the right upper quadrant and right lower quadrant as well. LABORATORY DATA: Initial lab findings, white cell count of 11.3, hemoglobin 11.9, platelets 237 and creatinine was 1.62, which is about the same as previously noted. Glucose was 217 and magnesium 1.6. Bilirubin and transaminases normal as well as normal alkaline phosphatase. Albumin 3.8, urinalysis with 0-3 WBCs, 1/2 sets of blood cultures with group B Streptococcus. IMAGING: Thus far there is a chest, abdomen and pelvis CT from just a few days ago and this demonstrated enlarged heart, small amount of pericardial fluid, atelectasis in lung bases. Solid organs in the abdomen with limited evaluation due to lack of IV contrast. The right hepatic lobe was felt enlarged. The gallbladder was absent. No obstructive uropathy noted. There was limited evaluation of the alimentary canal due to lack of oral contrast, still prominent small bowel loops, nonspecific, colon was okay, not distended. Currently, Ms. Ford is a bit sleepy. She is arousable. She establishes eye contact, but is unable to provide any meaningful information. She is disoriented, thought she was in [place]. Review of systems therefore is not reliable. PAST MEDICAL HISTORY: Includes type 2 diabetes, coronary artery disease, pacemaker placement, hypertension, obesity, urinary tract infections, pancreatitis and cognitive dysfunction. Also listed is hepatitis C and I am not sure how accurate this report is since her serology shows a negative hepatitis C antibody from July 2018. PAST SURGICAL HISTORY: Bilateral knee replacements, lumbar spine laminectomy and surgery of the left first toe metatarsal. She had a pacemaker placement. SOCIAL HISTORY: Never smoker. She is currently living in a fdc. ALLERGIES: NONE. FAMILY HISTORY: Noncontributory. MEDICATION LIST: 1. Tylenol. 2. Norvasc. 3. Lipitor. 4. Rocephin. 5. Dextrose. 6. Pepcid. 7. Glucagon. Insulin. 1. Synthroid. 2. Ativan. 3. Cozaar. 4. Namenda. 5. Zosyn. 6. Prednisone. 7. Senokot. 8. Ultram. PHYSICAL EXAMINATION: VITAL SIGNS: Temperature max 100, currently 98.2, blood pressure 170/84, pulse 60, respirations 20, O2 saturation 94, room air. SKIN: Exam shows the left first toe, which on arrival to the hospital had a small area of ulceration at the tip with erythema around the MPJ skin site and swelling of the first toe, which has moderate swelling. No other skin lesions, no lymphadenopathy. HEENT: Ocular movements conjugate. Oral cavity with still few teeth in place. No lesions in the oral mucosa. NECK: Supple. No jugular vein distention or carotid bruits. LUNGS : Symmetric. Clear breath sounds. S1, S2. Regular rate. ABDOMEN: With some tenderness in the right side. Soft, not distended. No ascites. No bladder distention. The patient has an indwelling Liang catheter. EXTREMITIES: Pulses are 1+ in popliteal and dorsalis pedis. She has tenderness on palpation of the left first toe. NEUROLOGIC: She is able to move extremities, but does not follow commands very well. She is drowsy, will arouse on stimulation, but is just disoriented to name, place, and time. LABORATORY DATA: Urinalysis was normal. White cell count is 11.3 and now 7.2, hemoglobin 11.9, platelets 237, 86% neutrophils. Sodium 140, creatinine 1.62, calcium 9.7, bilirubin was normal. Transaminases, alkaline phosphatase normal, albumin 3.8. IMAGING: Brain CT with no acute intracranial process. Abdomen x-ray, nonspecific bowel gas pattern and a CT abdomen and pelvis findings as discussed above. Chest x-ray with cardiomegaly and pulmonary vascular prominence. ASSESSMENT: 1. History of hepatitis C although the serology available in the record is negative, so I am not sure how accurate this report is. History of this type 2 diabetes. 2. Hypertension. 3. Cognitive dysfunction, probably vascular dementia. 4. Cardiomyopathy and now admitted altered with mental status, fever, and group B streptococcus bacteremia and the abnormalities noted in the left foot. DISCUSSION: Differential diagnosis includes left toe cellulitis versus osteomyelitis and paronychia. We will check starting with a plain film of the left foot and then followed by a bone scan. Continue Rocephin. I do not believe that the urinary tract is involved in this process and the group B streptococcus isolated from urine is probably spillover from the bacteremia. Other sites are not apparent at this point in time, although the CT abdomen and pelvis was done without contrast and has limited sensitivity. Another site that we were not able to inquire properly is the spine and we will have to reassess that once her mental status improves somewhat. Job ID: [id number]
[2018-08-11] MEDS: Piperacillin/Tazobactam 3.375 GM in Sodium Chloride 0.9% 100 ML IVPB SCH ×4 (05:44→23:16)
[2018-08-11] MEDS: Levothyroxine Sodium 125 MCG TAB PO SCH (05:44)
[2018-08-11] MEDS ORDERED: Diabetic Tussin 200 MG/10 ML UDCUP PO PRN (07:42)
[2018-08-11] MEDS ORDERED: Ondansetron ODT 4 MG TAB PO PRN (07:42)
[2018-08-11] MEDS ORDERED: Loperamide HCl 2 MG CAP PO PRN (07:42)
[2018-08-11] MEDS ORDERED: Artificial Tears 18 DROP/0.9 ML EA EYE PRN (07:42)
[2018-08-11] MEDS ORDERED: Ondansetron PF 4 MG/2 ML Vial IVP PRN (07:42)
[2018-08-11] MEDS ORDERED: Loratadine 10 MG TAB PO PRN (07:42)
[2018-08-11] MEDS ORDERED: Sodium Chloride 0.65% Nasal 44 ML BOT EA NARE PRN (07:42)
[2018-08-11] MEDS ORDERED: hydrALAZINE 20 MG/ML VIAL SLOW IVP PRN (07:42)
[2018-08-11] MEDS ORDERED: Zolpidem Tartrate 5 MG TAB PO PRN (07:42)
[2018-08-11] MEDS ORDERED: Cepastat Lozenges 1 LOZ PO PRN (07:42)
[2018-08-11] MEDS: Losartan 25 MG TAB PO SCH (08:14)
[2018-08-11] MEDS: Gabapentin 300 MG CAP PO SCH ×3 (08:15→19:56)
[2018-08-11] MEDS: Amlodipine 5 MG TAB PO SCH (08:15)
[2018-08-11] MEDS: predniSONE 20 MG TAB PO SCH (08:15)
[2018-08-11] MEDS: Famotidine/PF 20 mg/2ml Vial SLOW IVP SCH (08:15)
[2018-08-11] MEDS: Lactinex Tablet PO SCH (08:18)
[2018-08-11] MEDS: traMADol HCl 50 MG TAB PO PRN ×2 (09:20→19:56)
[2018-08-11] MEDS: Lorazepam 2 MG/ML VIAL SLOW IVP PRN ×2 (09:21→16:04)
[2018-08-11] MEDS: cefTRIAXone\\ROCEPHIN 1 GM in Sodium Chloride 0.9% 100 ML IVPB SCH ×2 (09:21→20:00)
--- NOTE | 2018-08-11 11:11 | PDOC.PN ---
- Subjective Encounter Start Date: 08/11/18 Encounter Start Time: 09:45 -: old records requested/rev Patient seen and examined. No new complaints. No overnight events - Objective Resuscitation Status - Order Detail: 08/08/18 01:42 Resuscitation Status Routine Co-Sign Provider: Resuscitation Status: FULL: Full Resuscitation MAR Reviewed: Yes Vital Signs & Weight: Vital Signs (12 hours) Temp Pulse Resp BP Pulse Ox 08/11/18 08:15 60 08/11/18 07:20 97.4 F L 60 20 162/74 H 97 Weight Admit Weight 221 lb 12.8 oz Weight 221 lb 12.8 oz I&O: 08/10/18 08/11/18 08/12/18 06:59 06:59 06:59 Intake Total 2540 1580 240 Output Total 2650 800 Balance -110 780 240 Result Diagrams: 08/10/18 06:37 08/10/18 06:37 Additional Labs: Accuchecks 08/11/18 08/10/18 08/10/18 04:13 21:03 16:23 POC Glucose 141 H 326 H 343 H 08/10/18 10:39 POC Glucose 183 H Phys Exam - Physical Examination Constitutional: NAD HEENT: PERRLA, moist MMs, sclera anicteric Neck: no JVD, supple Respiratory: no wheezing, no rales, no rhonchi Cardiovascular: RRR, no significant murmur, no rub Gastrointestinal: soft, non-tender, no distention, positive bowel sounds Musculoskeletal: no edema, pulses present Neurological: non-focal, normal sensation Psychiatric: normal affect, A&O x 3 Skin: no rash, normal turgor Dx/Plan (1) Acute worsening of stage 3 chronic kidney disease Code(s): N18.3 - CHRONIC KIDNEY DISEASE, STAGE 3 (MODERATE) Status: Acute Comment: resolving, almost baseline creatinine now (2) Bacteremia due to group B Streptococcus Code(s): R78.81 - BACTEREMIA Status: Acute (3) Sepsis Code(s): A41.9 - SEPSIS, UNSPECIFIED ORGANISM Status: Acute (4) UTI (urinary tract infection) Status: Acute Qualifiers: Comment: E coli (5) Anemia, normocytic normochromic Code(s): D64.9 - ANEMIA, UNSPECIFIED Status: Chronic (6) Anxiety and depression Code(s): F41.9 - ANXIETY DISORDER, UNSPECIFIED; F32.9 - MAJOR DEPRESSIVE DISORDER, SINGLE EPISODE, UNSPECIFIED Status: Chronic (7) CAD (coronary artery disease) Code(s): I25.10 - ATHSCL HEART DISEASE OF [place] CORONARY ARTERY W/O ANG PCTRS Status: Chronic Qualifiers: Coronary Disease-Associated Artery/Lesion type: [place] artery [place] vs. transplanted heart: [place] heart Associated angina: without angina Qualified Code(s): I25.10 - Atherosclerotic heart disease of [place] coronary artery without angina pectoris (8) Dementia Code(s): F03.90 - UNSPECIFIED DEMENTIA WITHOUT BEHAVIORAL DISTURBANCE Status: Chronic Qualifiers: Alzheimer's disease onset: unspecified onset (9) Diabetes type 2, controlled Code(s): E11.9 - TYPE 2 DIABETES MELLITUS WITHOUT COMPLICATIONS Status: Chronic Qualifiers: Diabetes mellitus mechanical design engineer facilities insulin use: with senior care use Diabetes mellitus complication status: with kidney complications Chronic kidney disease stage: stage 3 (moderate) (10) Dyslipidemia Code(s): E78.5 - HYPERLIPIDEMIA, UNSPECIFIED Status: Chronic (11) Hypertension Code(s): I10 - ESSENTIAL (PRIMARY) HYPERTENSION Status: Chronic Qualifiers: (12) Hypothyroidism Code(s): E03.9 - HYPOTHYROIDISM, UNSPECIFIED Status: Chronic Qualifiers: Hypothyroidism type: unspecified Qualified Code(s): E03.9 - Hypothyroidism , unspecified Comment: Continue synthroid (13) Obesity (BMI 30-39.9) Code(s): E66.9 - OBESITY, UNSPECIFIED Status: Chronic - Plan cont current plan of care, continue antibiotics, PT/OT, social secretary * continue rocephin * medication reviewed as below * symptomatic treatment * will go to [facility] on discharge * continue PT. Review of Systems - Review of Systems ENT: negative: Ear Pain, Ear Discharge, Nose Pain, Nose Discharge, Nose Congestion, Mouth Pain, Mouth Swelling, Throat Pain, Throat Swelling, Other Respiratory: negative: Cough, Dry, Shortness of Breath, Hemoptysis, SOB with Excertion, Pleuritic Pain, Sputum, Wheezing Cardiovascular: negative: chest pain, palpitations, orthopnea, paroxysmal nocturnal dyspnea, edema, light headedness, other Gastrointestinal: negative: Nausea, Vomiting, Abdominal Pain, Diarrhea, Constipation, Melena, Hematochezia, Other Genitourinary: negative: Dysuria, Frequency, Incontinence, Hematuria, Retention , Other Musculoskeletal: negative: Neck Pain, Shoulder Pain, Arm Pain, Back Pain, Hand Pain, Leg Pain, Foot Pain, Other Skin: negative: Rash, Lesions, [place], Bruising, Other - Medications/Allergies Allergies/Adverse Reactions: Allergies Allergy/AdvReac Type Severity Reaction Status Date / Time hydrocodone Allergy lose memory Verified 07/15/18 10:41 levofloxacin [From Levaquin] Allergy Verified 07/01/16 20:16 morphine Allergy Verified 07/02/16 18:01 Medications: Current Medications Acetaminophen (Tylenol) 650 mg PO Q4H PRN PRN Reason: Headache/Fever/Mild Pain (1-3) Last Admin: 08/09/18 14:59 Dose: 650 mg Acetaminophen (Tylenol) 650 mg [place] Q4H PRN PRN Reason: Headache/Fever/Mild Pain (1-3) Acidophilus (Floranex) 1 tab PO DAILY [facility] Last Admin: 08/11/18 08:18 Dose: 1 tab Amlodipine Besylate (Norvasc) 5 mg PO DAILY [facility] Last Admin: 08/11/18 08:15 Dose: 5 mg Artificial Tears (Tears Naturale) 2 drop EA EYE PRN PRN PRN Reason: Dry Eyes Atorvastatin Calcium (Lipitor) 10 mg PO HS [facility] Last Admin: 08/10/18 20:57 Dose: 10 mg Dextrose/Water (Dextrose 50%) 25 gm SLOW IVP PRN PRN PRN Reason: Hypoglycemia Famotidine (Pepcid) 20 mg SLOW IVP DAILY [facility] Last Admin: 08/11/18 08:15 Dose: 20 mg Gabapentin (Neurontin) 300 mg PO TID [facility] Last Admin: 08/11/18 08:15 Dose: 300 mg Glucagon (Glucagon) 1 mg IM PRN PRN PRN Reason: Hypoglycemia Guaifenesin (Robitussin Sf) 200 mg PO Q4H PRN PRN Reason: Cough Hydralazine HCl (Apresoline) 10 mg SLOW IVP Q4H PRN PRN Reason: SBP > 180 and HR < 70 Ceftriaxone Sodium 1 gm/ (Sodium Chloride) 100 mls @ 200 mls/hr IVPB Q12HR [facility] Last Admin: 08/11/18 09:21 Dose: 100 mls Dextrose/Water (D5w) 1,000 mls @ 0 mls/hr IV .Q0M PRN PRN Reason: Hypoglycemia Piperacillin Sod/Tazobactam (Sod 3.375 gm/ Sodium Chloride) 100 mls @ 200 mls/ hr IVPB 0500,1100,1700,2300 [facility] Last Admin: 08/11/18 09:21 Dose: 100 mls Insulin Human Lispro (Humalog) 0 units SC .MILD SLIDING SCALE PRN PRN Reason: Mild Correctional Scale Last Admin: 08/10/18 16:37 Dose: 5 unit Insulin Human Lispro (Humalog) 0 units SC .BEDTIME SLIDING SC PRN PRN Reason: Bedtime Correctional Scale Last Admin: 08/10/18 21:05 Dose: 4 unit Levothyroxine Sodium (Synthroid) 125 mcg PO 0600 [facility] Last Admin: 08/11/18 05:44 Dose: 125 mcg Loperamide HCl (Imodium) 2 mg PO PRN PRN PRN Reason: Diarrhea/Loose Stools Last Admin: 08/11/18 08:18 Dose: 2 mg Loratadine (Claritin) 10 mg PO DAILYPRN PRN PRN Reason: Sinus Symptoms Lorazepam (Ativan) 2 mg SLOW IVP Q6H PRN PRN Reason: .ANXIETY/AGITATION Last Admin: 08/11/18 09:21 Dose: 2 mg Losartan Potassium (Cozaar) 100 mg PO DAILY [facility] Last Admin: 08/11/18 08:14 Dose: 100 mg Memantine (Namenda) 10 mg PO BID [facility] Last Admin: 08/11/18 08:15 Dose: 10 mg Ondansetron HCl (Zofran Odt) 4 mg PO Q6H PRN PRN Reason: Nausea/Vomiting Ondansetron HCl (Zofran) 4 mg IVP Q6H PRN PRN Reason: Nausea/Vomiting Prednisone (Prednisone) 20 mg PO QAM-WM [facility] Last Admin: 08/11/18 08:15 Dose: 20 mg Senna/Docusate Sodium (Senokot S) 2 tab PO BID PRN PRN Reason: Constipation Sodium Chloride (Flush - Normal Saline) 10 ml IVF PRN PRN PRN Reason: Saline Flush Sodium Chloride ([place] Nasal [place] 0.65%) 0 ml EA NARE QIDPRN PRN PRN Reason: Nasal Congestion Throat Lozenges (Cepastat Lozenges) 1 shannan PO Q2H PRN PRN Reason: Sore Throat Tramadol HCl (Ultram) 50 mg PO Q4H PRN PRN Reason: Moderate to Severe Pain (6-10) Last Admin: 08/11/18 09:20 Dose: 50 mg Zolpidem Tartrate (Ambien) 5 mg PO HSPRN PRN PRN Reason: Insomnia
[2018-08-11] MEDS: HumaLOG 300 UNITS/3 ML VIAL SC PRN ×3 (12:17→22:27)
[2018-08-11] MEDS: Sodium Chloride 0.9% 1,000 ML IV SCH (16:05)
[2018-08-11] MEDS: Atorvastatin Calcium 10 MG TAB PO SCH (19:56)
[2018-08-12] MEDS: Levothyroxine Sodium 125 MCG TAB PO SCH (05:14)
[2018-08-12] MEDS: Piperacillin/Tazobactam 3.375 GM in Sodium Chloride 0.9% 100 ML IVPB SCH (05:14)
[2018-08-12] MEDS: cefTRIAXone\\ROCEPHIN 1 GM in Sodium Chloride 0.9% 100 ML IVPB SCH (08:07)
[2018-08-12] MEDS: predniSONE 20 MG TAB PO SCH (08:08)
[2018-08-12 08:09] VITALS: TEMP 97.4
[2018-08-12] MEDS: Amlodipine 5 MG TAB PO SCH (08:09)
[2018-08-12] MEDS: Gabapentin 300 MG CAP PO SCH (08:09)
[2018-08-12] MEDS: Lactinex Tablet PO SCH (08:09)
[2018-08-12] MEDS: Famotidine/PF 20 mg/2ml Vial SLOW IVP SCH (08:09)
[2018-08-12] MEDS: Losartan 25 MG TAB PO SCH (08:09)
--- NOTE | 2018-08-12 11:00 | PDOC.PN ---
- Subjective Encounter Start Date: 08/12/18 Encounter Start Time: 08:20 Patient seen and examined. No new complaints. No overnight events - Objective Resuscitation Status - Order Detail: 08/08/18 01:42 Resuscitation Status Routine Co-Sign Provider: Resuscitation Status: FULL: Full Resuscitation MAR Reviewed: Yes Vital Signs & Weight: Vital Signs (12 hours) Temp Pulse Resp BP BP Pulse Ox 08/12/18 08:09 60 157/76 H 08/12/18 08:07 97.4 F L 60 18 157/76 H 97 08/12/18 07:00 97.4 F L Weight Admit Weight 221 lb 12.8 oz Weight 221 lb 12.8 oz I&O: 08/11/18 08/12/18 08/13/18 06:59 06:59 06:59 Intake Total 1580 480 240 Output Total 800 400 Balance 780 80 240 Result Diagrams: 08/10/18 06:37 08/10/18 06:37 Additional Labs: Accuchecks 08/12/18 08/11/18 08/11/18 05:40 21:42 16:45 POC Glucose 148 H 264 H 250 H 08/11/18 12:08 POC Glucose 382 H Phys Exam - Physical Examination Constitutional: NAD HEENT: PERRLA, moist MMs, sclera anicteric Neck: no JVD, supple Respiratory: no wheezing, no rales, no rhonchi Cardiovascular: RRR, no significant murmur, no rub Gastrointestinal: soft, non-tender, no distention, positive bowel sounds Musculoskeletal: no edema, pulses present Neurological: non-focal, normal sensation Lymphatic: no nodes Psychiatric: normal affect, A&O x 3 Skin: no rash, normal turgor Dx/Plan (1) Acute worsening of stage 3 chronic kidney disease Code(s): N18.3 - CHRONIC KIDNEY DISEASE, STAGE 3 (MODERATE) Status: Acute Comment: resolving, almost baseline creatinine now (2) Bacteremia due to group B Streptococcus Code(s): R78.81 - BACTEREMIA Status: Acute (3) Sepsis Code(s): A41.9 - SEPSIS, UNSPECIFIED ORGANISM Status: Acute (4) UTI (urinary tract infection) Status: Acute Qualifiers: Comment: E coli (5) Anemia, normocytic normochromic Code(s): D64.9 - ANEMIA, UNSPECIFIED Status: Chronic (6) Anxiety and depression Code(s): F41.9 - ANXIETY DISORDER, UNSPECIFIED; F32.9 - MAJOR DEPRESSIVE DISORDER, SINGLE EPISODE, UNSPECIFIED Status: Chronic (7) CAD (coronary artery disease) Code(s): I25.10 - ATHSCL HEART DISEASE OF [place] CORONARY ARTERY W/O ANG PCTRS Status: Chronic Qualifiers: Coronary Disease-Associated Artery/Lesion type: [place] artery [place] vs. transplanted heart: [place] heart Associated angina: without angina Qualified Code(s): I25.10 - Atherosclerotic heart disease of [place] coronary artery without angina pectoris (8) Dementia Code(s): F03.90 - UNSPECIFIED DEMENTIA WITHOUT BEHAVIORAL DISTURBANCE Status: Chronic Qualifiers: Alzheimer's disease onset: unspecified onset (9) Diabetes type 2, controlled Code(s): E11.9 - TYPE 2 DIABETES MELLITUS WITHOUT COMPLICATIONS Status: Chronic Qualifiers: Diabetes mellitus intermediate insulin use: with intermission coordinator use Diabetes mellitus complication status: with kidney complications Chronic kidney disease stage: stage 3 (moderate) (10) Dyslipidemia Code(s): E78.5 - HYPERLIPIDEMIA, UNSPECIFIED Status: Chronic (11) Hypertension Code(s): I10 - ESSENTIAL (PRIMARY) HYPERTENSION Status: Chronic Qualifiers: (12) Hypothyroidism Code(s): E03.9 - HYPOTHYROIDISM, UNSPECIFIED Status: Chronic Qualifiers: Hypothyroidism type: unspecified Qualified Code(s): E03.9 - Hypothyroidism , unspecified Comment: Continue synthroid (13) Obesity (BMI 30-39.9) Code(s): E66.9 - OBESITY, UNSPECIFIED Status: Chronic - Plan cont current plan of care, continue antibiotics, PT/OT * DC zosyn * augmentin on discharge * start PT * medication reviewed as below * symptomatic treatment. Review of Systems - Review of Systems ENT: negative: Ear Pain, Ear Discharge, Nose Pain, Nose Discharge, Nose Congestion, Mouth Pain, Mouth Swelling, Throat Pain, Throat Swelling, Other Respiratory: negative: Cough, Dry, Shortness of Breath, Hemoptysis, SOB with Excertion, Pleuritic Pain, Sputum, Wheezing Cardiovascular: negative: chest pain, palpitations, orthopnea, paroxysmal nocturnal dyspnea, edema, light headedness, other Gastrointestinal: negative: Nausea, Vomiting, Abdominal Pain, Diarrhea, Constipation, Melena, Hematochezia, Other Genitourinary: negative: Dysuria, Frequency, Incontinence, Hematuria, Retention , Other Musculoskeletal: negative: Neck Pain, Shoulder Pain, Arm Pain, Back Pain, Hand Pain, Leg Pain, Foot Pain, Other - Medications/Allergies Allergies/Adverse Reactions: Allergies Allergy/AdvReac Type Severity Reaction Status Date / Time hydrocodone Allergy lose memory Verified 07/15/18 10:41 levofloxacin [From Levaquin] Allergy Verified 07/01/16 20:16 morphine Allergy Verified 07/02/16 18:01 Medications: Current Medications Acetaminophen (Tylenol) 650 mg PO Q4H PRN PRN Reason: Headache/Fever/Mild Pain (1-3) Last Admin: 08/09/18 14:59 Dose: 650 mg Acetaminophen (Tylenol) 650 mg [place] Q4H PRN PRN Reason: Headache/Fever/Mild Pain (1-3) Acidophilus (Floranex) 1 tab PO DAILY [facility] Last Admin: 08/12/18 08:09 Dose: 1 tab Amlodipine Besylate (Norvasc) 5 mg PO DAILY [facility] Last Admin: 08/12/18 08:09 Dose: 5 mg Artificial Tears (Tears Naturale) 2 drop EA EYE PRN PRN PRN Reason: Dry Eyes Atorvastatin Calcium (Lipitor) 10 mg PO HS [facility] Last Admin: 08/11/18 19:56 Dose: 10 mg Dextrose/Water (Dextrose 50%) 25 gm SLOW IVP PRN PRN PRN Reason: Hypoglycemia Famotidine (Pepcid) 20 mg SLOW IVP DAILY [facility] Last Admin: 08/12/18 08:09 Dose: 20 mg Gabapentin (Neurontin) 300 mg PO TID [facility] Last Admin: 08/12/18 08:09 Dose: 300 mg Glucagon (Glucagon) 1 mg IM PRN PRN PRN Reason: Hypoglycemia Guaifenesin (Robitussin Sf) 200 mg PO Q4H PRN PRN Reason: Cough Hydralazine HCl (Apresoline) 10 mg SLOW IVP Q4H PRN PRN Reason: SBP > 180 and HR < 70 Ceftriaxone Sodium 1 gm/ (Sodium Chloride) 100 mls @ 200 mls/hr IVPB Q12HR [facility] Last Admin: 08/12/18 08:07 Dose: 100 mls Dextrose/Water (D5w) 1,000 mls @ 0 mls/hr IV .Q0M PRN PRN Reason: Hypoglycemia Insulin Human Lispro (Humalog) 0 units SC .MILD SLIDING SCALE PRN PRN Reason: Mild Correctional Scale Last Admin: 08/11/18 17:43 Dose: 3 unit Insulin Human Lispro (Humalog) 0 units SC .BEDTIME SLIDING SC PRN PRN Reason: Bedtime Correctional Scale Last Admin: 08/11/18 22:27 Dose: 3 unit Levothyroxine Sodium (Synthroid) 125 mcg PO 0600 [facility] Last Admin: 08/12/18 05:14 Dose: 125 mcg Loperamide HCl (Imodium) 2 mg PO PRN PRN PRN Reason: Diarrhea/Loose Stools Last Admin: 08/11/18 08:18 Dose: 2 mg Loratadine (Claritin) 10 mg PO DAILYPRN PRN PRN Reason: Sinus Symptoms Lorazepam (Ativan) 2 mg SLOW IVP Q6H PRN PRN Reason: .ANXIETY/AGITATION Last Admin: 08/11/18 16:04 Dose: 2 mg Losartan Potassium (Cozaar) 100 mg PO DAILY [facility] Last Admin: 08/12/18 08:09 Dose: 100 mg Memantine (Namenda) 10 mg PO BID [facility] Last Admin: 08/12/18 08:09 Dose: 10 mg Ondansetron HCl (Zofran Odt) 4 mg PO Q6H PRN PRN Reason: Nausea/Vomiting Ondansetron HCl (Zofran) 4 mg IVP Q6H PRN PRN Reason: Nausea/Vomiting Senna/Docusate Sodium (Senokot S) 2 tab PO BID PRN PRN Reason: Constipation Sodium Chloride (Flush - Normal Saline) 10 ml IVF PRN PRN PRN Reason: Saline Flush Sodium Chloride ([place] Nasal [place] 0.65%) 0 ml EA NARE QIDPRN PRN PRN Reason: Nasal Congestion Throat Lozenges (Cepastat Lozenges) 1 shannan PO Q2H PRN PRN Reason: Sore Throat Tramadol HCl (Ultram) 50 mg PO Q4H PRN PRN Reason: Moderate to Severe Pain (6-10) Last Admin: 08/11/18 19:56 Dose: 50 mg Zolpidem Tartrate (Ambien) 5 mg PO HSPRN PRN PRN Reason: Insomnia
--- NOTE | 2018-08-12 12:10 | DIS ---
DATE OF ADMISSION: 08/09/2018 DATE OF DISCHARGE: 08/12/2018 PRIMARY CARE PHYSICIAN: Josr Toth, DISCHARGE DISPOSITION: long-term home. PRIMARY DISCHARGE DIAGNOSES: 1. Urinary tract infection. 2. Group B Streptococcus bacteremia. 3. Acute on chronic kidney failure. 4. Sepsis. SECONDARY DISCHARGE DIAGNOSES: 1. Obesity with BMI 36. 2. Hypothyroidism. 3. Hypertension. 4. Dyslipidemia. 5. Diabetes, type 2. 6. Dementia. 7. Coronary artery disease. 8. Physical deconditioning. 9. Anxiety and depression. PRIMARY PROCEDURE/OPERATION: None. RADIOLOGICAL INVESTIGATION: Chest x-ray, abdomen and pelvis CT scan, abdomen x-ray, and brain CT scan. SIGNIFICANT LABORATORY DATA: Hemoglobin 11.7, creatinine 1.61. DISCHARGE MEDICATIONS: 1. Tylenol No. 3 one tablet q.8h hourly p.r.n. 2. Norvasc 5 mg p.o. daily. 3. Gabapentin 300 mg t.i.d. 4. Probiotic one capsule daily. 5. Levothyroxine 125 mcg p.o. daily. 6. Losartan 100 mg p.o. daily. 7. Namenda 10 mg b.i.d. 8. Zocor 20 mg p.o. at bedtime. 9. Augmentin 500 mg p.o. b.i.d. for 7 days. 10. Florastor 250 mg p.o. daily for 7 days. CONTRAINDICATION: None. CODE STATUS: Full code. INPATIENT UNDERGROUND DISTRIBUTION ENGINEER: Dr. Sanders. TEST RESULT PENDING ON DISCHARGE: None. ALLERGY: Hydrocodone, Levaquin, and morphine. DISCHARGE PLAN: Posthospital, the patient is planned for discharge to long term home. Subsequently, the patient will follow up with primary care physician. HOSPITAL COURSE: A 77-year-old female, who was admitted by nurse practitioner, Kavita Taylor. Please see her H and P for further details. On admission, the patient was having abdominal pain. In the emergency room, she had CT abdomen, chest, and pelvis, which was unremarkable. On admission, she was having sepsis criteria, which we suspected from urinary tract infection. Her 1/2 blood culture was positive for group B Streptococcus. Her urine culture was also positive for Streptococcus. There was no other source of infection. This patient did not have any back pain. She does not have any murmur. We are not suspecting any endocarditis or any distant focus of infection. We treated while in hospital with Rocephin and Zosyn. On discharge, we changed to Augmentin. Dr. Sanders evaluated this patient and he recommended to continue Rocephin while in hospital. This patient is afebrile, tolerating p.o. well, ambulatory. The patient is seen and examined at bedside today. Please see my progress note from today for further detail. Paperwork for discharge done. Discharge medication reconciliation done. TIME SPENT: Total time spent on discharge day, 31 minutes. Job ID: [id number]
[2018-08-12] MEDS: HumaLOG 300 UNITS/3 ML VIAL SC PRN (12:48)
[2018-08-12 14:36] VITALS: BP 141/78
[2018-08-12] MEDS ORDERED: cefTRIAXone\\ROCEPHIN 1 GM in Sodium Chloride 0.9% 100 ML IVPB SCH (21:00)
== END 2018-08-12 14:17 | DRG 872 ==
LOC: ERS 16:47 → T4-A 23:17 → OBSVTOIN 08-09 14:33
PROVIDERS: ADMIT Internal Medicine; ATTEND Internal Medicine
DX: A40.1 Sepsis due to streptococcus, group B (principal); N39.0 Urinary tract infection, site not specified; N17.9 Acute kidney failure, unspecified; I42.9 Cardiomyopathy, unspecified; E66.9 Obesity, unspecified; E03.9 Hypothyroidism, unspecified; I12.9 Hypertensive chronic kidney disease with stage 1 through stage 4 chronic kidney disease, or unspecified chronic kidney disease; N18.3 Chronic kidney disease, stage 3 (moderate); E78.5 Hyperlipidemia, unspecified; E11.22 Type 2 diabetes mellitus with diabetic chronic kidney disease; F03.90 Unspecified dementia, unspecified severity, without behavioral disturbance, psychotic disturbance, mood disturbance, and anxiety; I25.10 Atherosclerotic heart disease of native coronary artery without angina pectoris; F41.9 Anxiety disorder, unspecified; F32.9 Major depressive disorder, single episode, unspecified; Z96.653 Presence of artificial knee joint, bilateral; Z88.1 Allergy status to other antibiotic agents; Z68.36 Body mass index [BMI] 36.0-36.9, adult; Z88.5 Allergy status to narcotic agent; Z88.8 Allergy status to other drugs, medicaments and biological substances; Z95.0 Presence of cardiac pacemaker; Z79.899 Other long term (current) drug therapy; Z79.4 Long term (current) use of insulin
CPT/HCPCS: 36415; 36416; 70450; 71045; 71250; 74018; 74177; 80048; 80053; 80076; 81003; 81015; 83605; 83690; 83735; 84484; 85025; 85652; 87040; 87077; 87086; 87149; 87186; 93005; J0696; J2001; J2060; J2543; J3490; J7512; S0028

== ENCOUNTER 2019-01-02 14:35 | Emergency (ER) | payer MEDICARE, OTHER ==
[2019-01-02] MEDS ORDERED: Ondansetron PF 4 MG/2 ML Vial ONE (15:35)
[2019-01-02] MEDS ORDERED: Fentanyl 100 MCG/2 ML VIAL ONE (15:35)
[2019-01-02 16:19] LABS: Bacteria/HPF None Seen HPF (None Seen); Bilirubin Negative (Negative); Blood, Urine Negative (Negative); Clarity Clear (Clear); Glucose, Urine (Dipstick) 500 mg/dL (Negative); Leukocyte Negative Leu/uL (Negative); Nitrite Negative (Negative); Protein, Urine (Dipstick) 200 mg/dL (Neg-Trace); RBC/HPF 0-3 HPF (0-3); Squamous Epithelial 0-3 HPF (0-3); Urobilinogen Normal mg/dL (Less than 2)
[2019-01-02 17:16] LABS: #Eosinphils 0.3 thou/uL (0.0-0.7); #Lymphocytes 2.4 thou/uL (1.20-3.40); #Monocytes 0.6 thou/uL (0.11-0.59); #Neutrophils 3.7 thou/uL (1.40-6.50); %Basophils 0.5 % (0.0-1.0); %Lymphocytes 34.3 % (21.0-51.0); %Monocytes 8.3 % (0.0-10.0); %Neutrophils 52.8 % (42.0-75.0); Hemoglobin 11.7 g/dL (12.0-16.0); Mean Corpuscular HGB CONC 33.9 g/dL (32.0-36.0); Mean Corpuscular Hemoglobin 31.6 pg (27.0-31.0); Mean Corpuscular Volume 93.4 fL (78.0-98.0); Mean Platelet Volume 7.3 fL (7.4-10.4); Platelet Count 301 thou/uL (130-400); RBC Distribution Width 12.2 % (11.5-14.5); White Blood Cell (WBC) Count 7.1 thou/uL (4.8-10.8)
[2019-01-02 17:41] LABS: ALT (SGPT) 16 U/L (8-55); AST (SGOT) 18 U/L (5-34); Albumin 3.7 g/dL (3.4-4.8); Alkaline Phosphatase 115 U/L (40-110); Anion Gap 16 mmol/L (10-20); BUN (Urea Nitrogen) 30 mg/dL (9.8-20.1); Bilirubin, Total 0.3 mg/dL (0.2-1.2); CK (CPK) 53 U/L (29-168); Calc. Creatinine Clearance 0 mL/min (70-130); Calcium 8.9 mg/dL (7.8-10.44); Carbon Dioxide 21 mmol/L (23-31); Chloride 109 mmol/L (98-107); Estimated GFR-MDRD 26; Globulin 3.3 g/dL (2.4-3.5); Glucose 289 mg/dL (83-110); Lipase 29 U/L (8-78); Potassium 4.9 mmol/L (3.5-5.1); Sodium 141 mmol/L (136-145)
--- NOTE | 2019-01-02 18:18 | CT ---
CT Abdomen Pelvis WO Con History: Abdominal pain Comparison: CT abdomen July 2018 Findings: Mild scarring the lung bases. No pericardial effusion. Low-grade bilateral perinephric stranding. Nonobstructive punctate right interpolar renal calculi. No nobstructive left punctate interpolar renal calculi. Mild fullness of the left renal pelvis. No ureteral calculus. Urinary bladder is without calculus. Moderate diverticular disease of the sigmoid colon without activ e current inflammation. Noncontrast evaluation of the liver, spleen, pancreas are unremarkable. Prior laminectomy changes at L4. High-grade degenerative disc space disease and facet arthrosis lower lumbar spine. Impression: 1. Nonobstructive bilateral renal calculi. 2. Extensive diverticular disease sigmoid colon without active inflammation.
== END 2019-01-02 19:49 | disposition home or self-care (01) ==
LOC: ERS 14:35
DX: N20.0 Calculus of kidney (principal); I25.10 Atherosclerotic heart disease of native coronary artery without angina pectoris; E03.9 Hypothyroidism, unspecified; E10.9 Type 1 diabetes mellitus without complications; E78.5 Hyperlipidemia, unspecified; E66.9 Obesity, unspecified; F03.90 Unspecified dementia, unspecified severity, without behavioral disturbance, psychotic disturbance, mood disturbance, and anxiety; I12.9 Hypertensive chronic kidney disease with stage 1 through stage 4 chronic kidney disease, or unspecified chronic kidney disease; N18.3 Chronic kidney disease, stage 3 (moderate); F41.9 Anxiety disorder, unspecified; Z79.899 Other long term (current) drug therapy; Z79.4 Long term (current) use of insulin
CPT/HCPCS: 36415; 74176; 80053; 81003; 81015; 82550; 83690; 84484; 85025; 93005; 96361; 96374; 96375; J2405; J3010

== ENCOUNTER 2019-12-04 22:09 | Inpatient (IN) | payer MEDICARE, OTHER, MEDICAID ==
[2019-12-04 22:49] LABS: #Basophils 0.1 thou/uL (0.0-0.2); #Eosinphils 0.1 thou/uL (0.0-0.7); #Lymphocytes 2.4 thou/uL (1.20-3.40); #Monocytes 0.8 thou/uL (0.11-0.59); #Neutrophils 9.8 thou/uL (1.40-6.50); %Basophils 0.4 % (0.0-1.0); %Eosinophils 0.8 % (0.0-10.0); %Lymphocytes 18.2 % (21.0-51.0); %Monocytes 6.3 % (0.0-10.0); %Neutrophils 74.3 % (42.0-75.0); Hemoglobin 12.8 g/dL (12.0-16.0); Mean Corpuscular HGB CONC 34.4 g/dL (32.0-36.0); Mean Corpuscular Hemoglobin 32.1 pg (27.0-31.0); Mean Corpuscular Volume 93.4 fL (78.0-98.0); Mean Platelet Volume 8.1 fL (7.4-10.4); Platelet Count 289 thou/uL (130-400); RBC Distribution Width 12.3 % (11.5-14.5); Red Blood Cell (RBC) Count 3.97 mill/uL (4.20-5.40); White Blood Cell (WBC) Count 13.2 thou/uL (4.8-10.8)
[2019-12-04 22:53] LABS: INR-International Normal Ratio 1.1; PTT 26.9 sec (22.9-36.1); Prothrombin Time 14.4 sec (12.0-14.7)
[2019-12-04 23:12] LABS: ALT (SGPT) 11 U/L (8-55); AST (SGOT) 19 U/L (5-34); Albumin 3.6 g/dL (3.4-4.8); Alkaline Phosphatase 87 U/L (40-110); Anion Gap 17 mmol/L (10-20); BUN (Urea Nitrogen) 45 mg/dL (9.8-20.1); Bilirubin, Total 0.3 mg/dL (0.2-1.2); Calc. Creatinine Clearance 0 mL/min (70-130); Calcium 9.3 mg/dL (7.8-10.44); Carbon Dioxide 19 mmol/L (23-31); Chloride 111 mmol/L (98-107); Estimated GFR-MDRD 20; Globulin 3.4 g/dL (2.4-3.5); Glucose 176 mg/dL (83-110); Lipase 22 U/L (8-78); Magnesium 1.8 mg/dL (1.6-2.6); Potassium 4.4 mmol/L (3.5-5.1); Sodium 143 mmol/L (136-145)
[2019-12-05] MEDS ORDERED: Ondansetron PF 4 MG/2 ML Vial IVP PRN ×2 (00:46→07:54)
[2019-12-05] MEDS ORDERED: Dextrose 50% Abboject 50 ML SYRINGE SLOW IVP PRN (00:46)
[2019-12-05] MEDS ORDERED: Dextrose 5% in Water 1,000 ML IV PRN (00:46)
[2019-12-05] MEDS ORDERED: HumaLOG 300 UNITS/3 ML VIAL SC PRN (00:46)
[2019-12-05] MEDS ORDERED: Piperacillin/Tazobactam 4.5 GM VIAL ONE (00:53)
[2019-12-05 01:36] LABS: Glucose 144 mg/dL (83-110)
--- NOTE | 2019-12-05 01:40 | PDOC.EVN ---
Event Note - Event Note Event Note: [id number] HP dictated
--- NOTE | 2019-12-05 02:39 | HP ---
CHIEF COMPLAINT: Rectal bleeding. HISTORY OF PRESENT ILLNESS: Ms. Ford is a 79-year-old female with past medical history of hepatitis C, coronary artery disease, hypothyroidism, pacemaker, diabetes, hyperlipidemia, hypertension, obesity, dementia, neuropathy, CKD stage 3, among others, was brought from a snf for three episodes of rectal bleeding. The patient is not on blood thinners. The patient is awake, alert, and oriented x1 at her baseline. The patient also had some abdominal pain, but she is a very poor historian due to baseline dementia. Workup in the emergency room, the patient's hemoglobin was 12.8, WBC 13.2, platelets 289. INR is 1.1. Sodium 143, potassium 4.4, BUN is 45, creatinine 2.3 which is above her baseline. Glucose 176. CT abdomen and pelvis was done by ED and official report is not available at the time of this dictation. As per ER physician initial report, possible colitis. The patient is on IV antibiotics. The patient has been admitted to hospital for further management. PAST MEDICAL HISTORY: As mentioned above in history of present illness. PAST SURGICAL HISTORY: 1. Bilateral knee surgery. 2. Carpal tunnel. 3. Spinal surgery. 4. Pacemaker replaced. PAST PSYCHIATRIC HISTORY: Anxiety, major depression. SOCIAL HISTORY: The patient lives in a long-term facility. No history of drug use, alcohol use, or smoking history. HOME MEDICATIONS: Please see home medication reconciliation form for updated medications. ALLERGIES: ALLERGIC TO HYDROCODONE, LEVAQUIN, MORPHINE. REVIEW OF SYSTEMS: Unable to obtain due to the patient's underlying medical condition. PHYSICAL EXAMINATION: GENERAL: The patient is awake, alert, and not in acute distress. VITAL SIGNS: Blood pressure is 128/68, respiratory rate is 19, pulse is 80, oxygen saturation 98% on room air, temperature is 98.3. HEAD AND NECK: Normocephalic, atraumatic. NECK: Supple. No JVD. CHEST: Fair bilateral air entry. HEART: S1, S2. Regular. ABDOMEN: Soft with mild lower abdomen tenderness. Bowel sounds present. NEUROLOGIC: Awake, alert, moving extremities. PSYCH: Unable to assess. EXTREMITIES: No clubbing or cyanosis. LABS: Stool for occult blood positive. Otherwise labs as mentioned above in history of present illness. ASSESSMENT AND PLAN: 1. Acute GI bleed, lower? 2. Colitis? 3. Coronary artery disease. 4. History of hepatitis C. 5. Hyperlipidemia. 6. Acute kidney injury on top of chronic kidney disease, stage 3. 7. Dementia. PLAN: 1. Admit. 2. Monitor hemoglobin and hematocrit. 3. IV fluids. 4. Consult GI for evaluation of further management. 5. Continue with IV antibiotics for possible colitis. 6. Reconcile home medications. 7. DVT prophylaxis as appropriate. 8. Expected length of stay, 2 midnights or more. Case was discussed with the patient's daughter and ED physician. Job ID: [id number]
[2019-12-05] MEDS: cefTRIAXone\\ROCEPHIN 1 GM in Sodium Chloride 0.9% 100 ML IVPB SCH (02:41)
[2019-12-05 02:53] VITALS: BMI 40.5
[2019-12-05] MEDS: Dextrose 5 %-0.45 % NaCl 1,000 ML IV SCH ×3 (03:22→21:36)
[2019-12-05] MEDS: metroNIDAZOLE 500 MG in Premix Bag 1 BAG IVPB SCH ×3 (03:36→21:35)
[2019-12-05 06:11] LABS: #Basophils 0.1 thou/uL (0.0-0.2); #Eosinphils 0.1 thou/uL (0.0-0.7); #Lymphocytes 1.6 thou/uL (1.20-3.40); #Monocytes 1.3 thou/uL (0.11-0.59); %Basophils 0.4 % (0.0-1.0); %Eosinophils 0.7 % (0.0-10.0); %Lymphocytes 10.2 % (21.0-51.0); %Monocytes 7.9 % (0.0-10.0); %Neutrophils 80.9 % (42.0-75.0); Hemoglobin 11.4 g/dL (12.0-16.0); Mean Corpuscular HGB CONC 33.7 g/dL (32.0-36.0); Mean Corpuscular Hemoglobin 32.1 pg (27.0-31.0); Mean Corpuscular Volume 95.2 fL (78.0-98.0); Mean Platelet Volume 8.8 fL (7.4-10.4); Platelet Count 210 thou/uL (130-400); RBC Distribution Width 12.5 % (11.5-14.5); Red Blood Cell (RBC) Count 3.55 mill/uL (4.20-5.40)
--- NOTE | 2019-12-05 06:57 | CT ---
CT ABDOMEN AND PELVIS PERFORMED WITHOUT CONTRAST ENHANCEMENT: Date: 12/04/2019 HISTORY: Rectal bleeding. Abdominal pain. COMPARISON: 09/23/2019 exam. FINDINGS: The lung bases are clear of infiltrates. The liver, spleen, and pancreas regions are unremarkable. The gallbladder has been removed. There is mild ductal dilatation, probably on the basis of the cholecystectomy. Right and left adrenal glands, and right and left kidneys are normal in size. Cortical thinning of karmen th kidneys. Punctate nonobstructing lower pole right renal calculus is seen. There is no significant periaortic or mesenteric adenopathy. CT of pelvis was performed without contrast enhancement. Diverticulosis of the descending and sigmoid colon are noted. It is difficult to assess the wall of the rectosigmoid colon, although there is sug gestion there may be some wall thickening present. It could be just material within the bowel. There is no pneumatosis identified. No free fluid. Arthritic changes of the spine are noted. Partial visualization of a dorsal column stimulator. IMPRESSION: 1. Diverticulosis of the colon. The more distal sigmoid colon may have some wall thickening, or this may just be related to some fluid within the rectosigmoid region. No pneumatosis. No evidence for di verticulitis. 2. Cortical thinning of both kidneys. 3. Post cholecystectomy change. POS: OFF
[2019-12-05 07:27] LABS: ALT (SGPT) 12 U/L (8-55); AST (SGOT) 18 U/L (5-34); Albumin 3.4 g/dL (3.4-4.8); Alkaline Phosphatase 82 U/L (40-110); Anion Gap 15 mmol/L (10-20); BUN (Urea Nitrogen) 45 mg/dL (9.8-20.1); Bilirubin, Total 0.5 mg/dL (0.2-1.2); Calc. Creatinine Clearance 34 mL/min (70-130); Carbon Dioxide 21 mmol/L (23-31); Chloride 113 mmol/L (98-107); Estimated GFR-MDRD 20; Globulin 2.9 g/dL (2.4-3.5); Glucose 188 mg/dL (83-110); Potassium 4.4 mmol/L (3.5-5.1); Protein, Total 6.3 g/dL (6.0-8.3); Sodium 145 mmol/L (136-145)
[2019-12-05] MEDS ORDERED: Calcium Carbonate 500 MG ChewTAB PO PRN (07:54)
[2019-12-05] MEDS ORDERED: Ondansetron ODT 4 MG TAB PO PRN (07:54)
[2019-12-05] MEDS ORDERED: Acetaminophen 325 MG TAB PO PRN (07:54)
[2019-12-05] MEDS ORDERED: FLU VACC QS2020-21(65YR UP)/PF 240 MCG/0.7 ML SYRINGE IM ONE (09:00)
[2019-12-05] MEDS: Saccharomyces boulardii 250 MG CAP PO SCH (09:53)
[2019-12-05] MEDS: Pantoprazole 40 MG VIAL IVP SCH ×2 (09:54→21:35)
[2019-12-05 10:42] LABS: SARS-CoV-2 MS2 Positive; SARS-CoV-2 N Gene Negative; SARS-CoV-2 S Gene Negative; SARS-CoV-2 by NAA Not Detected (NotDetected); SARS-CoV-2 orf1ab Negative
[2019-12-05 14:59] LABS: Hemoglobin 10.8 g/dL (12.0-16.0)
[2019-12-05 15:06] LABS: Bacteria/HPF 3+ HPF (None Seen); Bilirubin Negative (Negative); Blood, Urine 3+ (Negative); Clarity Extra Turbid (Clear); Glucose, Urine (Dipstick) Normal (Negative); Ketone, Urine Negative (Negative); Leukocyte 500 Leu/uL (Negative); Nitrite 1+ (Negative); Protein, Urine (Dipstick) 300 mg/dL (Neg-Trace); RBC/HPF Greater than 50 HPF (0-3); Specific Gravity, Urine 1.029 (1.002-1.036); Squamous Epithelial 0-3 HPF (0-3); Urobilinogen Normal mg/dL (Less than 2); WBC/HPF Greater than 50 HPF (0-3)
[2019-12-05 15:09] LABS: Urine Culture Reflex Yes Yes
[2019-12-05 22:09] LABS: Hemoglobin 9.9 g/dL (12.0-16.0)
--- NOTE | 2019-12-05 23:00 | CON ---
DATE OF CONSULTATION: 12/05/2019 REQUESTING PHYSICIAN: Harpreet Mccauley MD REASON FOR CONSULTATION: Rectal bleeding. HISTORY OF PRESENT ILLNESS: Esther Ford is a 79-year-old woman, with severe dementia, who is essentially noncommunicative. She was sent from her longterm last night with a report of rectal bleeding episode x3. It is unclear whether the patient might have been expressing some abdominal pain as well. She has a history notable for coronary artery disease with pacemaker placement and chronic kidney disease, as well as obesity. She has had progressive dementia, which has been quite rapidly advancing over the past few years. I actually saw her in hospital consultation just two months ago, in September for a fecal impaction with laxative administration and digital stimulation, This completely resolved. I had recommended she be on a bowel regimen, including MiraLAX twice daily, Colace twice daily, and magnesium citrate as needed. I am not sure what her bowel habits have been recently. Notably, her last colonoscopy in May 2015 showed a single inflammatory polyp, which was removed, but due to the progression of her dementia, I had recommended no further colon surveillance examinations. Again, evidently she had rectal bleeding x3 yesterday. So far today, she had a single bowel movement, which had some blood-tinged mucousy stool. She is not complaining of any abdominal pain. She has not had any vomiting. She is noncommunicative. She has gotten some IV antibiotics and has been found to have urinary infection. CT scan on admission demonstrated left-sided diverticulosis, but no evidence of inflammation, except for some possible thickening in the rectosigmoid colon. Hemoglobin is at baseline at 10.8. FOBT was positive. REVIEW OF SYSTEMS: Unable to obtain due to the patient's underlying severe dementia. PAST MEDICAL HISTORY: Coronary artery disease; pacemaker; diabetes; hypertension; hyperlipidemia; obesity; chronic kidney disease, stage 3; neuropathy; dementia; bilateral knee surgery; depression and anxiety; history of colon polyps with inflammatory polyp removed in May 2015; and fecal impaction in September 2019. SOCIAL HISTORY: The patient resides at a long-term care facility. No smoking, alcohol, or drug use. Her daughter Peter Ford is at [phone], though I was unable to reach her today. FAMILY HISTORY: Noncontributory. ALLERGIES: HYDROCODONE, LEVOFLOXACIN, AND MORPHINE. OUTPATIENT MEDICATIONS: 1. Insulin glargine 12 units b.i.d. 2. Lactobacillus. 3. Losartan. 4. Levothyroxine. 5. Docusate 100 mg b.i.d. 6. Norvasc 5 mg daily. 7. Gabapentin 300 mg t.i.d. 8. Clonidine. 9. Zocor. 10. Memantine 10 mg b.i.d. INPATIENT MEDICATIONS: 1. Ceftriaxone 1 g q.24 hours. 2. Metronidazole 500 mg q.8 hours IV. PHYSICAL EXAMINATION: VITAL SIGNS: Temperature 99.2, pulse 61, blood pressure 119/56, and 95% oxygen saturation on room air. GENERAL: Chronically ill 79-year-old woman lying in bed, appearing comfortable, in no distress. SKIN: No jaundice and no rashes were palpable. EYES: No scleral icterus. Extraocular movements intact. ENT: Mucous membranes moist. No oral lesions. LYMPH: No submandibular or supraclavicular lymphadenopathy. Thyroid nontender to palpation. HEART: Regular rate and rhythm. LUNGS: Clear to auscultation bilaterally. ABDOMEN: Obese. Bowel sounds present. Soft and nontender to deep palpation throughout. EXTREMITIES: No peripheral edema. VESSELS: Radial pulses 2+ bilaterally. NEUROLOGIC: Patient does not follow commands. Mental, the patient does not communicate. She responds to painful, but not verbal stimuli. RECTAL: Digital rectal exam is performed. No external rectal abnormalities. There is some scant pink-tinged mucus on withdrawal of the glove. No palpable abnormalities internally. LABORATORY STUDIES: Hemoglobin 10.8, which is at her baseline; WBC 16.0; platelets 210; and MCV normal at 95. BUN 45, creatinine 2.37, glucose 188, and lipase normal at 22. INR normal at 1.1. LFTs all normal with total bilirubin 0.5, alkaline phosphatase 82, AST 18, ALT 12, and albumin 3.4. COVID PCR negative. FOBT positive. Urinalysis shows greater than 50 wbc's and greater than 50 rbc's, positive leukocyte esterase, 3+ bacteria. Urine culture is pending. IMAGING STUDIES: CT of the abdomen and pelvis shows left-sided diverticulosis with some possible rectosigmoid thickening. No evidence of inflammatory changes, postcholecystectomy. ASSESSMENT/PLAN: 1. Rectal bleeding, noted over the past 2 days. 2. Heme-positive stool. 3. Anemia, mild, at baseline. The patient does have some pink-tinged mucus on digital rectal exam without any significant hemoglobin decline from baseline. This is in the context of some recent rectal fecal impactions. I do not think the CT finding of possible rectosigmoid thickening is likely to be significant. Due to her profound dementia, we had not planned on any further surveillance colonoscopies. Given the new blood in the stool, I do think colonoscopic evaluation would be reasonable, if this is what the patient's family desired. I have been unable to get in touch with the patient's daughter today, but there is no urgency to this. For now, continue with observation. The patient is being treated with antibiotics for urinary tract infection. Dr. Cardoza will be following up for GI tomorrow, and if further investigation is desired, could potentially administer bowel preparation tomorrow for colonoscopy the following day. If we decided to proceed, the patient might need to have the prep administered through a nasogastric tube. Thank you for the consultation. Please call at anytime with questions or concerns. Job ID: [id number]
[2019-12-06] MEDS: cefTRIAXone\\ROCEPHIN 1 GM in Sodium Chloride 0.9% 100 ML IVPB SCH (02:46)
[2019-12-06 04:08] LABS: #Basophils 0.1 thou/uL (0.0-0.2); #Eosinphils 0.1 thou/uL (0.0-0.7); #Lymphocytes 2.5 thou/uL (1.20-3.40); #Monocytes 1.1 thou/uL (0.11-0.59); #Neutrophils 9.6 thou/uL (1.40-6.50); %Basophils 0.4 % (0.0-1.0); %Eosinophils 0.7 % (0.0-10.0); %Lymphocytes 18.5 % (21.0-51.0); %Monocytes 8.1 % (0.0-10.0); %Neutrophils 72.2 % (42.0-75.0); Hemoglobin 9.4 g/dL (12.0-16.0); Mean Corpuscular HGB CONC 33.4 g/dL (32.0-36.0); Mean Corpuscular Hemoglobin 32.1 pg (27.0-31.0); Mean Platelet Volume 8.1 fL (7.4-10.4); Platelet Count 231 thou/uL (130-400); RBC Distribution Width 12.6 % (11.5-14.5); Red Blood Cell (RBC) Count 2.92 mill/uL (4.20-5.40); White Blood Cell (WBC) Count 13.2 thou/uL (4.8-10.8)
[2019-12-06 04:09] LABS: Reticulocyte Count 2.5 % (0.5-1.5)
[2019-12-06] MEDS: metroNIDAZOLE 500 MG in Premix Bag 1 BAG IVPB SCH ×2 (04:11→11:48)
[2019-12-06 04:30] LABS: Iron 33 ug/dL (50-170); Iron Binding Capacity, Total 160 mcg/dL (265-497); Phosphorus 4.1 mg/dL (2.3-4.7)
[2019-12-06 04:35] LABS: ALT (SGPT) 10 U/L (8-55); AST (SGOT) 12 U/L (5-34); Albumin 2.8 g/dL (3.4-4.8); Alkaline Phosphatase 69 U/L (40-110); Anion Gap 13 mmol/L (10-20); BUN (Urea Nitrogen) 50 mg/dL (9.8-20.1); Bilirubin, Total 0.4 mg/dL (0.2-1.2); Calc. Creatinine Clearance 27 mL/min (70-130); Calcium 8.5 mg/dL (7.8-10.44); Carbon Dioxide 18 mmol/L (23-31); Chloride 114 mmol/L (98-107); Estimated GFR-MDRD 15; Globulin 2.8 g/dL (2.4-3.5); Glucose 188 mg/dL (83-110); Magnesium 1.6 mg/dL (1.6-2.6); Potassium 4.4 mmol/L (3.5-5.1); Protein, Total 5.6 g/dL (6.0-8.3); Sodium 141 mmol/L (136-145)
[2019-12-06] MEDS: Dextrose 5 %-0.45 % NaCl 1,000 ML IV SCH (08:32)
[2019-12-06] MEDS: Pantoprazole 40 MG VIAL IVP SCH ×2 (08:32→22:21)
[2019-12-06] MEDS: Saccharomyces boulardii 250 MG CAP PO SCH (08:33)
[2019-12-06] MEDS ORDERED: Dextrose 5 %-0.45 % NaCl 1,000 ML IV SCH (09:49)
[2019-12-06] MEDS ORDERED: Magnesium Sulfate 2 GM in Sodium Chloride 0.9% 100 ML IVPB SCH (10:00)
[2019-12-06] MEDS ORDERED: Magnesium 2 GM/50 ML 2 GM in Premix Bag 1 BAG IVPB SCH (10:15)
[2019-12-06 10:27] LABS: Actual Bicarbonate (HCO3a) 21.4 mEq/L (22-28); Base Excess (BEa) -4.1 mEq/L (-2.0 to +3.0); CO2 Tension 41.1 mmHg (35.0-45.0); Calcium, Ionized (arterial) 1.21 mmol/L (1.12-1.30); Carboxyhemoglobin (COHb) 0.6 gm% (0.0-3.0); Hemoglobin (Hb) 11.6 g/dL (12.0-16.0); Potassium - ABG Lab 4.25 mmol/L (3.70-5.30); pH, Arterial 7.34 (7.35-7.45)
--- NOTE | 2019-12-06 10:37 | RAD ---
CHEST 1 VIEW: Date: 12/06/2019 HISTORY: Shortness of breath. COMPARISON: 09/21/2019. FINDINGS: Dual lead pacer is similar, as well as the dorsal column stimulator electrode paddle. No confluent ai r space consolidation, pneumothorax, or effusion. No acute osseous abnormality. IMPRESSION: No acute intrathoracic abnormality. POS: [facility]
[2019-12-06 10:43] LABS: O2 Tension (PaO2), arterial 59.9 mmHg (> 70.0)
[2019-12-06 10:44] LABS: ALV-art Gradient 38.455 mmHg (0-20); Puncture Site RRA
[2019-12-06 10:47] LABS: Lactic Acid 0.8 mmol/L (0.5-2.2)
[2019-12-06 10:53] LABS: Troponin I 0.032 ng/mL (< 0.028)
--- NOTE | 2019-12-06 11:52 | CT ---
CT BRAIN WITHOUT CONTRAST: Date: 12/06/2019 HISTORY: Altered mental status. COMPARISON: 09/21/2019. FINDINGS: Changes of cortical atrophy and chronic small vessel ischemic disease again seen. The ventricular siz e is stable and the basilar cisterns are patent. No evidence of acute infarct, hemorrhage, midline shift, or abnormal extra-axial fluid collections ar e noted. The bony calvarium is intact. The visualized paranasal sinuses and mastoid air cells are wel l aerated. IMPRESSION: No CT evidence of acute intracranial process. POS: [facility]
[2019-12-06] MEDS: Sodium Bicarbonate 150 MEQ in Dextrose 5% in Water 1,000 ML IV SCH (12:49)
[2019-12-06] MEDS ORDERED: Aquaphor 30 GM JAR TOP PRN (13:05)
[2019-12-06] MEDS ORDERED: HumaLOG 300 UNITS/3 ML VIAL SC PRN (15:09)
--- NOTE | 2019-12-06 15:21 | PDOC.HOSPP ---
- Subjective Encounter Date: 12/06/19 Encounter Time: 12:30 Subjective: Patient seen and examined for encephalopathy/GI bleeding. Remains confused. Mentation slightly worse from yesterday per RN. No new focal deficits. - Objective Vital Signs & Weight: Vital Signs (12 hours) Temp Pulse Pulse Pulse Resp BP BP 12/06/19 11:50 98.7 F 61 18 12/06/19 10:10 59 L 129/61 130/60 12/06/19 08:55 60 61 109/60 106/63 12/06/19 07:20 97.7 F 63 16 12/06/19 03:20 100.8 F H 68 21 H BP Pulse Ox Pulse Ox Pulse Ox 12/06/19 11:50 143/63 H 100 12/06/19 10:10 90 L 90 L 12/06/19 08:55 94 L 95 12/06/19 07:20 120/57 L 95 12/06/19 03:20 121/56 L 95 Weight Weight 243 lb 6.4 oz I&O: 12/05/19 12/06/19 12/07/19 06:59 06:59 06:59 Intake Total 0 Output Total 200 Balance -200 Result Diagrams: 12/06/19 03:39 12/06/19 03:39 Additional Labs: Accuchecks 12/06/19 12/06/19 12/06/19 12:52 08:36 03:27 POC Glucose 194 H 159 H 172 H 12/06/19 12/05/19 12/05/19 00:00 20:18 17:00 POC Glucose 135 H 175 H 173 H Abnormal Lab Results - Last 48 hrs 12/04/19 22:30: Chloride 111 H, Carbon Dioxide 19 L, BUN 45 H, Creatinine 2.31 H, Albumin/Globulin Ratio 1.1 L 12/04/19 22:30: WBC 13.2 H, RBC 3.97 L, MCH 32.1 H, Lymphocytes % 18.2 L, Neutrophils # 9.8 H, Monocytes # 0.8 H 12/05/19 05:51: WBC 16.0 H, RBC 3.55 L, Hgb 11.4 L, Hct 33.8 L, MCH 32.1 H, Neutrophils % 80.9 H, Lymphocytes % 10.2 L, Neutrophils # 13.0 H, Monocytes # 1.3 H 12/05/19 05:52: Chloride 113 H, Carbon Dioxide 21 L, BUN 45 H, Creatinine 2.37 H 12/05/19 14:38: Hgb 10.8 L 12/05/19 14:38: Urine Clarity Extra Turbid A, Urine Protein 300 A, Urine Blood 3+ A, Urine Nitrite 1+ A, Ur Leukocyte Esterase 500 A, Urine RBC Greater than 50 A, Urine WBC Greater than 50 A, Urine Bacteria 3+ A, Urine Culture Reflexed Yes A 12/05/19 22:01: Hgb 9.9 L 12/06/19 03:39: Chloride 114 H, Carbon Dioxide 18 L, BUN 50 H, Creatinine 2.95 H, Serum Total Protein 5.6 L, Albumin 2.8 L, Albumin/Globulin Ratio 1.0 L 12/06/19 03:39: WBC 13.2 H, RBC 2.92 L, Hgb 9.4 L, Hct 28.0 L, MCH 32.1 H, Lymphocytes % 18.5 L, Neutrophils # 9.6 H, Monocytes # 1.1 H 12/06/19 03:39: Iron 33 L, TIBC 160 L 12/06/19 03:39: Retic Count 2.5 H 12/06/19 10:16: Troponin I 0.032 H 12/06/19 10:30: Bicarbonate Actual 21.4 L, ABG pH 7.34 L, ABG pO2 59.9 L*, ABG O2 Sat (Measured) 91.3 L, ABG O2 Content 14.8 L, ABG Base Excess -4.1 L, ABG Hematocrit 34.0 L, ABG Hemoglobin 11.6 L, ABG Oxyhemoglobin 90.5 L, ABG Deoxyhemoglobin 8.6 H, A-a O2 Gradient 38.455 H, Chloride 113 H Microbiology - Entire Visit 12/05/19 15:08 Urine clean catch Urine Culture - Preliminary Presumptive Escherichia coli 12/04/19 23:03 Stool - Pending Stool Occult Blood (ALBERTO) - Final Radiology Reviewed by me: Yes (CT brainnegative for CVA) EKG Reviewed by me: Yes (Sinus rhythm on telemetry) Hospitalist ROS - Review of Systems ROS unobtainable: due to mental status - Medication Medications: Active Medications Generic Name Dose Route Start Last Admin Trade Name Freq PRN Reason Stop Dose Admin Sodium Bicarbonate 150 meq/ 1,150 mls @ 100 mls/hr 12/06/19 10:30 12/06/19 12:49 Dextrose/Water IV 1,150 mls .[id number] RITA Administration Pantoprazole Sodium 40 mg 12/05/19 09:00 12/06/19 08:32 Pantoprazole 40 Mg Vial IVP 40 mg BID RITA Administration Saccharomyces Boulardii 250 mg 12/05/19 09:00 12/06/19 08:33 Saccharomyces Boulardii 250 Mg Cap PO Not Given DAILY RITA - Exam General Appearance: NAD Heart: RRR, no gallops, no rubs, normal peripheral pulses Respiratory: no wheezes, no rales, normal chest expansion, rhonchi Gastrointestinal: soft, non-tender, non-distended, no guarding, no rigidity Extremities: no cyanosis, no clubbing, no edema Neurological: no new deficit Musculoskeletal: generalized weakness Hosp A/P - Plan DVT proph w/SCDs Toxic metabolic encephalopathyPOA Sepsis due to UTI/POA Acute kidney injury on CKD stage IIIPOA GI bleeding with acute blood loss anemiaPOA Morbid obesity with a BMI of 40.5 Dementia Diverticulosis Hypertension Hypothyroidism Coronary artery disease History of constipation with fecal impaction Plan: Patient had a temperature of 100.8 this morning. Will discontinue ceftriaxone with Flagyl. Start meropenem. Change IV fluid to dextrose with sodium bicarbonate. Renal function worsening. Replace magnesium. Restart levothyroxine. Losartan on hold. CT scan of the abdomen negative for obstru ctive uropathy. Change insulin sliding scale to moderate. Check Doppler to rule out DVT. Clear liquid diet. Plan discussed with the daughter over the phone. Physical therapy/Occupational Therapy/speech therapy evaluation. DNR verified with daughter who is the DPOA.
[2019-12-06] MEDS: MEROPENEM 1 GM/50 ML 1 GM in Premix Bag 1 BAG IVPB SCH (15:55)
--- NOTE | 2019-12-06 15:58 | ULT ---
BILATERAL LOWER EXTREMITY VENOUS DOPPLER ULTRASOUND: 12/06/19 HISTORY: Bilateral lower extremity edema and immobilization. TECHNIQUE: Malagon scale, color flow and spectral Doppler imaging of the deep venous systems of the lower extremiti es is performed bilaterally. FINDINGS: Exam was limited due to patient's inability to stay still. There is good flow, compression and augmentation noted in the visualized portions of the common femor al, femoral, deep femoral, popliteal, posterior tibial and greater saphenous veins on either side. IMPRESSION: No evidence of DVT in either lower extremity. POS: [facility]
[2019-12-06] MEDS ORDERED: Iron, Sodium Ferric Gluconate 250 MG in Sodium Chloride 0.9% 100 ML IVPB SCH (16:00)
--- NOTE | 2019-12-06 19:16 | PRG ---
DATE OF SERVICE: 12/06/2019 REASON FOR CONSULTATION: Hematochezia, anemia. SUBJECTIVE: Per nursing staff the patient did not have any additional episodes of hematochezia today nor has she had any episodes of melena or hematemesis. She did undergo an ultrasound of her lower extremities today due to increased swelling with results still pending at this time. Otherwise, the patient continues to have altered mental status consistent with baseline dementia and was relatively unable to provide meaningful answers to interview, although she currently denies any nausea, vomiting, or the abdominal pain. OBJECTIVE: VITAL SIGNS: Temperature 98.5, pulse 61, blood pressure 159/81, respiratory rate 16, saturating 99% on 2 L nasal cannula. GENERAL: The patient is lying in bed, in no acute distress. Alert and oriented x1. CARDIOVASCULAR: Regular rate and rhythm. RESPIRATORY: Clear to auscultation bilaterally. ABDOMEN: Normoactive bowel sounds, soft, nondistended, mild tenderness to palpation in the midepigastric and right lower quadrants. EXTREMITIES: Significant nonpitting edema noted in the bilateral lower extremities. LABORATORY DATA: CBC with a white blood cell count of 13.2, hemoglobin 9.4, hematocrit 28, platelets 231. Chemistry with a sodium of 141, potassium 4.4, chloride 114, CO2 18, BUN 50, creatinine 2.95, glucose 188, AST 12, ALT 10, alkaline phosphatase 69, total bilirubin 0.4. IMAGING DATA: No current GI imaging is available for review. ASSESSMENT AND PLAN: The patient is a 79-year-old female with past medical history of coronary artery disease, status post pacemaker placement, diabetes, hypertension hyperlipidemia, morbid obesity, chronic kidney disease stage 3 with neuropathy, depression, anxiety, history of colonic polyps and [id number] dementia presenting with complaints of hematochezia. The patient was admitted to the hospital from the halfway with complaints of hematochezia, where she was noted to have approximately 3 episodes of bright red blood per rectum. However, during the course of this hospitalization, she has only had 1 blood tinged mucoid stool with no further episodes of hematochezia today. On review of her chart, the patient was admitted to the hospital in September for fecal impaction and responded well to laxative administration and digital stimulation. Colonoscopy performed in May 2015 showed the presence of a single inflammatory polyp in addition to [id number] diverticulosis, but no mention of hemorrhoids during that examination. At this time, the patient's severe dementia does provide a significant barrier in order to proceeding with colonoscopy for further evaluation. Upon conferring with the patient's medical power of deputy attorney general (Elina Ford [phone]). She states that during the last colonoscopy she had a very difficult time with both the prep and the post procedure to the point where "I vow that she would never have a colonoscopy again." At this time, the patient does have a slightly downtrending H and H, but no further evidence of hematochezia per nursing staff on physical examination making the likelihood of possible stercoral colitis and mild inflammation associated with that more likely. Differential could also include hemorrhoidal bleeding, arteriovenous malformation, Dieulafoy lesion, diverticular bleeding (less likely) and/or GI neoplasm (much less likely given the relatively normal colonoscopy 4 years ago). At this time, I do not think there is significant urgency for endoscopic evaluation and per discussion with the medical power of deputy attorney general endoscopic intervention is not preferred. RECOMMENDATIONS: 1. I would continue to trend the patient's hemoglobin and hematocrit and transfuse as necessary to maintain a hemoglobin and hematocrit of 7/21. 2. Continue to monitor clinically for signs of active gastrointestinal bleeding. 3. If the patient continues to have significantly downtrending hemoglobin and hematocrit and evidence of hematochezia, colonoscopy could be reconsidered, but would confer with medical power of deputy attorney general prior to proceeding with it. 4. Given the patient's altered mental status if colonoscopy is attempted, she would most likely need placement of a nasogastric tube for administration of the colonoscopy prep. We will continue to follow. Please call with any questions. Job ID: [id number]
[2019-12-06] MEDS: Polyethylene Glycol 3350 17 GM Packet PO SCH (21:02)
[2019-12-07] MEDS: MEROPENEM 1 GM/50 ML 1 GM in Premix Bag 1 BAG IVPB SCH ×2 (02:52→15:47)
[2019-12-07 04:33] LABS: #Eosinphils 0.3 thou/uL (0.0-0.7); #Lymphocytes 1.7 thou/uL (1.20-3.40); #Monocytes 0.8 thou/uL (0.11-0.59); #Neutrophils 7.9 thou/uL (1.40-6.50); %Basophils 0.2 % (0.0-1.0); %Eosinophils 2.9 % (0.0-10.0); %Lymphocytes 15.7 % (21.0-51.0); %Monocytes 7.8 % (0.0-10.0); %Neutrophils 73.4 % (42.0-75.0); Hemoglobin 9.3 g/dL (12.0-16.0); Mean Corpuscular Hemoglobin 32.3 pg (27.0-31.0); Mean Corpuscular Volume 95.1 fL (78.0-98.0); Mean Platelet Volume 7.8 fL (7.4-10.4); Platelet Count 234 thou/uL (130-400); RBC Distribution Width 12.2 % (11.5-14.5); Red Blood Cell (RBC) Count 2.88 mill/uL (4.20-5.40); White Blood Cell (WBC) Count 10.8 thou/uL (4.8-10.8)
[2019-12-07] MEDS: Levothyroxine Sodium 125 MCG TAB PO SCH (04:46)
[2019-12-07 04:55] LABS: Phosphorus 3.3 mg/dL (2.3-4.7)
[2019-12-07 05:00] LABS: ALT (SGPT) 9 U/L (8-55); AST (SGOT) 10 U/L (5-34); Albumin 2.8 g/dL (3.4-4.8); Alkaline Phosphatase 65 U/L (40-110); Anion Gap 13 mmol/L (10-20); BUN (Urea Nitrogen) 42 mg/dL (9.8-20.1); Bilirubin, Total 0.4 mg/dL (0.2-1.2); Calc. Creatinine Clearance 37 mL/min (70-130); Calcium 8.7 mg/dL (7.8-10.44); Carbon Dioxide 23 mmol/L (23-31); Chloride 111 mmol/L (98-107); Estimated GFR-MDRD 21; Globulin 2.7 g/dL (2.4-3.5); Glucose 169 mg/dL (83-110); Potassium 3.9 mmol/L (3.5-5.1); Protein, Total 5.5 g/dL (6.0-8.3); Sodium 143 mmol/L (136-145)
[2019-12-07] MEDS: Sodium Bicarbonate 150 MEQ in Dextrose 5% in Water 1,000 ML IV SCH ×4 (06:06→20:07)
[2019-12-07] MEDS: Saccharomyces boulardii 250 MG CAP PO SCH (09:33)
[2019-12-07] MEDS: Pantoprazole 40 MG VIAL IVP SCH ×2 (09:33→20:07)
[2019-12-07] MEDS: Polyethylene Glycol 3350 17 GM Packet PO SCH ×2 (09:33→20:10)
[2019-12-07] MEDS: HumaLOG 300 UNITS/3 ML VIAL SC PRN (11:39)
--- NOTE | 2019-12-07 12:00 | PRG ---
DATE OF SERVICE: 12/07/2019 SUBJECTIVE: Ms. Ford is really not with complaints, but she is demented. Talking with her nurse she has had no bleeding or emesis. She is taking a little bit p.o. Dr. Cardoza talked to the patient's daughter yesterday who absolutely does not want to have a repeat colonoscopy, I think which is very reasonable. OBJECTIVE: VITAL SIGNS: Temperature is 98, pulse 61, blood pressure 132/63. ABDOMEN: Soft and nontender. There is no rebound. There is no guarding. LABORATORY DATA: Hemoglobin is 9.3, white count 10, platelet count 234. Sodium 143, potassium 3.9, BUN and creatinine are 42 and 2.36. ASSESSMENT: 1. Segmental colitis. This could be likely re-ischemic previous stercoral ulcers. The patient has had a previous colonoscopy in 05/2015 and inflammatory polyp removed at that time as well. 2. No signs of overt abdominal pain or infection at this point in time. RECOMMENDATIONS: 1. Advance diet as tolerated. 2. Bowel regimen to prevent recurrent fecal impactions. 3. We will sign off at this point in time. If I can be of any further assistance in the patient's care, please do not hesitate to contact me. Job ID: [id number]
--- NOTE | 2019-12-07 19:12 | PDOC.HOSPP ---
- Subjective Encounter Date: 12/07/19 Encounter Time: 12:30 Subjective: Patient seen and examined for encephalopathy/sepsis. Hemodynamically stable. No new overnight issues. - Objective Vital Signs & Weight: Vital Signs (12 hours) Temp Pulse Pulse Pulse Resp BP BP 12/07/19 17:55 97.5 F L 61 16 12/07/19 16:57 98.4 F 62 20 12/07/19 12:00 97.9 F 60 19 12/07/19 09:35 60 61 167/77 H 132/63 12/07/19 08:50 98.7 F 61 19 BP BP Pulse Ox Pulse Ox Pulse Ox 12/07/19 17:55 168/82 H 98 12/07/19 16:57 152/68 H 98 12/07/19 12:00 136/65 93 L 12/07/19 09:35 93 L 90 L 12/07/19 08:50 132/63 93 L Weight Weight 249 lb 3.2 oz I&O: 12/06/19 12/07/19 12/08/19 06:59 06:59 06:59 Intake Total 0 1203 Output Total 200 100 Balance -200 1103 Result Diagrams: 12/08/19 05:45 12/08/19 05:45 Additional Labs: Accuchecks 12/07/19 12/07/19 12/07/19 16:14 10:55 02:02 POC Glucose 156 H 251 H 158 H 12/06/19 20:36 POC Glucose 220 H Abnormal Lab Results - Last 48 hrs 12/06/19 10:16: Troponin I 0.032 H 12/06/19 10:30: Bicarbonate Actual 21.4 L, ABG pH 7.34 L, ABG pO2 59.9 L*, ABG O2 Sat (Measured) 91.3 L, ABG O2 Content 14.8 L, ABG Base Excess -4.1 L, ABG Hematocrit 34.0 L, ABG Hemoglobin 11.6 L, ABG Oxyhemoglobin 90.5 L, ABG Deox yhemoglobin 8.6 H, A-a O2 Gradient 38.455 H, Chloride 113 H 12/07/19 04:08: Chloride 111 H, BUN 42 H, Creatinine 2.26 H, Serum Total Protein 5.5 L, Albumin 2.8 L, Albumin/Globulin Ratio 1.0 L 12/07/19 04:08: RBC 2.88 L, Hgb 9.3 L, Hct 27.4 L, MCH 32.3 H, Lymphocytes % 15.7 L, Neutrophils # 7.9 H, Monocytes # 0.8 H 12/07/19 04:08: C-Reactive Protein 15.24 H Microbiology - Entire Visit 12/05/19 15:08 Urine clean catch Urine Culture - Preliminary Escherichia coli 12/04/19 23:03 Stool - Pending Stool Occult Blood (ALBERTO) - Final EKG Reviewed by me: Yes (Paced rhythm on telemetry) Hospitalist ROS - Review of Systems Cardiovascular: denies: chest pain, palpitations, orthopnea, paroxysmal noc. dyspnea, edema, light headedness, other Gastrointestinal: denies: nausea, vomiting, abdominal pain, diarrhea, constipation, melena, hematochezia, other - Medication Medications: Active Medications Generic Name Dose Route Start Last Admin Trade Name Freq PRN Reason Stop Dose Admin Meropenem 1 gm/ Device 50 mls @ 100 mls/hr 12/06/19 14:00 12/07/19 15:47 IVPB 50 mls 0200,1400 RITA Administration Sodium Bicarbonate 150 meq/ 1,150 mls @ 75 mls/hr 12/07/19 13:22 12/07/19 16:53 Dextrose/Water IV 1,150 mls .[id number] RITA Administration Insulin Human Lispro 0 units 12/06/19 15:09 12/07/19 11:39 Humalog 300 Units/3 Ml Vial SC 6 unit .MODERATE SLIDING SC PRN Administration Moderate Correctional Scale Levothyroxine Sodium 125 mcg 12/07/19 06:00 12/07/19 04:46 Levothyroxine Sodium 125 Mcg Tab PO Not Given 0600 RITA Pantoprazole Sodium 40 mg 12/05/19 09:00 12/07/19 09:33 Pantoprazole 40 Mg Vial IVP 40 mg BID RITA Administration Polyethylene Glycol 17 gm 12/06/19 21:00 12/07/19 09:33 Polyethylene Glycol 3350 17 Gm Packet PO Not Given BID RITA Saccharomyces Boulardii 250 mg 12/05/19 09:00 12/07/19 09:33 Saccharomyces Boulardii 250 Mg Cap PO Not Given DAILY RITA - Exam General Appearance: NAD Heart: RRR, no gallops Respiratory: no wheezes, no ronchi Gastrointestinal: soft, no guarding, no rigidity Gastrointestinal - other findings: Minimal minimal right lower quadrant tenderness Extremities: no cyanosis, no clubbing Hosp A/P - Plan DVT proph w/SCDs Toxic metabolic encephalopathy Sepsis due to UTI/ischemic colitisPOA Acute kidney injury on CKD stage III GI bleeding with acute blood loss anemiaprobably due to ischemic colitis Morbid obesity with a BMI of 40.5 Dementia Diverticulosis Hypertension Hypothyroidism Coronary artery disease History of constipation with fecal impaction Plan: Patient remained hemodynamically stable. Probably has ischemic colitis per GI. Continue IV meropenem. WBC count at 10.8 today. Continue clear liquid diet urine culture positive for E. coli resistant to quinolones. Hemoglobin stable. Recheck labs in a.m. Renal function improving with gentle IV hydration. Will transfer to medical.
[2019-12-08] MEDS: MEROPENEM 1 GM/50 ML 1 GM in Premix Bag 1 BAG IVPB SCH ×3 (01:34→20:13)
[2019-12-08] MEDS: Sodium Bicarbonate 150 MEQ in Dextrose 5% in Water 1,000 ML IV SCH ×2 (04:25→13:14)
[2019-12-08] MEDS: Levothyroxine Sodium 125 MCG TAB PO SCH (05:28)
[2019-12-08 06:13] LABS: #Eosinphils 0.3 thou/uL (0.0-0.7); #Lymphocytes 1.7 thou/uL (1.20-3.40); #Monocytes 0.6 thou/uL (0.11-0.59); #Neutrophils 6.1 thou/uL (1.40-6.50); %Basophils 0.5 % (0.0-1.0); %Eosinophils 3.9 % (0.0-10.0); %Lymphocytes 19.2 % (21.0-51.0); %Monocytes 6.8 % (0.0-10.0); %Neutrophils 69.6 % (42.0-75.0); Hemoglobin 9.9 g/dL (12.0-16.0); Mean Corpuscular HGB CONC 33.8 g/dL (32.0-36.0); Mean Corpuscular Volume 94.9 fL (78.0-98.0); Mean Platelet Volume 7.6 fL (7.4-10.4); Platelet Count 252 thou/uL (130-400); RBC Distribution Width 11.8 % (11.5-14.5); Red Blood Cell (RBC) Count 3.09 mill/uL (4.20-5.40); White Blood Cell (WBC) Count 8.8 thou/uL (4.8-10.8)
[2019-12-08 06:34] LABS: ALT (SGPT) 8 U/L (8-55); AST (SGOT) 9 U/L (5-34); Alkaline Phosphatase 67 U/L (40-110); Anion Gap 12 mmol/L (10-20); BUN (Urea Nitrogen) 26 mg/dL (9.8-20.1); Bilirubin, Total 0.4 mg/dL (0.2-1.2); Calc. Creatinine Clearance 46 mL/min (70-130); Calcium 8.9 mg/dL (7.8-10.44); Carbon Dioxide 30 mmol/L (23-31); Chloride 106 mmol/L (98-107); Estimated GFR-MDRD 29; Glucose 177 mg/dL (83-110); Magnesium 1.7 mg/dL (1.6-2.6); Potassium 3.8 mmol/L (3.5-5.1); Sodium 144 mmol/L (136-145)
[2019-12-08 06:41] LABS: Phosphorus 2.3 mg/dL (2.3-4.7)
[2019-12-08] MEDS ORDERED: Magnesium Sulfate 2 GM in Sodium Chloride 0.9% 100 ML IVPB SCH (07:15)
[2019-12-08] MEDS ORDERED: Magnesium 2 GM/50 ML 2 GM in Premix Bag 1 BAG IVPB SCH (07:15)
[2019-12-08] MEDS: Heparin 5,000 UNITS/ML VIAL SC SCH ×2 (08:29→20:21)
[2019-12-08] MEDS: Pantoprazole 40 MG VIAL IVP SCH ×2 (08:29→20:13)
[2019-12-08] MEDS: Saccharomyces boulardii 250 MG CAP PO SCH (08:29)
[2019-12-08] MEDS: Polyethylene Glycol 3350 17 GM Packet PO SCH ×2 (08:29→20:14)
[2019-12-08] MEDS: HumaLOG 300 UNITS/3 ML VIAL SC PRN ×2 (13:17→16:55)
--- NOTE | 2019-12-08 22:42 | PDOC.HOSPP ---
- Subjective Encounter Date: 12/08/19 Encounter Time: 16:30 Subjective: Patient seen and examined for ischemic colitis with UTI. No new events. Poor appetite per RN. - Objective Vital Signs & Weight: Vital Signs (12 hours) Temp Pulse Resp BP Pulse Ox 12/08/19 19:55 98 12/08/19 19:45 99.4 F 60 16 155/78 H 97 12/08/19 17:56 98.7 F 62 18 173/86 H 95 12/08/19 12:00 98.6 F 59 L 18 162/81 H 95 Weight Weight 235 lb 3 oz I&O: 12/07/19 12/08/19 12/09/19 06:59 06:59 06:59 Intake Total 1203 1330 1300 Output Total 789 867 9267 Balance 1103 1030 300 Result Diagrams: 12/08/19 05:45 12/08/19 05:45 Additional Labs: Accuchecks 12/08/19 04:28 POC Glucose 161 H Hospitalist ROS - Review of Systems Cardiovascular: denies: chest pain, palpitations, orthopnea, paroxysmal noc. dyspnea, edema, light headedness, other Gastrointestinal: denies: nausea, vomiting, abdominal pain, diarrhea, constipation, melena, hematochezia, other - Medication Medications: Active Medications Generic Name Dose Route Start Last Admin Trade Name Freq PRN Reason Stop Dose Admin Heparin Sodium (Porcine) 5,000 units 12/08/19 09:00 12/08/19 20:21 Heparin 5,000 Units/Ml Vial SC 5,000 units BID RITA Administration Sodium Bicarbonate 150 meq/ 1,150 mls @ 75 mls/hr 12/07/19 13:22 12/08/19 13:14 Dextrose/Water IV 1,150 mls .[id number] RITA Administration Meropenem 1 gm/ Device 50 mls @ 100 mls/hr 12/08/19 21:00 12/08/19 20:13 IVPB 50 mls 0900,2100 RITA Administration Insulin Human Lispro 0 units 12/06/19 15:09 12/08/19 16:55 Humalog 300 Units/3 Ml Vial SC 2 unit .MODERATE SLIDING SC PRN Administration Moderate Correctional Scale Levothyroxine Sodium 125 mcg 12/07/19 06:00 12/08/19 05:28 Levothyroxine Sodium 125 Mcg Tab PO 125 mcg 0600 RITA Administration Pantoprazole Sodium 40 mg 12/05/19 09:00 12/08/19 20:13 Pantoprazole 40 Mg Vial IVP 40 mg BID RITA Administration Polyethylene Glycol 17 gm 12/06/19 21:00 12/08/19 20:14 Polyethylene Glycol 3350 17 Gm Packet PO Not Given BID RITA Saccharomyces Boulardii 250 mg 12/05/19 09:00 12/08/19 08:29 Saccharomyces Boulardii 250 Mg Cap PO 250 mg DAILY RITA Administration - Exam General Appearance: NAD Neck: supple, no JVD Heart: no gallops, no rubs Respiratory: no wheezes, no rales Gastrointestinal: soft, non-tender, normal bowel sounds Extremities: no cyanosis Hosp A/P - Plan DVT proph w/SCDs Toxic metabolic encephalopathy Sepsis due to UTI/ischemic colitis Acute kidney injury on CKD stage III GI bleeding with acute blood loss anemiaprobably due to ischemic colitis Morbid obesity with a BMI of 40.5 Dementia Diverticulosis Hypertension Hypothyroidism Coronary artery disease History of constipation with fecal impaction Plan: Continue IV meropenem. Discontinue bicarb drip. Start IV fluids at KVO. Replace magnesium. Change PPI to po. Discharge planning to [facility] in a.m. if stable. Continue other medications. Advance diet
[2019-12-08] MEDS ORDERED: 1/2 NS w/KCL 20 mEq 1,000 ML IV SCH (22:45)
[2019-12-09] MEDS: Levothyroxine Sodium 125 MCG TAB PO SCH (05:30)
[2019-12-09 07:27] VITALS: TEMP 98.6
[2019-12-09] MEDS: MEROPENEM 1 GM/50 ML 1 GM in Premix Bag 1 BAG IVPB SCH (08:16)
[2019-12-09] MEDS: Polyethylene Glycol 3350 17 GM Packet PO SCH (08:17)
[2019-12-09] MEDS: Heparin 5,000 UNITS/ML VIAL SC SCH (08:18)
[2019-12-09] MEDS: Saccharomyces boulardii 250 MG CAP PO SCH (08:18)
[2019-12-09] MEDS ORDERED: Pantoprazole 40 MG GRANULES PACKET PO SCH (09:00)
[2019-12-09 16:07] VITALS: BP 167/72
--- NOTE | 2019-12-09 20:57 | PDOC.DS.DS ---
Provider - Provider Date of Admission: 12/05/19 00:44 Date of Discharge: 12/09/19 Admitting Provider: Harpreet Mccauley MD Consultations: Gastroentrology Primary Care Physician: NO PCP PROVIDER Course - Hospital Course Hospital Course: Patient is a 79-year-old female with coronary artery disease, diabetes mellitus type II and hypertension currently residing [facility] presented to the emergency room on 12/03 with 3 episodes of rectal bleeding. She also had some abdominal pain. The CT scan of the abdomen in the emergency room showed changes concerning for ischemic colitis. She was started on IV ceftriaxone and Flagyl. Her WBC count maximum was 16,000 that gradually improved. Her hemoglobin on admission was 12.8 that dropped to 9.3. Her hemoglobin stabilized around 9. Patient was evaluated by gastroenterology service. She was initially placed on clear liquid diet that was gradually advanced. A white blood cell counts have normalized without any left shift. Patient also had acute kidney injury with a maximum creatinine of 2.95 that improved to 1.70 with IV hydration. She also had acute metabolic acidosis requiring sodium bicarbonate infusion. Patient also was found to have E. coli UTI and will complete oral antibiotics. Plan was discussed with patient's primary care physician at the retirement who agrees with the above plan of care. I attempted to call the family with no answer. Time coordinating the discharge of this patient was 36 minutes. Final diagnoses: Toxic metabolic encephalopathy Sepsis due to UTI/ischemic colitis Acute kidney injury on CKD stage III GI bleeding with acute blood loss anemiaprobably due to ischemic colitis Morbid obesity with a BMI of 40.5 Dementia Diverticulosis Hypertension Hypothyroidism Coronary artery disease History of constipation with fecal impaction Resuscitation Status: 12/05/19 04:44 Resuscitation Status Routine Resuscitation Status: DNAR: NO Resuscitation Discussed with: has a paper chart OOH DNR. as per Janey Carnes - Labs Lab Results: 12/08/19 05:45 12/08/19 05:45 Abnormal Lab Results - Last 48 hrs 12/08/19 05:45: BUN 26 H, Creatinine 1.70 H, Albumin 3.0 L, Albumin/Globulin Ratio 1.0 L 12/08/19 05:45: RBC 3.09 L, Hgb 9.9 L, Hct 29.3 L, MCH 32.0 H, Lymphocytes % 19.2 L, Monocytes # 0.6 H Microbiology - Entire Visit 12/05/19 15:08 Urine clean catch Urine Culture - Final Escherichia coli 12/04/19 23:03 Stool - Pending Stool Occult Blood (ALBERTO) - Final - Physical Exam Vitals: Vital Signs (12 hours) Temp Pulse Resp BP Pulse Ox 12/09/19 16:00 98.6 F 61 18 167/72 H 95 12/09/19 09:06 170/83 H Weight Weight 248 lb 6 oz Physical Exam: The patient was seen and examined on the day of discharge. Problem - Time spent with Patient (mins): 36 Plan - Discharge Medications Prescriptions: Memantine HCl 5 mg PO DAILY #30 tablet Cefdinir [Omnicef] 300 mg PO DAILY #2 cap Home Medications: Medication Instructions Recorded Confirmed Type Levothyroxine Sodium [Tirosint] 125 mcg PO DAILY 05/23/15 12/05/19 History Simvastatin [Zocor] 20 mg PO HS 05/23/15 12/05/19 History Amlodipine [Norvasc] 5 mg PO DAILY 08/08/18 12/05/19 History Docusate [Colace] 100 mg PO BID 09/28/18 12/05/19 History cloNIDine [Catapres] 0.1 mg PO Q6H PRN tab 10/07/18 12/05/19 Rx Lactobacillus [Floranex] 1 tab PO DAILY 12/05/19 12/05/19 History Acetaminophen [Tylenol Regular 650 mg PO Q4H PRN tab 12/09/19 Rx Strength] Cefdinir [Omnicef] 300 mg PO DAILY #2 cap 12/09/19 Rx Memantine HCl 5 mg PO DAILY #30 tablet 12/09/19 Rx Pantoprazole [Protonix] 40 mg PO DAILY pk 12/09/19 Rx Saccharomyces boulardii [Florastor] 250 mg PO DAILY cap 12/09/19 Rx Allergies: hydrocodone Allergy (Verified 09/22/19 01:28) lose memory levofloxacin [From Levaquin] Allergy (Verified 09/22/19 01:28) Itching morphine Allergy (Verified 09/22/19 01:28) itching - Discharge Instructions Discharge Instructions:: Follow up with Dr Chavez at [facility] Basic metabolic profile after 1 week Ensure 3 times a day Calorie counting - Follow up Plan Referrals: PROVIDER,NO PCP [Primary Care Provider] - Disposition: [facility]IV[facility] Quality - Care Measures CORE MEASURES:: N/A
== END 2019-12-09 16:47 | DRG 871 ==
LOC: ERS 22:09 → 2NO 12-05 00:44 → T4-A 12-07 17:58
PROVIDERS: ADMIT Internal Medicine; ATTEND Internal Medicine
DX: A41.9 Sepsis, unspecified organism (principal); G92 Toxic encephalopathy; N17.9 Acute kidney failure, unspecified; Z68.41 Body mass index [BMI] 40.0-44.9, adult; N39.0 Urinary tract infection, site not specified; Z66 Do not resuscitate; D62 Acute posthemorrhagic anemia; K92.2 Gastrointestinal hemorrhage, unspecified; K55.9 Vascular disorder of intestine, unspecified; I25.10 Atherosclerotic heart disease of native coronary artery without angina pectoris; E03.9 Hypothyroidism, unspecified; E78.5 Hyperlipidemia, unspecified; F03.90 Unspecified dementia, unspecified severity, without behavioral disturbance, psychotic disturbance, mood disturbance, and anxiety; N18.30 Chronic kidney disease, stage 3 unspecified; E66.01 Morbid (severe) obesity due to excess calories; I12.9 Hypertensive chronic kidney disease with stage 1 through stage 4 chronic kidney disease, or unspecified chronic kidney disease; E11.22 Type 2 diabetes mellitus with diabetic chronic kidney disease; B96.20 Unspecified Escherichia coli [E. coli] as the cause of diseases classified elsewhere; K57.90 Diverticulosis of intestine, part unspecified, without perforation or abscess without bleeding; E11.40 Type 2 diabetes mellitus with diabetic neuropathy, unspecified; Z96.653 Presence of artificial knee joint, bilateral; F41.9 Anxiety disorder, unspecified; F32.9 Major depressive disorder, single episode, unspecified; Z95.0 Presence of cardiac pacemaker; Z88.8 Allergy status to other drugs, medicaments and biological substances; Z79.899 Other long term (current) drug therapy; Z98.890 Other specified postprocedural states; Z20.828 Contact with and (suspected) exposure to other viral communicable diseases
CPT/HCPCS: 36415; 36416; 70450; 71045; 74176; 80053; 81001; 82274; 82728; 82805; 82947; 83540; 83550; 83605; 83690; 83735; 84100; 84484; 85025; 85046; 85610; 85730; 86140; 86850; 86900; 86901; 87077; 87086; 87186; 87635; 93970; 96365; C9113; J0696; J1644; J2185; J2543; J2916; J3475; J3480; J3490; J7070; U0003

== ENCOUNTER 2020-03-01 02:47 | Emergency (ER) | payer MEDICARE, OTHER ==
[2020-03-01 03:46] LABS: ALT (SGPT) 9 U/L (8-55); AST (SGOT) 12 U/L (5-34); Albumin 3.3 g/dL (3.4-4.8); Alkaline Phosphatase 81 U/L (40-110); Anion Gap 16 mmol/L (10-20); BUN (Urea Nitrogen) 44 mg/dL (9.8-20.1); Bilirubin, Total 0.5 mg/dL (0.2-1.2); Calc. Creatinine Clearance 0 mL/min (70-130); Calcium 9.1 mg/dL (7.8-10.44); Carbon Dioxide 18 mmol/L (23-31); Chloride 108 mmol/L (98-107); Globulin 3.2 g/dL (2.4-3.5); Glucose 183 mg/dL (83-110); Potassium 5.2 mmol/L (3.5-5.1); Protein, Total 6.5 g/dL (6.0-8.3); Sodium 137 mmol/L (136-145)
[2020-03-01 04:42] LABS: #Basophils 0.1 thou/uL (0.0-0.2); #Eosinphils 0.1 thou/uL (0.0-0.7); #Lymphocytes 3.2 thou/uL (1.20-3.40); #Monocytes 1.4 thou/uL (0.11-0.59); %Basophils 0.3 % (0.0-1.0); %Eosinophils 0.7 % (0.0-10.0); %Lymphocytes 18.9 % (21.0-51.0); %Monocytes 8.4 % (0.0-10.0); %Neutrophils 71.6 % (42.0-75.0); Hemoglobin 12.6 g/dL (12.0-16.0); Mean Corpuscular HGB CONC 32.7 g/dL (32.0-36.0); Mean Corpuscular Hemoglobin 30.8 pg (27.0-31.0); Mean Platelet Volume 7.6 fL (7.4-10.4); Platelet Count 289 thou/uL (130-400); Red Blood Cell (RBC) Count 4.09 mill/uL (4.20-5.40); White Blood Cell (WBC) Count 16.7 thou/uL (4.8-10.8)
[2020-03-01 04:52] LABS: INR-International Normal Ratio 1.1; PTT 27.4 sec (22.9-36.1); Prothrombin Time 14.2 sec (12.0-14.7)
--- NOTE | 2020-03-01 07:53 | CT ---
PRELIMINARY REPORT/[facility]/EMERGENCY AFTER HOURS PROCEDURE: EXAM: CT Abdomen and Pelvis Without Intravenous Contrast CLINICAL HISTORY: SENT FROM [place] FOR RECTAL BLEEDING TECHNIQUE: Axial computed tomography images of the abdomen and pelvis without intravenous contrast. CONTRAST: None. COMPARISON: None provided. FINDINGS: LUNG BASES: No basilar airspace consolidation or pleural effusion. LIVER: Unremarkable. GALLBLADDER AND BILE DUCTS: Status post cholecystectomy. No ductal dilation. PANCREAS: Unremarkable. SPLEEN: Unremarkable. ADRENAL GLANDS: Unremarkable. KIDNEYS, URETERS, AND BLADDER: Punctate stone in the lower pole of the right kidney. Mild bilateral renal parenchymal thinning. No hydronephrosis. No ureteral or bladder calculi. STOMACH AND BOWEL: No obstruction. No definite wall thickening, however evaluation is limited given t he lack of intravenous and enteric contrast. There is diffuse colonic diverticulosis with pericolonic stranding in the sigmoid colon. APPENDIX: No CT evidence for appendicitis. PERITONEUM: Trace free fluid in the pelvis without significant ascites. No free air. LYMPH NODES: No lymphadenopathy. REPRODUCTIVE: Unremarkable as visualized. VASCULATURE: No aortic aneurysm. ABDOMINAL WALL AND SOFT TISSUES: Unremarkable. Spinal stimulator device terminating outside the field of view in the midportion of the thoracic spine. BONES: No fracture or suspicious osseous abnormality. Age-appropriate degenerative changes in the spi ne. IMPRESSION: 1. Findings suspicious for acute uncomplicated diverticulitis involving the sigmoid colon. Please n ote that this examination is limited given the lack of intravenous and enteric contrast and other etiologies to include malignancy cannot be excluded as it could have a similar appearance. 2. Small nonobstructing right renal calculi. 3. No other acute or concerning findings in the abdomen or pelvis. ELECTRONICALLY SIGNED BY: Bam Bruce DO Mar 01, 2020 4:55:29 AM FIRMWARE ARCHITECT FINAL REPORT EMERGENT AFTER HOURS NONCONTRAST CT ABDOMEN AND PELVIS: HISTORY: Rectal bleeding. COMPARISON: 12/04/2019. IMPRESSION: 1. Wall thickening involving the sigmoid colon with wall thickening appearing to extend to the rectum . There are colonic diverticuli seen in this region, and findings could be related to diverticulitis. However, given longer segment of involvement of the colon on this nonenhanced CT exam , colitis related to infectious or inflammatory process is a possibility. There is mild pericolonic inflammatory stranding present. No free intraperitoneal gas is seen, and there is no fluid collection seen to suggest an abscess. Followup evaluation is recommended to ensure resolution of the wall thickening. 2. Nonobstructing 2 mm calculus midportion right kidney. 3. Vascular calcifications. 4. Cholecystectomy. 5. Mild cardiomegaly. 6. Findings are in agreement with preliminary report by [facility]. Transcribed Date/Time: 03/01/2020 8:07 AM
== END 2020-03-01 05:41 | disposition home or self-care (01) ==
LOC: ERS 02:47
DX: K57.32 Diverticulitis of large intestine without perforation or abscess without bleeding (principal); E03.9 Hypothyroidism, unspecified; E78.5 Hyperlipidemia, unspecified; E66.9 Obesity, unspecified; I12.9 Hypertensive chronic kidney disease with stage 1 through stage 4 chronic kidney disease, or unspecified chronic kidney disease; E10.22 Type 1 diabetes mellitus with diabetic chronic kidney disease; N18.31 Chronic kidney disease, stage 3a; E10.40 Type 1 diabetes mellitus with diabetic neuropathy, unspecified; Z79.899 Other long term (current) drug therapy
CPT/HCPCS: 36415; 74176; 80053; 83605; 85025; 85610; 85730; 99283

== ENCOUNTER 2020-11-22 09:18 | Inpatient (IN) | payer MEDICARE, OTHER, MEDICAID ==
[2020-11-22] MEDS ORDERED: cefTRIAXone\\ROCEPHIN 2 GM VIAL ONE (10:07)
[2020-11-22 10:16] LABS: Bacteria/HPF 3+ HPF (None Seen); Bilirubin Negative (Negative); Blood, Urine Negative (Negative); Clarity Turbid (Clear); Glucose, Urine (Dipstick) 30 mg/dL (Negative); Ketone, Urine Negative (Negative); Leukocyte 250 Leu/uL (Negative); Nitrite 2+ (Negative); Protein, Urine (Dipstick) 100 mg/dL (Neg-Trace); RBC/HPF 0-3 HPF (0-3); Specific Gravity, Urine 1.017 (1.002-1.036); Urobilinogen Normal mg/dL (Less than 2); WBC/HPF 21-50 HPF (0-3); pH, Urine 6.5 (5.0-9.0)
[2020-11-22 10:47] LABS: Band 3 % (5-11); Eosinophils 1 % (0-10); Hemoglobin 13.1 g/dL (12.0-16.0); Lymphocytes 9 % (21-51); MDiff Complete? YES; Mean Corpuscular HGB CONC 32.3 g/dL (32.0-36.0); Mean Corpuscular Hemoglobin 30.8 pg (27.0-31.0); Mean Corpuscular Volume 95.4 fL (78.0-98.0); Mean Platelet Volume 7.7 fL (7.4-10.4); Monocytes 3 % (0-10); Neutrophil 84 % (42-75); Platelet Clumps SLIGHT; Platelet Count 290 thou/uL (130-400); RBC Distribution Width 13.3 % (11.5-14.5); Red Blood Cell (RBC) Count 4.24 mill/uL (4.20-5.40); White Blood Cell (WBC) Count 21.1 thou/uL (4.8-10.8)
[2020-11-22 10:54] LABS: ALT (SGPT) 13 U/L (8-55); AST (SGOT) 18 U/L (5-34); Albumin 3.9 g/dL (3.4-4.8); Alkaline Phosphatase 101 U/L (40-110); Anion Gap 17 mmol/L (10-20); BUN (Urea Nitrogen) 35 mg/dL (9.8-20.1); Calc. Creatinine Clearance 0 mL/min (70-130); Calcium 9.7 mg/dL (7.8-10.44); Carbon Dioxide 24 mmol/L (23-31); Chloride 113 mmol/L (98-107); Globulin 3.5 g/dL (2.4-3.5); Glucose 212 mg/dL (83-110); Potassium 4.6 mmol/L (3.5-5.1); Protein, Total 7.4 g/dL (5.8-8.1); Sodium 149 mmol/L (136-145)
[2020-11-22] MEDS ORDERED: Calcium Carbonate 500 MG ChewTAB PO PRN (12:50)
[2020-11-22] MEDS ORDERED: Acetaminophen 325 MG TAB PO PRN (12:50)
[2020-11-22] MEDS ORDERED: Ondansetron ODT 4 MG TAB PO PRN (12:50)
[2020-11-22] MEDS ORDERED: Dextrose 50% Abboject 50 ML SYRINGE SLOW IVP PRN (12:50)
[2020-11-22] MEDS ORDERED: Ondansetron PF 4 MG/2 ML Vial IVP PRN (12:50)
[2020-11-22] MEDS ORDERED: Dextrose 5% in Water 1,000 ML IV PRN (12:50)
[2020-11-22 13:27] LABS: Lactic Acid 3.1 mmol/L (0.5-2.2)
[2020-11-22] MEDS: Lactated Ringer's 1,000 ML IV SCH ×2 (16:13→20:18)
[2020-11-22] MEDS ORDERED: Vancomycin 1.5 GRAM/300 ML BAG 1.5 GM in Premix Bag 1 BAG IVPB SCH (16:45)
[2020-11-22] MEDS ORDERED: hydrALAZINE 20 MG/ML VIAL SLOW IVP SCH (17:15)
[2020-11-22] MEDS: HumaLOG 300 UNITS/3 ML VIAL SC PRN ×2 (17:28→20:20)
[2020-11-22] MEDS: Docusate 100 MG CAP PO SCH (20:11)
[2020-11-22] MEDS: Atorvastatin Calcium 10 MG TAB PO SCH (20:11)
[2020-11-22] MEDS: metroNIDAZOLE 500 MG in Premix Bag 1 BAG IVPB SCH (20:19)
[2020-11-22] MEDS: Acetaminophen 650 MG Suppository PR PRN (20:22)
[2020-11-23] MEDS: Lactated Ringer's 1,000 ML IV SCH ×3 (02:45→22:00)
[2020-11-23] MEDS: Levothyroxine Sodium 125 MCG TAB PO SCH (05:41)
[2020-11-23] MEDS: metroNIDAZOLE 500 MG in Premix Bag 1 BAG IVPB SCH ×3 (05:42→22:01)
[2020-11-23] MEDS: Acetaminophen 650 MG Suppository PR PRN (06:00)
[2020-11-23] MEDS: HumaLOG 300 UNITS/3 ML VIAL SC PRN (06:07)
[2020-11-23 06:56] LABS: #Eosinphils 0.1 thou/uL (0.0-0.7); #Lymphocytes 2.4 thou/uL (1.20-3.40); #Monocytes 1.4 thou/uL (0.11-0.59); #Neutrophils 15.9 thou/uL (1.40-6.50); %Basophils 0.1 % (0.0-1.0); %Eosinophils 0.3 % (0.0-10.0); %Monocytes 6.9 % (0.0-10.0); %Neutrophils 80.7 % (42.0-75.0); Hemoglobin 12.3 g/dL (12.0-16.0); Mean Corpuscular HGB CONC 33.8 g/dL (32.0-36.0); Mean Corpuscular Hemoglobin 32.4 pg (27.0-31.0); Mean Platelet Volume 7.6 fL (7.4-10.4); Platelet Count 253 thou/uL (130-400); RBC Distribution Width 13.3 % (11.5-14.5); Red Blood Cell (RBC) Count 3.79 mill/uL (4.20-5.40); White Blood Cell (WBC) Count 19.7 thou/uL (4.8-10.8)
[2020-11-23 07:28] LABS: Anion Gap 17 mmol/L (10-20); BUN (Urea Nitrogen) 27 mg/dL (9.8-20.1); Calc. Creatinine Clearance 49 mL/min (70-130); Calcium 9.1 mg/dL (7.8-10.44); Carbon Dioxide 22 mmol/L (23-31); Chloride 116 mmol/L (98-107); Glucose 223 mg/dL (83-110); Potassium 4.3 mmol/L (3.5-5.1); Sodium 151 mmol/L (136-145)
[2020-11-23] MEDS: Gabapentin 300 MG CAP PO SCH (08:46)
[2020-11-23] MEDS: Ascorbic Acid 500 mg Chewable Tablet PO SCH (08:46)
[2020-11-23] MEDS: Floranex 1 GM Packet PO SCH (08:46)
[2020-11-23] MEDS: Docusate 100 MG CAP PO SCH ×2 (08:46→22:01)
[2020-11-23] MEDS: Amlodipine 5 MG TAB PO SCH (08:46)
[2020-11-23] MEDS: Escitalopram Oxalate 10 mg Tablet PO SCH (08:46)
[2020-11-23] MEDS: Lidocaine 5% Patch TD SCH (08:48)
[2020-11-23] MEDS: Lantus 1000 UNITS/10 ML VIAL SC SCH (08:50)
[2020-11-23] MEDS: Enoxaparin Sodium 40 MG/0.4 ML SYRINGE SC SCH (08:51)
[2020-11-23 09:45] LABS: T4 4.8 ug/dL (4.87-11.72); Thyroid Stimulating Hormone 5.2467 uIU/mL (0.35-4.94)
[2020-11-23] MEDS ORDERED: cefTRIAXone Sodium 1,000 MG in Syringe 0 ML IVPB SCH (10:00)
[2020-11-23] MEDS: cefTRIAXone\\ROCEPHIN 1 GM in Sodium Chloride 0.9% 100 ML IVPB SCH (10:55)
[2020-11-23 16:19] LABS: Vancomycin, Random 10.9 ug/mL (See Comment)
[2020-11-23] MEDS ORDERED: Vancomycin 1 GM in Premix Bag 1 BAG IVPB SCH (16:45)
[2020-11-23] MEDS ORDERED: Vancomycin 1.5 GRAM/300 ML BAG 1.5 GM in Premix Bag 1 BAG IVPB SCH (17:30)
[2020-11-23] MEDS: Atorvastatin Calcium 10 MG TAB PO SCH (22:00)
[2020-11-23] MEDS: Lidocaine Patch Removal TOP SCH (22:01)
[2020-11-24] MEDS: Lactated Ringer's 1,000 ML IV SCH ×3 (01:39→18:03)
[2020-11-24] MEDS: Levothyroxine Sodium 125 MCG TAB PO SCH (06:45)
[2020-11-24] MEDS: metroNIDAZOLE 500 MG in Premix Bag 1 BAG IVPB SCH (06:45)
[2020-11-24] MEDS: Floranex 1 GM Packet PO SCH (07:13)
[2020-11-24] MEDS: Ascorbic Acid 500 mg Chewable Tablet PO SCH (07:14)
[2020-11-24] MEDS: Amlodipine 5 MG TAB PO SCH (07:14)
[2020-11-24] MEDS: Docusate 100 MG CAP PO SCH ×2 (07:14→20:06)
[2020-11-24] MEDS: Escitalopram Oxalate 10 mg Tablet PO SCH (07:14)
[2020-11-24] MEDS: Gabapentin 300 MG CAP PO SCH (07:14)
[2020-11-24] MEDS: Lantus 1000 UNITS/10 ML VIAL SC SCH (07:15)
[2020-11-24] MEDS: Lidocaine 5% Patch TD SCH (07:15)
[2020-11-24 08:32] LABS: #Eosinphils 0.3 thou/uL (0.0-0.7); #Lymphocytes 2.6 thou/uL (1.20-3.40); #Neutrophils 13.2 thou/uL (1.40-6.50); %Basophils 0.3 % (0.0-1.0); %Eosinophils 1.6 % (0.0-10.0); %Lymphocytes 15.1 % (21.0-51.0); %Monocytes 6.1 % (0.0-10.0); %Neutrophils 76.9 % (42.0-75.0); Hemoglobin 11.9 g/dL (12.0-16.0); Mean Corpuscular HGB CONC 33.3 g/dL (32.0-36.0); Mean Corpuscular Hemoglobin 31.7 pg (27.0-31.0); Mean Corpuscular Volume 95.2 fL (78.0-98.0); Mean Platelet Volume 7.5 fL (7.4-10.4); Platelet Count 258 thou/uL (130-400); Red Blood Cell (RBC) Count 3.76 mill/uL (4.20-5.40); White Blood Cell (WBC) Count 17.1 thou/uL (4.8-10.8)
[2020-11-24 08:59] LABS: Anion Gap 14 mmol/L (10-20); BUN (Urea Nitrogen) 20 mg/dL (9.8-20.1); Calc. Creatinine Clearance 57 mL/min (70-130); Calcium 9.1 mg/dL (7.8-10.44); Carbon Dioxide 21 mmol/L (23-31); Chloride 113 mmol/L (98-107); Glucose 194 mg/dL (83-110); Potassium 4.1 mmol/L (3.5-5.1); Sodium 144 mmol/L (136-145)
[2020-11-24] MEDS: cefTRIAXone\\ROCEPHIN 1 GM in Sodium Chloride 0.9% 100 ML IVPB SCH (08:59)
[2020-11-24] MEDS: Enoxaparin Sodium 40 MG/0.4 ML SYRINGE SC SCH (09:00)
[2020-11-24] MEDS: Ampicillin/Sulbactam 3 GM in Sodium Chloride 0.9% 100 ML IVPB SCH ×3 (11:13→23:13)
[2020-11-24] MEDS ORDERED: Vancomycin 1.5 GRAM/300 ML BAG 1.5 GM in Premix Bag 1 BAG IVPB SCH (18:00)
[2020-11-24] MEDS ORDERED: Famotidine/PF 20 mg/2ml Vial SLOW IVP SCH (20:00)
[2020-11-24] MEDS ORDERED: diphenhydrAMINE 50 MG/ML VIAL IVP SCH (20:00)
[2020-11-24] MEDS: Atorvastatin Calcium 10 MG TAB PO SCH (20:06)
[2020-11-24] MEDS ORDERED: Vancomycin 1 GM in Premix Bag 1 BAG IVPB SCH (21:00)
[2020-11-24] MEDS: Lidocaine Patch Removal TOP SCH (23:28)
[2020-11-25] MEDS: Ampicillin/Sulbactam 3 GM in Sodium Chloride 0.9% 100 ML IVPB SCH ×4 (04:17→23:05)
[2020-11-25] MEDS: Levothyroxine Sodium 125 MCG TAB PO SCH (04:17)
[2020-11-25] MEDS: HumaLOG 300 UNITS/3 ML VIAL SC PRN ×3 (04:17→17:27)
[2020-11-25 06:29] LABS: #Basophils 0.1 thou/uL (0.0-0.2); #Eosinphils 0.7 thou/uL (0.0-0.7); #Lymphocytes 2.5 thou/uL (1.20-3.40); #Monocytes 0.8 thou/uL (0.11-0.59); #Neutrophils 9.6 thou/uL (1.40-6.50); %Basophils 0.6 % (0.0-1.0); %Eosinophils 4.8 % (0.0-10.0); %Lymphocytes 18.4 % (21.0-51.0); %Monocytes 5.9 % (0.0-10.0); %Neutrophils 70.3 % (42.0-75.0); Hemoglobin 11.4 g/dL (12.0-16.0); Mean Corpuscular HGB CONC 33.9 g/dL (32.0-36.0); Mean Corpuscular Volume 94.4 fL (78.0-98.0); Mean Platelet Volume 8.1 fL (7.4-10.4); Platelet Count 240 thou/uL (130-400); RBC Distribution Width 13.1 % (11.5-14.5); Red Blood Cell (RBC) Count 3.56 mill/uL (4.20-5.40); White Blood Cell (WBC) Count 13.7 thou/uL (4.8-10.8)
[2020-11-25 06:37] LABS: Anion Gap 15 mmol/L (10-20); BUN (Urea Nitrogen) 18 mg/dL (9.8-20.1); Calc. Creatinine Clearance 57 mL/min (70-130); Calcium 8.8 mg/dL (7.8-10.44); Carbon Dioxide 18 mmol/L (23-31); Chloride 115 mmol/L (98-107); Glucose 282 mg/dL (83-110); Potassium 3.7 mmol/L (3.5-5.1); Sodium 144 mmol/L (136-145)
[2020-11-25] MEDS: Enoxaparin Sodium 40 MG/0.4 ML SYRINGE SC SCH (08:30)
[2020-11-25] MEDS: Ascorbic Acid 500 mg Chewable Tablet PO SCH (08:30)
[2020-11-25] MEDS: Floranex 1 GM Packet PO SCH (08:30)
[2020-11-25] MEDS: Gabapentin 300 MG CAP PO SCH (08:30)
[2020-11-25] MEDS: Escitalopram Oxalate 10 mg Tablet PO SCH (08:31)
[2020-11-25] MEDS: Amlodipine 5 MG TAB PO SCH (08:31)
[2020-11-25] MEDS: Docusate 100 MG CAP PO SCH ×2 (08:32→23:04)
[2020-11-25] MEDS: Lidocaine 5% Patch TD SCH (08:36)
[2020-11-25] MEDS: Lantus 1000 UNITS/10 ML VIAL SC SCH (10:17)
[2020-11-25 17:19] LABS: Vancomycin, Trough 24.6 ug/mL
[2020-11-25] MEDS: Atorvastatin Calcium 10 MG TAB PO SCH (21:45)
[2020-11-25] MEDS: Lidocaine Patch Removal TOP SCH (23:04)
[2020-11-25] MEDS: hydrALAZINE 20 MG/ML VIAL SLOW IVP PRN (23:19)
[2020-11-26] MEDS: Ampicillin/Sulbactam 3 GM in Sodium Chloride 0.9% 100 ML IVPB SCH ×4 (04:45→21:54)
[2020-11-26] MEDS: Levothyroxine Sodium 125 MCG TAB PO SCH (04:46)
[2020-11-26] MEDS: HumaLOG 300 UNITS/3 ML VIAL SC PRN ×4 (06:06→22:04)
[2020-11-26 06:56] LABS: #Eosinphils 0.6 thou/uL (0.0-0.7); #Monocytes 0.7 thou/uL (0.11-0.59); #Neutrophils 7.9 thou/uL (1.40-6.50); %Basophils 0.4 % (0.0-1.0); %Eosinophils 5.7 % (0.0-10.0); %Lymphocytes 17.6 % (21.0-51.0); %Monocytes 6.1 % (0.0-10.0); %Neutrophils 70.3 % (42.0-75.0); Hemoglobin 11.2 g/dL (12.0-16.0); Mean Corpuscular HGB CONC 33.2 g/dL (32.0-36.0); Mean Corpuscular Hemoglobin 31.2 pg (27.0-31.0); Mean Platelet Volume 7.6 fL (7.4-10.4); Platelet Count 284 thou/uL (130-400); RBC Distribution Width 13.1 % (11.5-14.5); White Blood Cell (WBC) Count 11.3 thou/uL (4.8-10.8)
[2020-11-26 07:20] LABS: Anion Gap 14 mmol/L (10-20); BUN (Urea Nitrogen) 16 mg/dL (9.8-20.1); Calc. Creatinine Clearance 53 mL/min (70-130); Calcium 9.3 mg/dL (7.8-10.44); Carbon Dioxide 22 mmol/L (23-31); Chloride 112 mmol/L (98-107); Glucose 299 mg/dL (83-110); Potassium 3.3 mmol/L (3.5-5.1); Sodium 145 mmol/L (136-145)
[2020-11-26] MEDS: Enoxaparin Sodium 40 MG/0.4 ML SYRINGE SC SCH (08:19)
[2020-11-26] MEDS: Lantus 1000 UNITS/10 ML VIAL SC SCH (08:19)
[2020-11-26] MEDS: Floranex 1 GM Packet PO SCH (08:19)
[2020-11-26] MEDS: Amlodipine 5 MG TAB PO SCH (08:20)
[2020-11-26] MEDS: Escitalopram Oxalate 10 mg Tablet PO SCH (08:20)
[2020-11-26] MEDS: Ascorbic Acid 500 mg Chewable Tablet PO SCH (08:20)
[2020-11-26] MEDS: Gabapentin 300 MG CAP PO SCH (08:20)
[2020-11-26] MEDS: Lidocaine 5% Patch TD SCH (08:21)
[2020-11-26] MEDS: Docusate 100 MG CAP PO SCH ×2 (08:21→21:53)
[2020-11-26] MEDS ORDERED: Amlodipine 5 MG TAB PO SCH (09:08)
[2020-11-26] MEDS: hydrALAZINE 20 MG/ML VIAL SLOW IVP PRN ×2 (09:14→21:54)
[2020-11-26] MEDS ORDERED: Lactated Ringer's 1,000 ML IV SCH (09:30)
[2020-11-26] MEDS ORDERED: Amlodipine 10 MG TAB PO SCH (10:00)
[2020-11-26] MEDS ORDERED: Potassium Chloride 20 MEQ in Premix Bag 1 BAG IVPB SCH (10:00)
[2020-11-26] MEDS ORDERED: Sodium Chloride 0.9% 500 ML IV SCH (19:15)
[2020-11-26] MEDS: Atorvastatin Calcium 10 MG TAB PO SCH (21:53)
[2020-11-26] MEDS: Lidocaine Patch Removal TOP SCH (21:54)
[2020-11-27] MEDS: hydrALAZINE 20 MG/ML VIAL SLOW IVP PRN (01:40)
[2020-11-27] MEDS: Ampicillin/Sulbactam 3 GM in Sodium Chloride 0.9% 100 ML IVPB SCH ×4 (04:55→21:30)
[2020-11-27] MEDS: HumaLOG 300 UNITS/3 ML VIAL SC PRN ×4 (05:17→20:11)
[2020-11-27] MEDS: Levothyroxine Sodium 125 MCG TAB PO SCH (05:21)
[2020-11-27 07:23] LABS: #Basophils 0.1 thou/uL (0.0-0.2); #Eosinphils 0.8 thou/uL (0.0-0.7); #Lymphocytes 2.1 thou/uL (1.20-3.40); #Monocytes 0.8 thou/uL (0.11-0.59); #Neutrophils 9.7 thou/uL (1.40-6.50); %Basophils 0.5 % (0.0-1.0); %Eosinophils 5.8 % (0.0-10.0); %Lymphocytes 15.9 % (21.0-51.0); %Neutrophils 71.8 % (42.0-75.0); Hemoglobin 11.6 g/dL (12.0-16.0); Mean Corpuscular HGB CONC 34.6 g/dL (32.0-36.0); Mean Corpuscular Hemoglobin 32.2 pg (27.0-31.0); Mean Platelet Volume 7.8 fL (7.4-10.4); Platelet Count 268 thou/uL (130-400); RBC Distribution Width 13.1 % (11.5-14.5); White Blood Cell (WBC) Count 13.5 thou/uL (4.8-10.8)
[2020-11-27 07:42] LABS: Anion Gap 11 mmol/L (10-20); BUN (Urea Nitrogen) 16 mg/dL (9.8-20.1); Calc. Creatinine Clearance 57 mL/min (70-130); Calcium 9.4 mg/dL (7.8-10.44); Carbon Dioxide 23 mmol/L (23-31); Chloride 106 mmol/L (98-107); Glucose 289 mg/dL (83-110); Potassium 3.4 mmol/L (3.5-5.1); Sodium 137 mmol/L (136-145)
[2020-11-27] MEDS: Lidocaine 5% Patch TD SCH (08:51)
[2020-11-27] MEDS: Docusate 100 MG CAP PO SCH ×2 (08:52→20:09)
[2020-11-27] MEDS: Floranex 1 GM Packet PO SCH (08:55)
[2020-11-27] MEDS: Gabapentin 300 MG CAP PO SCH (08:55)
[2020-11-27] MEDS: Ascorbic Acid 500 mg Chewable Tablet PO SCH (08:55)
[2020-11-27] MEDS: Escitalopram Oxalate 10 mg Tablet PO SCH (08:55)
[2020-11-27] MEDS: Amlodipine 10 MG TAB PO SCH (08:55)
[2020-11-27] MEDS: Enoxaparin Sodium 40 MG/0.4 ML SYRINGE SC SCH (08:56)
[2020-11-27] MEDS: Lantus 1000 UNITS/10 ML VIAL SC SCH (08:56)
[2020-11-27] MEDS ORDERED: Lisinopril 10 MG TAB PO SCH (14:00)
[2020-11-27] MEDS: Atorvastatin Calcium 10 MG TAB PO SCH (20:08)
[2020-11-27] MEDS: Lidocaine Patch Removal TOP SCH ×2 (20:09→21:00)
[2020-11-28] MEDS: Ampicillin/Sulbactam 3 GM in Sodium Chloride 0.9% 100 ML IVPB SCH ×2 (03:40→10:37)
[2020-11-28] MEDS: HumaLOG 300 UNITS/3 ML VIAL SC PRN ×3 (05:16→21:22)
[2020-11-28] MEDS: Levothyroxine Sodium 125 MCG TAB PO SCH (05:34)
[2020-11-28] MEDS: Docusate 100 MG CAP PO SCH ×2 (08:21→20:45)
[2020-11-28] MEDS: Lidocaine 5% Patch TD SCH (08:22)
[2020-11-28] MEDS: Floranex 1 GM Packet PO SCH (08:30)
[2020-11-28] MEDS: Gabapentin 300 MG CAP PO SCH (08:30)
[2020-11-28] MEDS: Lantus 1000 UNITS/10 ML VIAL SC SCH (08:30)
[2020-11-28] MEDS: Ascorbic Acid 500 mg Chewable Tablet PO SCH (08:30)
[2020-11-28] MEDS: Enoxaparin Sodium 40 MG/0.4 ML SYRINGE SC SCH (08:30)
[2020-11-28] MEDS: Escitalopram Oxalate 10 mg Tablet PO SCH (08:31)
[2020-11-28] MEDS: Amlodipine 10 MG TAB PO SCH (08:31)
[2020-11-28] MEDS: Lisinopril 10 MG TAB PO SCH (08:31)
[2020-11-28 09:52] LABS: Hemoglobin 11.1 g/dL (12.0-16.0); Mean Corpuscular HGB CONC 34.6 g/dL (32.0-36.0); Mean Corpuscular Hemoglobin 31.9 pg (27.0-31.0); Mean Corpuscular Volume 92.1 fL (78.0-98.0); Mean Platelet Volume 7.8 fL (7.4-10.4); Platelet Count 279 thou/uL (130-400); Red Blood Cell (RBC) Count 3.47 mill/uL (4.20-5.40); White Blood Cell (WBC) Count 12.9 thou/uL (4.8-10.8)
[2020-11-28 10:38] LABS: Anion Gap 13 mmol/L (10-20); BUN (Urea Nitrogen) 14 mg/dL (9.8-20.1); Calc. Creatinine Clearance 60 mL/min (70-130); Carbon Dioxide 23 mmol/L (23-31); Chloride 102 mmol/L (98-107); Glucose 264 mg/dL (83-110); Potassium 3.2 mmol/L (3.5-5.1); Sodium 135 mmol/L (136-145)
[2020-11-28] MEDS ORDERED: Lantus 1000 UNITS/10 ML VIAL SC SCH (10:45)
[2020-11-28 10:54] LABS: Band 4 % (5-11); Eosinophils 7 % (0-10); Lymphocytes 18 % (21-51); MDiff Complete? YES; Metamyelocyte 1 % (0-0); Monocytes 6 % (0-10); Neutrophil 63 % (42-75); RBC Morphology Normal
[2020-11-28] MEDS ORDERED: Potassium Chloride 20 MEQ in Premix Bag 1 BAG IVPB SCH ×2 (11:45→20:00)
[2020-11-28] MEDS ORDERED: Potassium Chloride 20 MEQ TAB PO SCH (12:30)
[2020-11-28] MEDS: Atorvastatin Calcium 10 MG TAB PO SCH (20:45)
[2020-11-28] MEDS: Amoxicillin/Potassium Clav 875 MG TAB PO SCH (20:45)
[2020-11-28] MEDS: Lidocaine Patch Removal TOP SCH (20:48)
[2020-11-28 21:36] LABS: Magnesium 1.7 mg/dL (1.6-2.6)
[2020-11-29] MEDS: Levothyroxine Sodium 125 MCG TAB PO SCH (05:39)
[2020-11-29] MEDS: HumaLOG 300 UNITS/3 ML VIAL SC PRN ×3 (05:52→16:31)
[2020-11-29 08:50] LABS: Anion Gap 15 mmol/L (10-20); BUN (Urea Nitrogen) 15 mg/dL (9.8-20.1); Calc. Creatinine Clearance 58 mL/min (70-130); Carbon Dioxide 20 mmol/L (23-31); Chloride 106 mmol/L (98-107); Glucose 203 mg/dL (83-110); Potassium 4.2 mmol/L (3.5-5.1); Sodium 137 mmol/L (136-145)
[2020-11-29] MEDS: Lidocaine 5% Patch TD SCH (08:58)
[2020-11-29] MEDS: Escitalopram Oxalate 10 mg Tablet PO SCH (08:58)
[2020-11-29] MEDS: Ascorbic Acid 500 mg Chewable Tablet PO SCH (08:58)
[2020-11-29] MEDS: Amoxicillin/Potassium Clav 875 MG TAB PO SCH ×2 (08:58→19:20)
[2020-11-29] MEDS: Amlodipine 10 MG TAB PO SCH (08:58)
[2020-11-29] MEDS: Enoxaparin Sodium 40 MG/0.4 ML SYRINGE SC SCH (08:58)
[2020-11-29] MEDS: Floranex 1 GM Packet PO SCH (08:58)
[2020-11-29] MEDS: Lisinopril 10 MG TAB PO SCH (08:59)
[2020-11-29] MEDS: Gabapentin 300 MG CAP PO SCH (08:59)
[2020-11-29] MEDS ORDERED: Lantus 1000 UNITS/10 ML VIAL SC SCH (09:00)
[2020-11-29] MEDS: Docusate Sodium 100 MG/10 ML UDCUP PO SCH ×2 (09:11→19:20)
[2020-11-29 11:01] VITALS: BMI 38.7
[2020-11-29 11:22] LABS: #Eosinphils 1.1 thou/uL (0.0-0.7); #Lymphocytes 2.6 thou/uL (1.20-3.40); #Monocytes 0.9 thou/uL (0.11-0.59); #Neutrophils 8.7 thou/uL (1.40-6.50); %Basophils 0.3 % (0.0-1.0); %Eosinophils 7.8 % (0.0-10.0); %Lymphocytes 19.4 % (21.0-51.0); %Monocytes 7.1 % (0.0-10.0); %Neutrophils 65.4 % (42.0-75.0); Hemoglobin 11.7 g/dL (12.0-16.0); Mean Corpuscular HGB CONC 33.5 g/dL (32.0-36.0); Mean Corpuscular Hemoglobin 31.3 pg (27.0-31.0); Mean Corpuscular Volume 93.5 fL (78.0-98.0); Mean Platelet Volume 9.3 fL (7.4-10.4); Platelet Count 146 thou/uL (130-400); RBC Distribution Width 13.4 % (11.5-14.5); Red Blood Cell (RBC) Count 3.74 mill/uL (4.20-5.40); White Blood Cell (WBC) Count 13.4 thou/uL (4.8-10.8)
[2020-11-29] MEDS: Lidocaine Patch Removal TOP SCH (19:20)
[2020-11-29] MEDS: Atorvastatin Calcium 10 MG TAB PO SCH (19:20)
[2020-11-29 19:39] VITALS: BP 163/86; TEMP 98.4
== END 2020-11-29 20:20 | DRG 871 ==
LOC: ERS 09:18 → T4-A 11:34
PROVIDERS: ADMIT Family Medicine; ATTEND Family Medicine
PROC: 0D9670Z Drainage of Stomach with Drainage Device, Via Natural or Artificial Opening (ICD-10-PCS; principal; 2020-11-22)
DX: A41.51 Sepsis due to Escherichia coli [E. coli] (principal); G93.41 Metabolic encephalopathy; I13.0 Hypertensive heart and chronic kidney disease with heart failure and stage 1 through stage 4 chronic kidney disease, or unspecified chronic kidney disease; N39.0 Urinary tract infection, site not specified; I50.32 Chronic diastolic (congestive) heart failure; N17.9 Acute kidney failure, unspecified; E87.2 Acidosis; Z66 Do not resuscitate; Z20.822 Contact with and (suspected) exposure to COVID-19; I25.10 Atherosclerotic heart disease of native coronary artery without angina pectoris; B18.2 Chronic viral hepatitis C; E03.9 Hypothyroidism, unspecified; N18.30 Chronic kidney disease, stage 3 unspecified; F41.9 Anxiety disorder, unspecified; F32.A Depression, unspecified; E11.22 Type 2 diabetes mellitus with diabetic chronic kidney disease; F03.90 Unspecified dementia, unspecified severity, without behavioral disturbance, psychotic disturbance, mood disturbance, and anxiety; E66.01 Morbid (severe) obesity due to excess calories; K21.9 Gastro-esophageal reflux disease without esophagitis; K59.00 Constipation, unspecified; K11.20 Sialoadenitis, unspecified; G89.29 Other chronic pain; Z88.5 Allergy status to narcotic agent; Z88.1 Allergy status to other antibiotic agents; Z95.0 Presence of cardiac pacemaker; Z79.899 Other long term (current) drug therapy; Z79.4 Long term (current) use of insulin; Z98.890 Other specified postprocedural states; Z68.38 Body mass index [BMI] 38.0-38.9, adult
CPT/HCPCS: 36415; 36416; 51701; 70450; 70490; 71045; 74018; 80048; 80053; 80202; 81003; 81015; 83605; 83735; 84145; 84436; 84443; 85025; 87040; 87077; 87086; 87149; 87186; 93005; 96365; 96366; J0295; J0360; J0696; J1200; J1650; J1815; J3370; J3480; J3490; J7120; S0028

== ENCOUNTER 2020-12-25 16:11 | Inpatient (IN) | payer MEDICARE, OTHER, MEDICAID ==
[2020-12-25 17:08] LABS: #Basophils 0.1 thou/uL (0.0-0.2); #Eosinphils 0.3 thou/uL (0.0-0.7); #Lymphocytes 3.2 thou/uL (1.20-3.40); #Monocytes 0.8 thou/uL (0.11-0.59); #Neutrophils 7.3 thou/uL (1.40-6.50); %Basophils 0.8 % (0.0-1.0); %Eosinophils 2.5 % (0.0-10.0); %Lymphocytes 27.1 % (21.0-51.0); %Monocytes 6.8 % (0.0-10.0); %Neutrophils 62.8 % (42.0-75.0); Hemoglobin 13.6 g/dL (12.0-16.0); Mean Corpuscular HGB CONC 31.9 g/dL (32.0-36.0); Mean Corpuscular Hemoglobin 31.6 pg (27.0-31.0); Mean Corpuscular Volume 98.8 fL (78.0-98.0); Mean Platelet Volume 8.2 fL (7.4-10.4); Platelet Count 288 thou/uL (130-400); RBC Distribution Width 13.6 % (11.5-14.5); Red Blood Cell (RBC) Count 4.31 mill/uL (4.20-5.40); White Blood Cell (WBC) Count 11.6 thou/uL (4.8-10.8)
[2020-12-25 17:43] LABS: ALT (SGPT) 12 U/L (8-55); AST (SGOT) 14 U/L (5-34); Albumin 3.6 g/dL (3.4-4.8); Alkaline Phosphatase 72 U/L (40-110); Anion Gap 16 mmol/L (10-20); BUN (Urea Nitrogen) 50 mg/dL (9.8-20.1); Bilirubin, Total 0.4 mg/dL (0.2-1.2); Calc. Creatinine Clearance 0 mL/min (70-130); Carbon Dioxide 21 mmol/L (23-31); Chloride 123 mmol/L (98-107); Globulin 3.6 g/dL (2.4-3.5); Glucose 217 mg/dL (83-110); Magnesium 2.1 mg/dL (1.6-2.6); Protein, Total 7.2 g/dL (5.8-8.1); Sodium 155 mmol/L (136-145)
[2020-12-25] MEDS ORDERED: Ondansetron ODT 4 MG TAB PO PRN (21:45)
[2020-12-25] MEDS ORDERED: Acetaminophen 325 MG TAB PO PRN (21:45)
[2020-12-25] MEDS ORDERED: Ondansetron PF 4 MG/2 ML Vial IVP PRN (21:45)
[2020-12-25] MEDS ORDERED: Dextrose 50% Abboject 50 ML SYRINGE SLOW IVP PRN (21:49)
[2020-12-25] MEDS ORDERED: HumaLOG 300 UNITS/3 ML VIAL SC PRN (21:49)
[2020-12-25] MEDS ORDERED: Dextrose 5% in Water 1,000 ML IV PRN (21:49)
[2020-12-25] MEDS ORDERED: Sodium Chloride 0.9% 1,000 ML IV SCH (22:00)
[2020-12-25 23:19] LABS: Hemoglobin A1c 7.5 % (4.0-6.0)
[2020-12-26 01:29] LABS: SARS-CoV-2 NAA Rapid Test Not Detected (NotDetected)
[2020-12-26 03:09] LABS: Anion Gap 18 mmol/L (10-20); BUN (Urea Nitrogen) 52 mg/dL (9.8-20.1); Calc. Creatinine Clearance 0 mL/min (70-130); Calcium 9.4 mg/dL (7.8-10.44); Carbon Dioxide 18 mmol/L (23-31); Glucose 171 mg/dL (83-110); Potassium 5.9 mmol/L (3.5-5.1); Sodium 157 mmol/L (136-145)
[2020-12-26 03:39] LABS: Chloride 127 mmol/L (98-107)
[2020-12-26] MEDS: Lactated Ringer's 1,000 ML IV SCH ×2 (05:41→12:58)
[2020-12-26] MEDS: Levothyroxine Sodium 125 MCG TAB PO SCH (06:57)
[2020-12-26 08:10] LABS: Anion Gap 16 mmol/L (10-20); BUN (Urea Nitrogen) 47 mg/dL (9.8-20.1); Calc. Creatinine Clearance 39 mL/min (70-130); Calcium 9.9 mg/dL (7.8-10.44); Carbon Dioxide 18 mmol/L (23-31); Chloride 125 mmol/L (98-107); Glucose 145 mg/dL (83-110); Potassium 5.1 mmol/L (3.5-5.1); Sodium 154 mmol/L (136-145)
[2020-12-26] MEDS ORDERED: Losartan 25 MG TAB PO SCH (09:00)
[2020-12-26] MEDS ORDERED: Lisinopril 10 MG TAB PO SCH (09:00)
[2020-12-26] MEDS ORDERED: Lantus 1000 UNITS/10 ML VIAL SC SCH (09:00)
[2020-12-26] MEDS ORDERED: Ergocalciferol 1.25 MG(50,000 UNITS) CAP PO SCH (09:00)
[2020-12-26] MEDS ORDERED: Insulin Glargine 25 UNITS in Pre-Filled Syringe 1 EACH SC SCH (09:00)
[2020-12-26] MEDS ORDERED: Enoxaparin Sodium 30 MG/0.3 ML SYRINGE SC SCH (09:00)
[2020-12-26] MEDS: Docusate 100 MG CAP PO SCH ×2 (09:17→21:36)
[2020-12-26] MEDS: Amlodipine 10 MG TAB PO SCH (09:17)
[2020-12-26] MEDS: Escitalopram Oxalate 10 mg Tablet PO SCH (09:18)
[2020-12-26] MEDS: Gabapentin 300 MG CAP PO SCH (09:18)
[2020-12-26] MEDS ORDERED: Enoxaparin Sodium 30 MG/0.3 ML SYRINGE ONE (09:19)
[2020-12-26] MEDS ORDERED: Famotidine 20 MG TAB ONE (09:22)
[2020-12-26] MEDS: Famotidine 20 MG TAB PO SCH (09:30)
[2020-12-26] MEDS: LACTINEX 1 TAB PO SCH (10:09)
[2020-12-26] MEDS ORDERED: Lactated Ringer's 500 ML IV SCH (11:45)
[2020-12-26] MEDS: Lantus 1000 UNITS/10 ML VIAL SC SCH (12:33)
[2020-12-26 12:41] LABS: Phosphorus 3.3 mg/dL (2.3-4.7)
[2020-12-26 13:10] VITALS: BMI 38.6
[2020-12-26 14:20] LABS: Anion Gap 12 mmol/L (10-20); BUN (Urea Nitrogen) 47 mg/dL (9.8-20.1); Calc. Creatinine Clearance 40 mL/min (70-130); Calcium 9.5 mg/dL (7.8-10.44); Carbon Dioxide 24 mmol/L (23-31); Chloride 122 mmol/L (98-107); Glucose 138 mg/dL (83-110); Potassium 4.7 mmol/L (3.5-5.1); Sodium 153 mmol/L (136-145)
[2020-12-26] MEDS: Dextrose 5% in Water 1,000 ML IV SCH ×2 (16:22→21:31)
[2020-12-26 17:54] LABS: Anion Gap 15 mmol/L (10-20); BUN (Urea Nitrogen) 44 mg/dL (9.8-20.1); Calc. Creatinine Clearance 43 mL/min (70-130); Calcium 9.3 mg/dL (7.8-10.44); Carbon Dioxide 19 mmol/L (23-31); Chloride 123 mmol/L (98-107); Glucose 136 mg/dL (83-110); Potassium 6.1 mmol/L (3.5-5.1); Sodium 151 mmol/L (136-145)
[2020-12-26] MEDS ORDERED: Atorvastatin Calcium 10 MG TAB PO SCH (21:00)
[2020-12-26 21:06] LABS: Creatinine, Urine 51.32 mg/dL (47-110)
[2020-12-26] MEDS: hydrALAZINE 20 MG/ML VIAL SLOW IVP PRN (21:30)
[2020-12-27] MEDS: Dextrose 5% in Water 1,000 ML IV SCH ×3 (03:13→08:29)
[2020-12-27] MEDS: Levothyroxine Sodium 125 MCG TAB PO SCH (05:37)
[2020-12-27 06:30] LABS: Anion Gap 15 mmol/L (10-20); BUN (Urea Nitrogen) 35 mg/dL (9.8-20.1); Calc. Creatinine Clearance 44 mL/min (70-130); Carbon Dioxide 16 mmol/L (23-31); Chloride 113 mmol/L (98-107); Glucose 248 mg/dL (83-110); Potassium 4.9 mmol/L (3.5-5.1); Sodium 139 mmol/L (136-145)
[2020-12-27] MEDS: HumaLOG 300 UNITS/3 ML VIAL SC PRN ×2 (06:44→12:45)
[2020-12-27] MEDS ORDERED: Dextrose 5%-Lactated Ringers 1,000 ML IV SCH (09:45)
[2020-12-27] MEDS: Amlodipine 10 MG TAB PO SCH (10:26)
[2020-12-27] MEDS: Gabapentin 300 MG CAP PO SCH (10:27)
[2020-12-27] MEDS: LACTINEX 1 TAB PO SCH (10:27)
[2020-12-27] MEDS: Docusate 100 MG CAP PO SCH ×2 (10:27→22:51)
[2020-12-27] MEDS: Enoxaparin Sodium 40 MG/0.4 ML SYRINGE SC SCH (10:28)
[2020-12-27] MEDS: Famotidine 20 MG TAB PO SCH (10:31)
[2020-12-27] MEDS: Escitalopram Oxalate 10 mg Tablet PO SCH (10:31)
[2020-12-27] MEDS: Lantus 1000 UNITS/10 ML VIAL SC SCH (10:42)
[2020-12-27] MEDS: Lactated Ringer's 1,000 ML IV SCH ×2 (10:43→17:27)
[2020-12-27 13:51] LABS: Anion Gap 13 mmol/L (10-20); BUN (Urea Nitrogen) 28 mg/dL (9.8-20.1); Calc. Creatinine Clearance 45 mL/min (70-130); Calcium 9.3 mg/dL (7.8-10.44); Carbon Dioxide 22 mmol/L (23-31); Chloride 109 mmol/L (98-107); Glucose 179 mg/dL (83-110); Sodium 140 mmol/L (136-145)
[2020-12-28] MEDS: Lactated Ringer's 1,000 ML IV SCH ×2 (01:20→11:02)
[2020-12-28] MEDS: hydrALAZINE 20 MG/ML VIAL SLOW IVP PRN (03:38)
[2020-12-28 05:13] LABS: Anion Gap 12 mmol/L (10-20); BUN (Urea Nitrogen) 26 mg/dL (9.8-20.1); Calc. Creatinine Clearance 46 mL/min (70-130); Calcium 9.3 mg/dL (7.8-10.44); Carbon Dioxide 22 mmol/L (23-31); Chloride 112 mmol/L (98-107); Glucose 186 mg/dL (83-110); Potassium 4.2 mmol/L (3.5-5.1); Sodium 142 mmol/L (136-145)
[2020-12-28] MEDS: HumaLOG 300 UNITS/3 ML VIAL SC PRN (05:59)
[2020-12-28] MEDS: Levothyroxine Sodium 125 MCG TAB PO SCH (05:59)
[2020-12-28] MEDS: Lantus 1000 UNITS/10 ML VIAL SC SCH (08:46)
[2020-12-28] MEDS: LACTINEX 1 TAB PO SCH (09:07)
[2020-12-28] MEDS: Docusate 100 MG CAP PO SCH (09:07)
[2020-12-28] MEDS: Enoxaparin Sodium 40 MG/0.4 ML SYRINGE SC SCH (09:07)
[2020-12-28] MEDS: Amlodipine 10 MG TAB PO SCH (09:07)
[2020-12-28] MEDS: Gabapentin 300 MG CAP PO SCH (09:08)
[2020-12-28] MEDS: Escitalopram Oxalate 10 mg Tablet PO SCH (09:08)
[2020-12-28] MEDS: Famotidine 20 MG TAB PO SCH (09:08)
[2020-12-28 19:46] VITALS: BP 141/65; TEMP 99
== END 2020-12-28 19:30 | DRG 683 ==
LOC: ERS 16:11 → ERHOLD 21:19 → 2NO 12-26 12:12 → OBSVTOIN 12-26 16:10
PROVIDERS: ADMIT Student in an Organized Health Care Education/Training Program; ATTEND Student in an Organized Health Care Education/Training Program
DX: N17.9 Acute kidney failure, unspecified (principal); E87.0 Hyperosmolality and hypernatremia; E03.9 Hypothyroidism, unspecified; Z20.822 Contact with and (suspected) exposure to COVID-19; E78.5 Hyperlipidemia, unspecified; E11.22 Type 2 diabetes mellitus with diabetic chronic kidney disease; I12.9 Hypertensive chronic kidney disease with stage 1 through stage 4 chronic kidney disease, or unspecified chronic kidney disease; N18.30 Chronic kidney disease, stage 3 unspecified; F32.A Depression, unspecified; E86.0 Dehydration; E87.5 Hyperkalemia; K21.9 Gastro-esophageal reflux disease without esophagitis; E87.8 Other disorders of electrolyte and fluid balance, not elsewhere classified; G30.1 Alzheimer's disease with late onset; F02.80 Dementia in other diseases classified elsewhere, unspecified severity, without behavioral disturbance, psychotic disturbance, mood disturbance, and anxiety; F41.9 Anxiety disorder, unspecified; Z96.653 Presence of artificial knee joint, bilateral; Z88.5 Allergy status to narcotic agent; Z88.1 Allergy status to other antibiotic agents; Z79.890 Hormone replacement therapy; Z79.899 Other long term (current) drug therapy; Z95.0 Presence of cardiac pacemaker; Z79.52 Long term (current) use of systemic steroids; Z74.01 Bed confinement status
CPT/HCPCS: 36415; 36416; 80048; 80053; 82570; 83036; 83735; 83930; 83935; 84100; 84134; 84300; 84443; 85025; 93005; 94760; J0360; J1650; J1815; J7050; J7070; J7120; U0002